=== PATIENT | female | born 1955 | race Two or more races ===

== ENCOUNTER 2019-08-30 08:10 | Day surgery (SDC) | payer MEDICAID ==
[~2019-08-30 08:10] MED LIST: Lactated Ringers 1,000 ML IV SCH; Lidocaine 1% 0 ML ONE; Lidocaine 1%/Sod Bicarbonate in NS 8.4% 1 ML Syringe IDERM PRN; Propofol 200 MG/20 ML SDV ONE; Sodium Chloride 0.9% 10 ML Syringe FLUSH PRN; fentaNYL 100 MCG/2 ML SDV ONE
[2019-08-30] MEDS: Lactated Ringers 1,000 ML IV SCH ×2 (08:42→11:00)
--- NOTE | 2019-08-30 09:22 | PCM.PREANE ---
Preanesthetic Assessment - Procedure Proposed Procedure: EGD and Colonoscopy - Anesthesia/Transfusion/Family Hx Anesthesia History: Prior Anesthesia Without Reaction Family History of Anesthesia Reaction: No - Review of Systems General: Night Sweats Pulmonary: No Symptoms, Other (SOB episode 2 months ago. Started on Furosemide daily with much improvement. ECHO also done with mild aortic and mitral valve regurgitation. EF 55-60%. Denies SOB today. ) Cardiovascular: No Symptoms, Other (Hypertension, EKG SR at 64 bpm. ) Gastrointestinal: No Symptoms Neurological: No Symptoms Other: Reports: None (Obesity with BMI 45), Diabetes (Blood Glucose 154 mg/dl) - Physical Assessment NPO Status Date: 08/29/19 NPO Status Time: 22:30 Vital Signs: Last Vital Signs Temp 36.4 C 08/30/19 08:15 Pulse 85 08/30/19 08:15 Resp 16 08/30/19 08:15 BP 186/70 H 08/30/19 09:00 Pulse Ox 95 08/30/19 08:15 Height: 1.55 m Weight: 112.037 kg ASA Class: 3 Mental Status: Alert & Oriented x3 Airway Class: Mallampati = 3 Dentition: Reports: Missing Tooth/Teeth (Decay noted at gumline, black. Denies loose teeth. Discussed bite block and possible dental injury to teeth. ), Caries Thyro-Mental Finger Breadths: 2 Mouth Opening Finger Breadths: 2 ROM/Head Extension: Full Lungs: Clear to Auscultation, Normal Respiratory Effort - Lab Values: Laboratory Last Values POC Glucose 154 mg/dL (80-115) H 08/30/19 08:42 - Allergies Allergies/Adverse Reactions: Allergies Allergy/AdvReac Type Severity Reaction Status Date / Time No Known Allergies Allergy Verified 08/30/19 09:09 - Acknowledgements Anesthesia Type Planned: MAC Pt an Appropriate Candidate for the Planned Anesthesia: Yes Alternatives and Risks of Anesthesia Discussed w Pt/Guardian: Yes Pt/Guardian Understands and Agrees with Anesthesia Plan: Yes PreAnesthesia Questionnaire HEENT History: Reports: Impaired Vision, Other (See Below) Other HEENT History: wears glasses Cardiovascular History: Reports: High Cholesterol, Hypertension Respiratory History: Reports: Asthma Genitourinary History: Reports: None 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 History: Reports: None Neurological History: Reports: None Psychiatric History: Reports: None Endocrine/Metabolic History: Reports: Diabetes, Type II Hematologic History: Reports: None Immunologic History: Reports: None Oncologic (Cancer) History: Reports: None Dermatologic History: Reports: None - Past Surgical History Head Surgeries/Procedures: Reports: None Cardiovascular Surgical History: Reports: None Respiratory Surgical History: Reports: None GI Surgical History: Reports: Colonoscopy Female Surgical History: Reports: Section Male Surgical History: Reports: None Endocrine Surgical History: Reports: None Neurological Surgical History: Reports: None Musculoskeletal Surgical History: Reports: None Oncologic Surgical History: Reports: None Dermatological Surgical History: Reports: None - SUBSTANCE USE Smoking Status *Q: Former Smoker Recreational Drug Use History: No - HOME MEDS Home Medications: Home Meds Insulin Glargine,Hum.Rec.Anlog [Lantus Solostar] 35 units SQ BID 04/14/18 [ History] Aspirin [Adult Low Dose Aspirin EC] 81 mg PO DAILY 08/29/19 [History] Furosemide [Lasix] 20 mg PO DAILY 08/29/19 [History] Losartan [Cozaar] 50 mg PO DAILY 08/29/19 [History] Simvastatin [Zocor] 40 mg PO BEDTIME 08/29/19 [History] metFORMIN HCl [Metformin HCl] 1,000 mg PO BID 08/29/19 [History] - CURRENT (IN HOUSE) MEDS Current Meds: Current Medications Lactated Ringer's (Ringers, Lactated) 1,000 mls @ 125 mls/hr IV ASDIRECTED RAUDEL Stop: 08/30/19 23:00 Last Admin: 08/30/19 08:42 Dose: 125 mls/hr Lidocaine/Sodium Bicarbonate (Buffered Lidocaine 1% In Ns 8.4%) 0.25 ml IDERM ONETIME PRN PRN Reason: Prior to IV Start Stop: 08/30/19 23:00 Last Admin: 08/30/19 08:40 Dose: 0.25 ml Sodium Chloride (Saline Flush) 10 ml FLUSH ASDIRECTED PRN PRN Reason: Keep Vein Open Stop: 08/30/19 18:00 Discontinued Medications Fentanyl (Sublimaze) Confirm Administered Dose 100 mcg .ROUTE .STK-MED ONE Stop: 04/15/18 13:41 Lactated Ringer's (Ringers, Lactated) 1,000 mls @ 125 mls/hr IV ASDIRECTED RAUDEL Stop: 04/15/18 23:00 Lidocaine HCl (Xylocaine-Mpf 1%) Confirm Administered Dose 4 mls @ as directed .ROUTE .STK-MED ONE Stop: 04/15/18 13:42 Lactated Ringer's (Ringers, Lactated) 1,000 mls @ 125 mls/hr IV ASDIRECTED RAUDEL Stop: 08/23/19 23:00 Lidocaine/Sodium Bicarbonate (Buffered Lidocaine 1% In Ns 8.4%) 0.25 ml IDERM ONETIME PRN PRN Reason: Prior to IV Start Stop: 04/15/18 18:00 Lidocaine/Sodium Bicarbonate (Buffered Lidocaine 1% In Ns 8.4%) 0.25 ml IDERM ONETIME PRN PRN Reason: Prior to IV Start Stop: 08/23/19 18:00 Propofol (Diprivan 20 Ml) Confirm Administered Dose 400 mg .ROUTE .STK-MED ONE Stop: 04/15/18 13:41 Sodium Chloride (Saline Flush) 10 ml FLUSH ASDIRECTED PRN PRN Reason: Keep Vein Open Stop: 04/15/18 18:00 Sodium Chloride (Saline Flush) 10 ml FLUSH ASDIRECTED PRN PRN Reason: Keep Vein Open Stop: 08/23/19 18:00
[2019-08-30] MEDS ORDERED: Propofol 200 MG/20 ML SDV ONE ×2 (09:24→09:25)
[2019-08-30] MEDS ORDERED: Lidocaine 1% 4 ML ONE (09:27)
[2019-08-30] MEDS ORDERED: fentaNYL 100 MCG/2 ML SDV ONE (09:28)
--- NOTE | 2019-08-30 10:24 | PCM.OPNOTE ---
- General Post-Op/Procedure Note Date of Surgery/Procedure: 08/30/19 Operative Procedure(s): EGD and colonoscopy Findings: 1. Gastritis 2. Irregular GE junction 3. Poor preparation with large particulate stool matter in the colon 4. First colon polyp 5. Rectal polyps Pre Op Diagnosis: History of colon polyps, dysphagia Post-Op Diagnosis: Same Anesthesia Technique: MAC Primary Surgeon: Kaya Alcocer Anesthesia Provider: Brian Ivey Pathology: 1. Antrum biopsy 2. GE junction biopsy 3. Transverse colon polyp 4. Rectal polyps x2 Fluid Replacement, Intraop: 1,000 Output, Urine Amount: 0 EBL in mLs: 0 Complications: None apparent Condition: Good
--- NOTE | 2019-08-30 10:32 | PCM48HPAN ---
Post Anesthesia Note - EVALUATION WITHIN 48HRS OF ANESTHETIC Vital Signs in Normal Range: Yes Patient Participated in Evaluation: Yes (still somewhat somnolent) Respiratory Function Stable: Yes Airway Patent: Yes Cardiovascular Function Stable: Yes Hydration Status Stable: Yes Pain Control Satisfactory: Yes Nausea and Vomiting Control Satisfactory: Yes Mental Status Recovered: Yes (still somewhat somnolent) Vital Signs: Last Vital Signs Temp 97.1 F 08/30/19 10:22 Pulse 78 08/30/19 10:22 Resp 16 08/30/19 10:22 BP 155/69 H 08/30/19 10:22 Pulse Ox 97 08/30/19 10:22
--- NOTE | 2019-08-30 12:06 | PCM.PRNOTE ---
- Free Text/Narrative Note: Operative Report Date of Procedure: August 30, 2019 Pre Op Diagnosis: Dysphagia and history of colon polyps Post-Op Diagnosis: Same Operative Procedures: 1. EGD with biopsy 2. Colonoscopy to the cecum Primary Surgeon: Kaya Alcocer MD Anesthesia Provider: Brian Ivey CRNA Anesthesia Technique: MAC IV Fluid Replacement, Intraop: 1000cc crystalloid Output, Urine Amount: 0cc EBL in mLs: 0cc Findings: 1. Gastritis 2. Irregular GE junction 3. Poor preparation with large particulate stool matter in the colon 4. Transverse colon polyp 5. Rectal polyps Specimens: 1. Antrum biopsy 2. GE junction biopsy 3. Transverse colon polyp 4. Rectal polyps x2 Drain/Tubes: None Indication: The patient is a 63-year-old lady who presented to the clinic with numbness of dysphasia as well as a history of colon polyps. The patient was consented for a diagnostic EGD and colonoscopy. Risks of bleeding, and perforation were discussed, and the patient agreed to the risks and wished to proceed. Description of the procedure: The patient was taken back to the endoscopy suite, and placed in the left lateral decubitus position. A bite block was placed. The patient was sedated with MAC anesthesia. The Olympus video endoscope was inserted into the oropharynx and guided under direct vision into the esophagus, stomach, and duodenum. The duodenal bulb and second portion of the duodenum were unremarkable. The scope was withdrawn to the gastric antrum which was inspected and cold biopsy forceps were used to take tissue samples for H. pylori. The scope was retroflexed. There was no increased fluid, food or secretions in the upper gastrointestinal tract. There was mild erythema throughout consistent with gastritis as well as some small petechial areas in the gastric antrum. No erosions or ulcers were noted. The scope was withdrawn to the esophagus. The Z- line some irregularity and biopsies were taken in 4 quadrants using cold biopsy forceps. No specific Barretts esophagus changes were noted. The endoscope was then withdrawn Next, anorectal examination was performed. No lesions, masses or hemorrhoids were noted externally or on palpation. The scope was placed into the rectum and advanced to cecum. Upon reaching the cecum, and the patients cecum was entered. There was minimal tortuosity of the colon. The ileocecal valve was well visualized and the appendiceal orifice identified. At this point, the scope was slowly withdrawn, paying attention to the mucosa. The patient had a poor bowel prep, large particulate stool was residual in the cecum and ascending colon preventing visualization of the mucosa. This cannot be removed with washing or suctioning. A fat, 2 to 3 mm transverse colon polyp was noted and removed using jumbo cold biopsy forceps. 2 flat polyps were noted in the rectum measuring 2 to 3 mm, these were removed using jumbo cold biopsy forceps. In the rectum, scope was retroflexed and some hemorrhoidal tissue was noted. The scope was placed back in the lumen and excess air was aspirated. The scope was removed. The patient tolerated the procedure very well. Complications: None apparent Condition: The patient was transported to PACU in stable condition. Kaya Alcocer MD General Surgery
== END 2019-08-30 11:33 | disposition home or self-care (01) ==
LOC: JD.SDS 08:10
PROVIDERS: ATTEND Surgery
DX: Z12.11 Encounter for screening for malignant neoplasm of colon (principal); K29.70 Gastritis, unspecified, without bleeding; K63.5 Polyp of colon; K62.1 Rectal polyp; K20.9 Esophagitis, unspecified; K22.8 Other specified diseases of esophagus; Q43.8 Other specified congenital malformations of intestine; K64.9 Unspecified hemorrhoids; I12.9 Hypertensive chronic kidney disease with stage 1 through stage 4 chronic kidney disease, or unspecified chronic kidney disease; E11.22 Type 2 diabetes mellitus with diabetic chronic kidney disease; N18.9 Chronic kidney disease, unspecified; E78.5 Hyperlipidemia, unspecified; Z86.010 Personal history of colon polyps; Z79.4 Long term (current) use of insulin; Z79.82 Long term (current) use of aspirin; Z87.891 Personal history of nicotine dependence; Z79.899 Other long term (current) drug therapy
CPT/HCPCS: 43239; 45380; 82962; J2001; J2704; J3010; J7120

== ENCOUNTER 2019-11-22 15:30 | Emergency (ER) | payer MEDICAID ==
--- NOTE | 2019-11-22 16:04 | EDM.PDOC ---
ED HPI GENERAL MEDICAL PROBLEM - General Chief Complaint: Back Pain or Injury Stated Complaint: BACK PAIN Time Seen by Provider: 11/22/19 15:39 Source of Information: Reports: Patient History Limitations: Reports: No Limitations - History of Present Illness INITIAL COMMENTS - FREE TEXT/NARRATIVE: Patient is a 63-year-old female who presents with complaints of a left lateral neck pain that radiates to her left shoulder and left upper back. The pain is worse with movement of the head and is tender to palpation. She is concerned because in the past she has had a pleural effusion which caused pain in her back and she wants to ensure that she does not have fluid in her lungs. She denies any shortness of breath or chest pain, however does states she gets a little winded with exertion. She did not do any heavy lifting today. She denies any chest pain, diaphoresis, or shortness of breath at rest. She has a past medical history significant for high cholesterol, hypertension, and a cardiac murmur diagnosed about 7 years ago. She cannot remember the cause of her murmur. She has no history of AR or congestive heart failure. Left Back Pain Score (Numeric/FACES): 8 - Related Data Allergies Allergy/AdvReac Type Severity Reaction Status Date / Time No Known Allergies Allergy Verified 11/22/19 15:46 Home Meds: Home Meds Insulin Glargine,Hum.Rec.Anlog [Lantus Solostar] 35 units SQ BID 04/14/18 [ History] Aspirin [Adult Low Dose Aspirin EC] 81 mg PO DAILY 08/29/19 [History] Furosemide [Lasix] 20 mg PO DAILY 08/29/19 [History] Losartan [Cozaar] 50 mg PO DAILY 08/29/19 [History] Simvastatin [Zocor] 40 mg PO BEDTIME 08/29/19 [History] metFORMIN HCl [Metformin HCl] 1,000 mg PO BID 08/29/19 [History] Past Medical History HEENT History: Reports: Impaired Vision, Other (See Below) Other HEENT History: wears glasses Cardiovascular History: Reports: Heart Murmur, High Cholesterol, Hypertension Respiratory History: Reports: Asthma Genitourinary History: Reports: None 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 History: Reports: None Neurological History: Reports: None Psychiatric History: Reports: None Endocrine/Metabolic History: Reports: Diabetes, Type II Hematologic History: Reports: None Immunologic History: Reports: None Oncologic (Cancer) History: Reports: None Dermatologic History: Reports: None - Past Surgical History Head Surgeries/Procedures: Reports: None Cardiovascular Surgical History: Reports: None Respiratory Surgical History: Reports: None GI Surgical History: Reports: Colonoscopy Female Surgical History: Reports: Section Endocrine Surgical History: Reports: None Neurological Surgical History: Reports: None Musculoskeletal Surgical History: Reports: None Oncologic Surgical History: Reports: None Dermatological Surgical History: Reports: None Social & Family History - Tobacco Use Smoking Status *Q: Never Smoker Second Hand Smoke Exposure: No - Caffeine Use Caffeine Use: Reports: None - Recreational Drug Use Recreational Drug Use: No ED ROS GENERAL - Review of Systems Review Of Systems: See Below Constitutional: Reports: No Symptoms. Denies: Fever, Chills HEENT: Reports: No Symptoms Respiratory: Reports: No Symptoms. Denies: Shortness of Breath, Cough Cardiovascular: Reports: Dyspnea on Exertion. Denies: Chest Pain, Lightheadedness, Palpitations, Syncope Endocrine: Reports: No Symptoms GI/Abdominal: Reports: No Symptoms. Denies: Abdominal Pain : Reports: No Symptoms Musculoskeletal: Reports: Neck Pain (left lateral), Shoulder Pain (left ), Back Pain (left upper ) Skin: Reports: No Symptoms Neurological: Reports: No Symptoms Psychiatric: Reports: No Symptoms Hematologic/Lymphatic: Reports: No Symptoms Immunologic: Reports: No Symptoms ED EXAM, UPPER BACK/NECK PAIN - Physical Exam Exam: See Below Exam Limited By: No Limitations General Appearance: Alert, WD/WN, No Apparent Distress Head Exam: Atraumatic, Normocephalic Neck Exam: Full Range of Motion, Normal Alignment, Normal Inspection, Tenderness (Left lateral neck) Cardiovascular/Respiratory: Regular Rate, Rhythm, Normal Peripheral Pulses, No JVD, Normal Breath Sounds, No Respiratory Distress, Murmur GI/Abdominal: Normal Bowel Sounds, Soft, Non-Tender, No Organomegaly, No Distention, No Abnormal Bruit, No Mass Back Exam: Normal Inspection, Full Range of Motion, Other (Tenderness to palpation medial to the left scapula) Extremities: Normal Inspection, Normal Range of Motion, Non-Tender, No Pedal Edema, Normal Capillary Refill Neurologic: ball holder II-XII nml As Tested, No Motor/Sensory Deficits, Alert, Normal Mood/Affect, Oriented x 3 Psychiatric: Normal Affect, Normal Mood Skin Exam: Normal Color, Warm/Dry EKG INTERPRETATION EKG Date: 11/22/19 Time: 16:10 Rhythm: NSR Rate (Beats/Min): 63 Vivian: Normal P-Wave: Present QRS: Normal ST-T: Normal QT: Normal Comparison: NA - No Prior EKG Course - Vital Signs Last Recorded V/S: Last Vital Signs Temp 97.6 F 11/22/19 18:00 Pulse 70 11/22/19 18:00 Resp 18 11/22/19 18:00 BP 187/70 H 11/22/19 18:00 Pulse Ox 95 11/22/19 18:00 - Orders/Labs/Meds Orders: Active Orders 24 hr Category Date Time Status Cardiac Monitoring [RC] . DIRECTED Care 11/22/19 16:57 Active EKG Documentation Completion [RC] STAT Care 11/22/19 16:04 Active Chest 2V [CR] Stat Exams 11/22/19 16:03 Taken Labs: Laboratory Tests 11/22/19 11/22/19 11/22/19 Range/Units 16:20 16:20 16:20 WBC 9.96 (3.98-10.04) K/mm3 RBC 4.53 (3.98-5.22) M/mm3 Hgb 12.3 (11.2-15.7) gm/dl Hct 39.2 (34.1-44.9) % MCV 86.5 (79.4-94.8) fl MCH 27.2 (25.6-32.2) pg MCHC 31.4 L (32.2-35.5) g/dl RDW Std Deviation 45.2 (36.4-46.3) fL Plt Count 192 (182-369) K/mm3 MPV 12.4 H (9.4-12.3) fl Neut % (Auto) 68.1 (34.0-71.1) % Lymph % (Auto) 22.2 (19.3-51.7) % Larimer % (Auto) 6.9 (4.7-12.5) % Eos % (Auto) 2.1 (0.7-5.8) Baso % (Auto) 0.5 (0.1-1.2) % Neut # (Auto) 6.78 H (1.56-6.13) K/mm3 Lymph # (Auto) 2.21 (1.18-3.74) K/mm3 Larimer # (Auto) 0.69 H (0.24-0.36) K/mm3 Eos # (Auto) 0.21 (0.04-0.36) K/mm3 Baso # (Auto) 0.05 (0.01-0.08) K/mm3 APTT 25 (22-31) SECONDS Sodium 138 (136-145) mEq/L Potassium 4.6 (3.5-5.1) mEq/L Chloride 103 (98-107) mEq/L Carbon Dioxide 27 (21-32) mEq/L Anion Gap 12.6 (5-15) BUN 28 H (7-18) mg/dL Creatinine 1.2 H (0.55-1.02) mg/dL Est Cr Clr Drug Dosing 39.18 mL/min Estimated GFR (MDRD) 45 (>60) mL/min BUN/Creatinine Ratio 23.3 H (14-18) Glucose 95 (80-115) mg/dL Calcium 8.8 (8.5-10.1) mg/dL Total Bilirubin 0.3 (0.2-1.0) mg/dL AST 12 L (15-37) U/L ALT 20 (14-59) U/L Alkaline Phosphatase 74 (46-116) U/L Troponin I 0.122 H* (0.00-0.056) ng/mL Total Protein 6.7 (6.4-8.2) g/dl Albumin 2.9 L (3.4-5.0) g/dl Globulin 3.8 gm/dL Albumin/Globulin Ratio 0.8 L (1-2) Meds: Medications Discontinued Medications Generic Name Dose Route Start Last Admin Trade Name Freq PRN Reason Stop Dose Admin Aspirin 324 mg 11/22/19 16:51 11/22/19 17:29 Aspirin PO 11/22/19 16:52 324 mg ONETIME ONE Administration Enoxaparin Sodium 120 mg 11/22/19 17:14 11/22/19 17:35 Lovenox SUBCUT 11/22/19 17:15 120 mg ONETIME ONE Administration Heparin Sodium (Porcine) 4,000 units 11/22/19 16:58 11/22/19 17:54 Heparin Sodium IVPUSH 11/22/19 16:59 Not Given .BOLUS ONE Heparin Sodium/Dextrose 25,000 units in 500 mls @ 20 mls/hr 11/22/19 17:00 Heparin 25,000 Units In D5w 500 Ml IV TITRATE [facility] Protocol 1,000 UNITS/HR Sodium Chloride 1,000 mls @ 125 mls/hr 11/22/19 17:15 11/22/19 17:30 Normal Saline IV 125 mls/hr ASDIRECTED RAUDEL Administration Metoprolol Tartrate 12.5 mg 11/22/19 16:55 11/22/19 17:31 Lopressor PO 11/22/19 16:56 12.5 mg ONETIME ONE Administration - Re-Assessments/Exams Free Text/Narrative Re-Assessment/Exam: 11/22/19 1651 Hematology was significant for a BUN elevated at 28, creatinine 1.2, troponin positive at 0.122. I have ordered aspirin 324 mg, metoprolol 12.5 mg p.o., NS at 125 ml/hr, and a heparin drip per non-STEMI protocol. I will call Nik to speak with cardiology. 11/22/19 1725 Called [facility] and spoke with medical malpractice paralegal on-call, Dr. Skinner. He recommended that we administer Lovenox 1 mg/kg instead of heparin drip. I have canceled the heparin drip and ordered Lovenox. He recommended patient be transferred to [place] to trend troponins and complete stress test. Spoke to the hospitalist on-call, Dr. Corrigan. He accepted the patient for a transfer with direct admission. [facility] will transport by ground ALS. Departure - Departure Time of Disposition: 17:25 Disposition: DC/Tfer to Acute Hospital 02 Condition: Good Clinical Impression: Non-STEMI (non-ST elevated myocardial infarction) - Discharge Information Referrals: Ana María Gibbs PA-C [Primary Care Provider] - Forms: ED Department Discharge Sepsis Event Note - Evaluation Sepsis Screening Result: No Definite Risk - Focused Exam Vital Signs: Vital Signs Temp Pulse Pulse Resp BP BP Pulse Ox 11/22/19 18:00 97.6 F 70 18 187/70 H 95 11/22/19 17:31 71 201/81 H 11/22/19 15:42 97.6 F 74 18 175/75 H 97 Date Exam was Performed: 11/22/19 Time Exam was Performed: 22:23 - My Orders Last 24 Hours: My Active Orders 11/22/19 16:03 Chest 2V [CR] Stat 11/22/19 16:04 EKG Documentation Completion [RC] STAT 11/22/19 16:57 Cardiac Monitoring [RC] . DIRECTED - Assessment/Plan Last 24 Hours: My Active Orders 11/22/19 16:03 Chest 2V [CR] Stat 11/22/19 16:04 EKG Documentation Completion [RC] STAT 11/22/19 16:57 Cardiac Monitoring [RC] . DIRECTED
[2019-11-22] MEDS ORDERED: Aspirin 81 MG Tab.Chew PO ONE (16:51)
[2019-11-22] MEDS ORDERED: Metoprolol Tartrate 25 MG Tab PO ONE (16:55)
[2019-11-22] MEDS ORDERED: Heparin Sodium 5,000 Units/ML Vial IVPUSH ONE (16:58)
[2019-11-22] MEDS ORDERED: Heparin Sodium/D5W 25,000 UNITS/500 ML BAG IV SCH (17:00)
[2019-11-22] MEDS ORDERED: Enoxaparin 120 MG/0.8 ML Syringe SUBCUT ONE (17:14)
[2019-11-22] MEDS ORDERED: Sodium Chloride 0.9% 1,000 ML IV SCH (17:15)
--- NOTE | 2019-11-23 07:16 | CR ---
Chest: 2 views of the chest were obtained. Comparison: No prior chest imaging is available. Heart size and mediastinum are within normal limits. Lungs are clear with no acute parenchymal change. Slight degenerative change is scattered within the spine. Impression: 1. Nothing acute is appreciated on 2 view chest x-ray. Diagnostic code #1 This report was dictated in MDT
== END 2019-11-22 18:20 ==
LOC: JD.ED 15:30
DX: I21.4 Non-ST elevation (NSTEMI) myocardial infarction (principal); E11.9 Type 2 diabetes mellitus without complications; J45.909 Unspecified asthma, uncomplicated; E78.00 Pure hypercholesterolemia, unspecified; I10 Essential (primary) hypertension; Z79.4 Long term (current) use of insulin; Z79.82 Long term (current) use of aspirin; Z79.899 Other long term (current) drug therapy
CPT/HCPCS: 36415; 71046; 80053; 84484; 85025; 85730; 93005; 96372; 99284; A9270; J1650; J7030

== ENCOUNTER 2021-05-19 09:53 | Inpatient (IN) | payer MEDICAID ==
[2021-05-19] MEDS ORDERED: Sodium Chloride 0.9% 10 ML Syringe FLUSH PRN (11:03)
--- NOTE | 2021-05-19 11:52 | EDM.PDOC ---
ED HPI GENERAL MEDICAL PROBLEM - General Chief Complaint: Respiratory Problem Stated Complaint: COUGH CONGESTION Time Seen by Provider: 05/19/21 10:33 Source of Information: Reports: Patient History Limitations: Reports: No Limitations - History of Present Illness INITIAL COMMENTS - FREE TEXT/NARRATIVE: 65-year-old female presents the emergency department with complaints of wor sening shortness of breath and congested cough. Patient states that the symptoms started approximately 3 days ago and is progressively worsening. She states she was seen at the walk-in clinic yesterday and they gave her some pills for her cough and they have not helped. She denies any recent fever, chills, headache, sore throat, nausea, vomiting or diarrhea. She denies any urinary symptoms. She states that shortness of breath worsens with any exertion. She states she is only able to walk a few steps and then she has to sit down and rest. O2 saturations during triage were in the low 80s with exertion. She denies any chest pain or pressure associated with this. Patient does have a history of diabetes and hypertension. - Related Data Allergies Allergy/AdvReac Type Severity Reaction Status Date / Time No Known Allergies Allergy Verified 05/19/21 10:36 Home Meds: Home Meds Insulin Glargine,Hum.Rec.Anlog [Lantus Solostar] 35 units SQ BID 04/14/18 [History] Aspirin [Adult Low Dose Aspirin EC] 81 mg PO DAILY 08/29/19 [History] Losartan [Cozaar] 50 mg PO DAILY 08/29/19 [History] Simvastatin [Zocor] 40 mg PO BEDTIME 08/29/19 [History] metFORMIN HCl [Metformin HCl] 1,000 mg PO BID 08/29/19 [History] Past Medical History HEENT History: Reports: Impaired Vision, Other (See Below) Other HEENT History: wears glasses Cardiovascular History: Reports: Heart Murmur, High Cholesterol, Hypertension Respiratory History: Reports: Asthma Genitourinary History: Reports: None [employer]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: Musculoskeletal History: Reports: None Neurological History: Reports: None Psychiatric History: Reports: None Endocrine/Metabolic History: Reports: Diabetes, Type II Hematologic History: Reports: None Immunologic History: Reports: None Oncologic (Cancer) History: Reports: None Dermatologic History: Reports: None - Past Surgical History Head Surgeries/Procedures: Reports: None Cardiovascular Surgical History: Reports: None Respiratory Surgical History: Reports: None GI Surgical History: Reports: Colonoscopy Female Surgical History: Reports: Section Endocrine Surgical History: Reports: None Neurological Surgical History: Reports: None Musculoskeletal Surgical History: Reports: None Oncologic Surgical History: Reports: None Dermatological Surgical History: Reports: None Social & Family History - Tobacco Use Tobacco Use Status *Q: Never Tobacco User - Caffeine Use Caffeine Use: Reports: Coffee - Recreational Drug Use Recreational Drug Use: No ED ROS GENERAL - Review of Systems Review Of Systems: Comprehensive ROS is negative, except as noted in HPI. ED EXAM, GENERAL - Physical Exam Exam: See Below Exam Limited By: No Limitations General Appearance: Alert, WD/WN, Mild Distress Ears: Normal External Exam, Hearing Grossly Normal Nose: Normal Inspection Throat/Mouth: Normal Inspection, Normal Lips, Normal Voice, No Airway Compromise Head: Atraumatic, Normocephalic Neck: Normal Inspection, Supple Respiratory/Chest: No Accessory Muscle Use, Chest Non-Tender, Respiratory Distress, Crackles, Wheezing Cardiovascular: Normal Peripheral Pulses, Regular Rate, Rhythm, No Edema, No Murmur Peripheral Pulses: 2+: Radial (L), Radial (R) GI/Abdominal: Normal Bowel Sounds, Soft, Non-Tender, No Distention (Female) Exam: Deferred Rectal (Female) Exam: Deferred Back Exam: Normal Inspection Extremities: Normal Inspection, Normal Range of Motion, Non-Tender, No Pedal Edema, Normal Capillary Refill Neurological: Alert, Oriented, Normal Cognition Psychiatric: Normal Affect, Normal Mood Skin Exam: Warm, Dry, Intact, Normal Color, No Rash Lymphatic: No Adenopathy #1 Interpretation EKG Date: 05/19/21 Time: 11:17 Rhythm: NSR Rate (Beats/Min): 89 [place]: Normal P-Wave: Present QRS: Normal ST-T: Normal QT: Normal Comparison: NA - No Prior EKG EKG Interpretation Comments: Per Dr. Santos interpretation: Sinus rhythm at 89 bpm; baseline wander in lead V1 Course - Vital Signs Text/Narrative:: As stated above, patient presents with 3-day history of worsening shortness of breath. Only able to walk a few steps and then needing to rest to catch her breath. Also complains of persistent loose cough. Upon exam, the patient has audible crackles noted. She also has expiratory wheezes noted bilaterally. Heart rate is regular and I do not appreciate a murmur. She does not have any edema to her bilateral lower extremities. Blood pressure is elevated at 190/76. O2 saturations are 85% on room air. I applied oxygen at 2 L per nasal cannula and patient's O2 saturations came up to 92%. I have ordered a Covid swab, portable chest x-ray, lab studies to include a CBC, CMP, C-reactive protein, magnesium, troponin and a proBNP. Last Recorded V/S: Last Vital Signs Temp Pulse 99 05/19/21 14:44 Resp 24 H 05/19/21 14:44 BP 137/80 05/19/21 14:44 Pulse Ox 94 L 05/19/21 14:44 - Orders/Labs/Meds Orders: Active Orders 24 hr Category Date Time Status Patient Status [ADT] Routine ADT 05/19/21 17:17 Active Antiembolic Devices [RC] PER UNIT ROUTINE Care 05/19/21 17:21 Active Blood Glucose Check, Bedside [RC] QIDACANDBED Care 05/19/21 17:19 Active Height and Weight [RC] DAILY Care 05/19/21 17:19 Active Intake and Output [RC] QSHIFT Care 05/19/21 17:19 Active Oxygen Therapy [RC] PRN Care 05/19/21 17:17 Active Pulse Oximetry [RC] CONTINUOUS Care 05/19/21 17:19 Active RT Aerosol Therapy [RC] ASDIRECTED Care 05/19/21 12:27 Active Up With Assistance [RC] ASDIRECTED Care 05/19/21 17:19 Active VTE/DVT Education [RC] PER UNIT ROUTINE Care 05/19/21 17:17 Active VTE/DVT Education [RC] PER UNIT ROUTINE Care 05/19/21 17:19 Active Vital Signs [RC] Q4H Care 05/19/21 17:17 Active Consult to Diabetic Nurse Specialist [CONS] Routine Cons 05/19/21 17:22 Active Consult to Homeland Security Program Specialist [CONS] Routine Cons 05/19/21 17:22 Active Respiratory Care Assess and Treatment [CONS] Routine Cons 05/19/21 17:22 Act glory 2 Gram Sodium Diet [DIET] Diet 05/19/21 Dinner Active Consistent Carbohydrate Diet [DIET] Diet 05/19/21 Dinner Active Chest 1V Frontal [CR] Stat Exams 05/19/21 11:03 Taken Echo 2D wo Cont [US] Stat Exams 05/20/21 08:00 Ordered BASIC METABOLIC PANEL,BMP [CHEM] DAILY Lab 05/20/21 06:00 Ordered BASIC METABOLIC PANEL,BMP [CHEM] DAILY Lab 05/21/21 06:00 Ordered BASIC METABOLIC PANEL,BMP [CHEM] DAILY Lab 05/22/21 06:00 Ordered BASIC METABOLIC PANEL,BMP [CHEM] DAILY Lab 05/23/21 06:00 Ordered CBC WITH AUTO DIFF [HEME] DAILY Lab 05/20/21 06:00 Ordered CBC WITH AUTO DIFF [HEME] DAILY Lab 05/21/21 06:00 Ordered CBC WITH AUTO DIFF [HEME] DAILY Lab 05/22/21 06:00 Ordered CBC WITH AUTO DIFF [HEME] DAILY Lab 05/23/21 06:00 Ordered MAGNESIUM [CHEM] AM Lab 05/20/21 05:11 Ordered PRO B-TYPE NATRIUR PEPT,BNPPRO [CHEM] Stat Lab 05/20/21 06:00 Ordered TROPONIN I [CHEM] AM Lab 05/20/21 05:11 Ordered Acetaminophen [TylenoL] Med 05/19/21 17:19 Active 650 mg PO Q4H PRN Docusate Sodium [Colace] Med 05/19/21 17:19 Active 100 mg PO BID PRN Furosemide [Lasix] Med 05/19/21 21:00 Active 40 mg IVPUSH BID Heparin Sodium Med 05/19/21 17:30 Active 5,000 units SUBCUT Q8H Ondansetron [Zofran ODT] Med 05/19/21 17:19 Active 4 mg PO Q4H PRN Ondansetron [Zofran] Med 05/19/21 17:19 Active 4 mg IV Q4H PRN Sodium Chloride 0.9% [Saline Flush] Med 05/19/21 11:03 Active 10 ml FLUSH ASDIRECTED PRN Saline Lock Insert [OM.PC] Stat Oth 05/19/21 11:03 Ordered Sequential Compression Device [OM.PC] Per Unit Routine Oth 05/19/21 17:20 Ordered Resuscitation Status Routine Resus Stat 05/19/21 17:17 Ordered Medication Orders Acetaminophen (Acetaminophen 325 Mg Tab) 650 mg PO Q4H PRN PRN Reason: Pain (Mild 1-3)/fever Docusate Sodium (Docusate Sodium 100 Mg Cap) 100 mg PO BID PRN PRN Reason: Constipation Furosemide (Furosemide 40 Mg/4 Ml Vial) 40 mg IVPUSH BID RAUDEL Heparin Sodium (Porcine) (Heparin Sodium 5,000 Units/Ml Vial) 5,000 units SUBCUT Q8H RAUDEL Ondansetron HCl (Ondansetron 4 Mg Tab.Dis) 4 mg PO Q4H PRN PRN Reason: nausea, able to take PO Ondansetron HCl (Ondansetron 4 Mg/2 Ml Sdv) 4 mg IV Q4H PRN PRN Reason: Nausea/Vomiting Sodium Chloride (Sodium Chloride 0.9% 10 Ml Syringe) 10 ml FLUSH ASDIRECTED PRN PRN Reason: Keep Vein Open Last Admin: 05/19/21 14:01 Dose: 10 ml Documented by: PAIGE Labs: Laboratory Tests 05/19/21 05/19/21 05/19/21 Range/Units 11:20 11:20 11:20 WBC 7.86 (3.98-10.04) K/mm3 RBC 4.52 (3.98-5.22) M/mm3 Hgb 12.3 (11.2-15.7) gm/dl Hct 39.3 (34.1-44.9) % MCV 86.9 (79.4-94.8) fl MCH 27.2 (25.6-32.2) pg MCHC 31.3 L (32.2-35.5) g/dl RDW Std Deviation 44.2 (36.4-46.3) fL Plt Count 157 L (182-369) K/mm3 MPV 11.8 (9.4-12.3) fl Neut % (Auto) 72.4 H (34.0-71.1) % Lymph % (Auto) 12.5 L (19.3-51.7) % Phillips % (Auto) 12.8 H (4.7-12.5) % Eos % (Auto) 1.7 (0.7-5.8) Baso % (Auto) 0.5 (0.1-1.2) % Neut # (Auto) 5.69 (1.56-6.13) K/mm3 Lymph # (Auto) 0.98 L (1.18-3.74) K/mm3 Phillips # (Auto) 1.01 H (0.24-0.36) K/mm3 Eos # (Auto) 0.13 (0.04-0.36) K/mm3 Baso # (Auto) 0.04 (0.01-0.08) K/mm3 Sodium 136 (136-145) mEq/L Potassium 3.8 (3.5-5.1) mEq/L Chloride 101 (98-107) mEq/L Carbon Dioxide 27 (21-32) mEq/L Anion Gap 11.8 (5-15) BUN 18 (7-18) mg/dL Creatinine 1.6 H (0.55-1.02) mg/dL Est Cr Clr Drug Dosing 28.61 mL/min Estimated GFR (MDRD) 32 (>60) mL/min BUN/Creatinine Ratio 11.3 L (14-18) Glucose 190 H (70-99) mg/dL Calcium 8.6 (8.5-10.1) mg/dL Magnesium 1.6 L (1.8-2.4) mg/dL Total Bilirubin 0.4 (0.2-1.0) mg/dL AST 10 L (15-37) U/L ALT 13 L (14-59) U/L Alkaline Phosphatase 60 (46-116) U/L Troponin I (0.00-0.056) ng/mL C-Reactive Protein 3.0 H* (<1.0) mg/dL NT-Pro-B Natriuret Pep 33717 H (0-125) pg/mL Total Protein 6.6 (6.4-8.2) g/dl Albumin 2.5 L (3.4-5.0) g/dl Globulin 4.1 gm/dL Albumin/Globulin Ratio 0.6 L (1-2) SARS-CoV-2 RNA (DIAMOND) (NEGATIVE) 05/19/21 05/19/21 Range/Units 11:41 14:20 WBC (3.98-10.04) K/mm3 RBC (3.98-5.22) M/mm3 Hgb (11.2-15.7) gm/dl Hct (34.1-44.9) % MCV (79.4-94.8) fl MCH (25.6-32.2) pg MCHC (32.2-35.5) g/dl RDW Std Deviation (36.4-46.3) fL Plt Count (182-369) K/mm3 MPV (9.4-12.3) fl Neut % (Auto) (34.0-71.1) % Lymph % (Auto) (19.3-51.7) % Phillips % (Auto) (4.7-12.5) % Eos % (Auto) (0.7-5.8) Baso % (Auto) (0.1-1.2) % Neut # (Auto) (1.56-6.13) K/mm3 Lymph # (Auto) (1.18-3.74) K/mm3 Phillips # (Auto) (0.24-0.36) K/mm3 Eos # (Auto) (0.04-0.36) K/mm3 Baso # (Auto) (0.01-0.08) K/mm3 Sodium (136-145) mEq/L Potassium (3.5-5.1) mEq/L Chloride (98-107) mEq/L Carbon Dioxide (21-32) mEq/L Anion Gap (5-15) BUN (7-18) mg/dL Creatinine (0.55-1.02) mg/dL Est Cr Clr Drug Dosing mL/min Estimated GFR (MDRD) (>60) mL/min BUN/Creatinine Ratio (14-18) Glucose (70-99) mg/dL Calcium (8.5-10.1) mg/dL Magnesium (1.8-2.4) mg/dL Total Bilirubin (0.2-1.0) mg/dL AST (15-37) U/L ALT (14-59) U/L Alkaline Phosphatase (46-116) U/L Troponin I 0.175 H* (0.00-0.056) ng/mL C-Reactive Protein (<1.0) mg/dL NT-Pro-B Natriuret Pep (0-125) pg/mL Total Protein (6.4-8.2) g/dl Albumin (3.4-5.0) g/dl Globulin gm/dL Albumin/Globulin Ratio (1-2) SARS-CoV-2 RNA (DIAMOND) Negative (NEGATIVE) Meds: Medications Generic Name Dose Route Start Last Admin Trade Name Freq PRN Reason Stop Dose Admin Acetaminophen 650 mg 05/19/21 17:19 Acetaminophen 325 Mg Tab PO Q4H PRN Pain (Mild 1-3)/fever Docusate Sodium 100 mg 05/19/21 17:19 Docusate Sodium 100 Mg Cap PO BID PRN Constipation Furosemide 40 mg 05/19/21 21:00 Furosemide 40 Mg/4 Ml Vial IVPUSH BID RAUDEL Heparin Sodium (Porcine) 5,000 units 05/19/21 17:30 Heparin Sodium 5,000 Units/Ml Vial SUBCUT Q8H RAUDEL Ondansetron HCl 4 mg 05/19/21 17:19 Ondansetron 4 Mg Tab.Dis PO Q4H PRN nausea, able to take PO Ondansetron HCl 4 mg 05/19/21 17:19 Ondansetron 4 Mg/2 Ml Sdv IV Q4H PRN Nausea/Vomiting Sodium Chloride 10 ml 05/19/21 11:03 05/19/21 14:01 Sodium Chloride 0.9% 10 Ml Syringe FLUSH 10 ml ASDIRECTED PRN Administration Keep Vein Open Discontinued Medications Generic Name Dose Route Start Last Admin Trade Name Yuriq PRN Reason Stop Dose Admin Albuterol 2.5 mg 05/19/21 12:27 05/19/21 12:52 Albuterol 0.083% 2.5 Mg/3 Ml Neb Soln NEB 05/19/21 12:28 2.5 mg ONETIME ONE Administration Furosemide 40 mg 05/19/21 12:59 05/19/21 14:01 Furosemide 40 Mg/4 Ml Vial IVPUSH 05/19/21 13:00 40 mg NOW ONE Administration Magnesium Sulfate 4 gm/ Premix 50 mls @ 12.5 mls/hr 05/19/21 13:38 05/19/21 14:42 IV 05/19/21 17:37 12.5 mls/hr ONETIME ONE Administration - Re-Assessments/Exams Free Text/Narrative Re-Assessment/Exam: 05/19/21 13:39 Hematology reveals a WBC of 7.86, hemoglobin 12.3, hematocrit 39.3, platelet count 157 Chemistry reveals a sodium of 136, potassium 3.8, anion gap 11.8, BUN 18, creatinine 1.6, glucose 190, magnesium 1.6, AST 10, ALT 13, C-reactive protein 3.0, proBNP 10,935 Troponin is pending I have ordered for the patient to receive magnesium 4 g IV 05/19/21 13:40 She also received Lasix 40 mg IV. Believe this patient likely needs to be hospitalized and diuresed. I did speak with director of nursing at [facility] in [place] and they are going to speak to their physician on-call and see if they will accept this patient in transfer. 05/19/21 13:40 Reviewed the results with the patient and she states she does believe she has a history of congestive heart failure in the past and was treated for this in [place]. She does not currently take any diuretics. 05/19/21 14:11 [facility] in [place] returned my call and they state that they were unable to take my patient in transfer at this time. 05/19/21 15:35 Troponin 0 0.175. Patient denies having any chest pain or discomfort. I do feel this patient needs to be hospitalized however there is no beds available at this facility. Once I have Covid results back I will attempt to transfer the patient for hospitalization. 05/19/21 17:01 Covid test is negative. Chest xray shows pulmonary vascular congestion; formal radiologist report is pending. I have spoken with , hospitalist and he is going to come over to evaluate the patient. Departure - Departure Time of Disposition: 17:29 Disposition: Admitted As Inpatient 65 Condition: Good Clinical Impression: Congestive heart failure Qualifiers: Heart failure type: unspecified Heart failure chronicity: acute Qualified Code(s): I50.9 - Heart failure, unspecified - Discharge Information Referrals: PCP,None [Primary Care Provider] - Forms: ED Department Discharge Sepsis Event Note (ED) - Focused Exam Vital Signs: Vital Signs Pulse Resp BP Pulse Ox Pulse Ox 05/19/21 14:44 99 24 H 137/80 94 L 05/19/21 12:52 97 05/19/21 10:27 99 20 190/76 H 92 L - My Orders Last 24 Hours: My Active Orders 05/19/21 11:03 Chest 1V Frontal [CR] Stat Sodium Chloride 0.9% [Saline Flush] 10 ml FLUSH ASDIRECTED PRN Saline Lock Insert [OM.PC] Stat 05/19/21 12:27 RT Aerosol Therapy [RC] ASDIRECTED - Assessment/Plan Last 24 Hours: My Active Orders 05/19/21 11:03 Chest 1V Frontal [CR] Stat Sodium Chloride 0.9% [Saline Flush] 10 ml FLUSH ASDIRECTED PRN Saline Lock Insert [OM.PC] Stat 05/19/21 12:27 RT Aerosol Therapy [RC] ASDIRECTED
[2021-05-19] MEDS ORDERED: Albuterol 0.083% 2.5 MG/3 ML Neb Soln NEB ONE (12:27)
[2021-05-19] MEDS ORDERED: Furosemide 40 MG/4 ML VIAL IVPUSH ONE (12:59)
[2021-05-19] MEDS ORDERED: Magnesium Sulfate/Water 4 GM in Premix Bag 1 BAG IV ONE (13:38)
[2021-05-19] MEDS ORDERED: Acetaminophen 325 MG Tab PO PRN (17:19)
[2021-05-19] MEDS ORDERED: Ondansetron 4 MG/2 ML SDV IV PRN (17:19)
[2021-05-19] MEDS ORDERED: Ondansetron 4 MG Tab.DIS PO PRN (17:19)
[2021-05-19] MEDS ORDERED: Heparin Sodium 5,000 Units/ML Vial SUBCUT SCH (17:30)
--- NOTE | 2021-05-19 17:32 | PCM.HP.2 ---
H&P History of Present Illness - General Date of Service: 05/19/21 Admit Problem/Dx: Admission Diagnosis/Problem Admission Diagnosis/Problem CHF, Congestive heart failure Source of Information: Patient, Provider History Limitations: Reports: No Limitations - History of Present Illness Initial Comments - Free Text/Narative: Patient is a 65-year-old female with a past medical history as listed below who presents to the emergency department with a chief complaint of cough and difficulties breathing. Patient states that she was in her usual state of health up until about 3 or 4 days ago when she started to experience a rather nagging cough. She has not had any sputum production. No recent sick contacts that she knows of. No constitutional symptoms including fever. Denies any chest pain, chest pressure or pleurisy. No nausea or vomiting. No lightheadedness or dizziness. She has been able to tolerate food. No dysuria. No skin changes. Patient states that over the past couple of days her breathing has become more labored and it is difficult to walk within the house even very short distances without becoming winded. She has not endorsed any specific troubles while sleeping. She does not believe that her feet are any more swollen than what they usually are. She states that she is excessively thirsty but she knows this is due to her diabetes. 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 They believe that her heart was worked up for either a mild heart attack or heart failure but they cannot disclose any further information. She does not remember what facility she was in. When asked about diuretics, she states that she used to be on them but has since discontinued them. She cannot describe her reasoning for discontinuing them. In the emergency department, she presented with hypoxia down to 86% on room air. This was remedied by a couple liters of oxygen via nasal cannula. Chest x-ray showing mild volume overload. She has a degree of cardiomegaly which is apparent. proBNP was high at 10,000. Troponins mildly elevated in the setting of hypoxia. Patient was ultimately referred to the internal medicine service for further management. Patient was also given Lasix to augment diuresis in the ER. - Related Data Allergies/Adverse Reactions: Allergies Allergy/AdvReac Type Severity Reaction Status Date / Time No Known Allergies Allergy Verified 05/19/21 10:36 Home Medications: Home Meds Insulin Glargine,Hum.Rec.Anlog [Lantus Solostar] 35 units SQ BID 04/14/18 [ History] Aspirin [Adult Low Dose Aspirin EC] 81 mg PO DAILY 08/29/19 [History] Losartan [Cozaar] 50 mg PO DAILY 08/29/19 [History] Simvastatin [Zocor] 40 mg PO BEDTIME 08/29/19 [History] metFORMIN HCl [Metformin HCl] 1,000 mg PO BID 08/29/19 [History] Past Medical History HEENT History: Reports: Impaired Vision, Other (See Below) Other HEENT History: wears glasses Cardiovascular History: Reports: Heart Murmur, High Cholesterol, Hypertension Respiratory History: Reports: Asthma Genitourinary History: Reports: None 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: Musculoskeletal History: Reports: None Neurological History: Reports: None Psychiatric History: Reports: None Endocrine/Metabolic History: Reports: Diabetes, Type II Hematologic History: Reports: None Immunologic History: Reports: None Oncologic (Cancer) History: Reports: None Dermatologic History: Reports: None - Past Surgical History Head Surgeries/Procedures: Reports: None Cardiovascular Surgical History: Reports: None Respiratory Surgical History: Reports: None GI Surgical History: Reports: Colonoscopy Female Surgical History: Reports: Section Endocrine Surgical History: Reports: None Neurological Surgical History: Reports: None Musculoskeletal Surgical History: Reports: None Oncologic Surgical History: Reports: None Dermatological Surgical History: Reports: None Social & Family History - Tobacco Use Tobacco Use Status *Q: Never Tobacco User - Caffeine Use Caffeine Use: Reports: Coffee - Recreational Drug Use Recreational Drug Use: No H&P Review of Systems - Review of Systems: Review Of Systems: Comprehensive ROS is negative, except as noted in HPI. Exam - Exam Exam: See Below - Vital Signs Vital Signs: Last Vital Signs Temp Pulse 99 05/19/21 14:44 Resp 24 H 05/19/21 14:44 BP 137/80 05/19/21 14:44 Pulse Ox 94 L 05/19/21 14:44 Weight: 238 lb 11.2 oz - Exam Physical Exam Comments:: General: Awake and alert, in no apparent distress. Nontoxic-appearing. HEENT: Normocephalic, atraumatic. Extra ocular muscles intact. Pupils equal and reactive to light. Nares are patent. Oropharynx clear without erythema or exudate. Tongue is midline. Wearing nasal cannula oxygen. Neck: Supple without lymphadenopathy. No goiter. Trachea midline. Heart: Regular rate and rhythm. S1 and S2 heard without murmur or extrasystoles. Lungs: Decreased breath sounds at bases. Was mostly clear. No wheezing, rales, rhonchi. Abdomen: Morbidly obese. Soft, nontender, nondistended. Positive bowel sounds. No CVA tenderness. No suprapubic tenderness. Extremities: Warm and perfused. Mild pitting edema in the lower extremities. Integument: No obvious rash or jaundice. No lymphadenopathy. Neurologic: Cranial nerves II through XII grossly intact. No obvious gross motor or sensory deficits. Psychiatric: Normal mood and affect. - Patient Data Lab Results Last 24 hrs: Laboratory Results - last 24 hr 05/19/21 05/19/21 05/19/21 Range/Units 11:20 11:20 11:20 WBC 7.86 (3.98-10.04) K/mm3 RBC 4.52 (3.98-5.22) M/mm3 Hgb 12.3 (11.2-15.7) gm/dl Hct 39.3 (34.1-44.9) % MCV 86.9 (79.4-94.8) fl MCH 27.2 (25.6-32.2) pg MCHC 31.3 L (32.2-35.5) g/dl RDW Std Deviation 44.2 (36.4-46.3) fL Plt Count 157 L (182-369) K/mm3 MPV 11.8 (9.4-12.3) fl Neut % (Auto) 72.4 H (34.0-71.1) % Lymph % (Auto) 12.5 L (19.3-51.7) % Lucas % (Auto) 12.8 H (4.7-12.5) % Eos % (Auto) 1.7 (0.7-5.8) Baso % (Auto) 0.5 (0.1-1.2) % Neut # (Auto) 5.69 (1.56-6.13) K/mm3 Lymph # (Auto) 0.98 L (1.18-3.74) K/mm3 Lucas # (Auto) 1.01 H (0.24-0.36) K/mm3 Eos # (Auto) 0.13 (0.04-0.36) K/mm3 Baso # (Auto) 0.04 (0.01-0.08) K/mm3 Sodium 136 (136-145) mEq/L Potassium 3.8 (3.5-5.1) mEq/L Chloride 101 (98-107) mEq/L Carbon Dioxide 27 (21-32) mEq/L Anion Gap 11.8 (5-15) BUN 18 (7-18) mg/dL Creatinine 1.6 H (0.55-1.02) mg/dL Est Cr Clr Drug Dosing 28.61 mL/min Estimated GFR (MDRD) 32 (>60) mL/min BUN/Creatinine Ratio 11.3 L (14-18) Glucose 190 H (70-99) mg/dL Calcium 8.6 (8.5-10.1) mg/dL Magnesium 1.6 L (1.8-2.4) mg/dL Total Bilirubin 0.4 (0.2-1.0) mg/dL AST 10 L (15-37) U/L ALT 13 L (14-59) U/L Alkaline Phosphatase 60 (46-116) U/L Troponin I (0.00-0.056) ng/mL C-Reactive Protein 3.0 H* (<1.0) mg/dL NT-Pro-B Natriuret Pep 44590 H (0-125) pg/mL Total Protein 6.6 (6.4-8.2) g/dl Albumin 2.5 L (3.4-5.0) g/dl Globulin 4.1 gm/dL Albumin/Globulin Ratio 0.6 L (1-2) SARS-CoV-2 RNA (DIAMOND) (NEGATIVE) 05/19/21 05/19/21 Range/Units 11:41 14:20 WBC (3.98-10.04) K/mm3 RBC (3.98-5.22) M/mm3 Hgb (11.2-15.7) gm/dl Hct (34.1-44.9) % MCV (79.4-94.8) fl MCH (25.6-32.2) pg MCHC (32.2-35.5) g/dl RDW Std Deviation (36.4-46.3) fL Plt Count (182-369) K/mm3 MPV (9.4-12.3) fl Neut % (Auto) (34.0-71.1) % Lymph % (Auto) (19.3-51.7) % Lucas % (Auto) (4.7-12.5) % Eos % (Auto) (0.7-5.8) Baso % (Auto) (0.1-1.2) % Neut # (Auto) (1.56-6.13) K/mm3 Lymph # (Auto) (1.18-3.74) K/mm3 Lucas # (Auto) (0.24-0.36) K/mm3 Eos # (Auto) (0.04-0.36) K/mm3 Baso # (Auto) (0.01-0.08) K/mm3 Sodium (136-145) mEq/L Potassium (3.5-5.1) mEq/L Chloride (98-107) mEq/L Carbon Dioxide (21-32) mEq/L Anion Gap (5-15) BUN (7-18) mg/dL Creatinine (0.55-1.02) mg/dL Est Cr Clr Drug Dosing mL/min Estimated GFR (MDRD) (>60) mL/min BUN/Creatinine Ratio (14-18) Glucose (70-99) mg/dL Calcium (8.5-10.1) mg/dL Magnesium (1.8-2.4) mg/dL Total Bilirubin (0.2-1.0) mg/dL AST (15-37) U/L ALT (14-59) U/L Alkaline Phosphatase (46-116) U/L Troponin I 0.175 H* (0.00-0.056) ng/mL C-Reactive Protein (<1.0) mg/dL NT-Pro-B Natriuret Pep (0-125) pg/mL Total Protein (6.4-8.2) g/dl Albumin (3.4-5.0) g/dl Globulin gm/dL Albumin/Globulin Ratio (1-2) SARS-CoV-2 RNA (DIAMOND) Negative (NEGATIVE) Result Diagrams: 05/19/21 11:20 05/19/21 11:20 Imaging Impressions Last 24 hrs: Chest x-ray personally reviewed. Formal reading pending. Mild CHF. Cardiomegaly. No dense infiltrates or effusions. Sepsis Event Note - Focused Exam Vital Signs: Vital Signs Pulse Resp BP Pulse Ox Pulse Ox 05/19/21 14:44 99 24 H 137/80 94 L 05/19/21 12:52 97 05/19/21 10:27 99 20 190/76 H 92 L Problem List Initiated/Reviewed/Updated: Yes Orders Last 24hrs: Active Orders 24 hr Category Date Time Status Patient Status [ADT] Routine ADT 05/19/21 17:17 Active Antiembolic Devices [RC] PER UNIT ROUTINE Care 05/19/21 17:21 Active Blood Glucose Check, Bedside [RC] QIDACANDBED Care 05/19/21 17:19 Active Height and Weight [RC] DAILY Care 05/19/21 17:19 Active Intake and Output [RC] QSHIFT Care 05/19/21 17:19 Active Oxygen Therapy [RC] PRN Care 05/19/21 17:17 Active Oxygen Therapy [RC] PRN Care 05/19/21 17:19 Active Pulse Oximetry [RC] CONTINUOUS Care 05/19/21 17:19 Active RT Aerosol Therapy [RC] ASDIRECTED Care 05/19/21 12:27 Active Up With Assistance [RC] ASDIRECTED Care 05/19/21 17:19 Active VTE/DVT Education [RC] PER UNIT ROUTINE Care 05/19/21 17:17 Active VTE/DVT Education [RC] PER UNIT ROUTINE Care 05/19/21 17:19 Active Vital Signs [RC] Q4H Care 05/19/21 17:17 Active Consult to Diabetic Nurse Specialist [CONS] Routine Cons 05/19/21 17:22 Active Consult to Oriental Rug Repairer [CONS] Routine Cons 05/19/21 17:22 Active Respiratory Care Assess and Treatment [CONS] Routine Cons 05/19/21 17:22 Active 2 Gram Sodium Diet [DIET] Diet 05/19/21 Dinner Active Consistent Carbohydrate Diet [DIET] Diet 05/19/21 Dinner Active Chest 1V Frontal [CR] Stat Exams 05/19/21 11:03 Taken Echo 2D wo Cont [US] Stat Exams 05/20/21 08:00 Ordered BASIC METABOLIC PANEL,BMP [CHEM] DAILY Lab 05/20/21 06:00 Ordered BASIC METABOLIC PANEL,BMP [CHEM] DAILY Lab 05/21/21 06:00 Ordered BASIC METABOLIC PANEL,BMP [CHEM] DAILY Lab 05/22/21 06:00 Ordered BASIC METABOLIC PANEL,BMP [CHEM] DAILY Lab 05/23/21 06:00 Ordered CBC WITH AUTO DIFF [HEME] DAILY Lab 05/20/21 06:00 Ordered CBC WITH AUTO DIFF [HEME] DAILY Lab 05/21/21 06:00 Ordered CBC WITH AUTO DIFF [HEME] DAILY Lab 05/22/21 06:00 Ordered CBC WITH AUTO DIFF [HEME] DAILY Lab 05/23/21 06:00 Ordered MAGNESIUM [CHEM] AM Lab 05/20/21 05:11 Ordered PRO B-TYPE NATRIUR PEPT,BNPPRO [CHEM] Stat Lab 05/20/21 06:00 Ordered TROPONIN I [CHEM] AM Lab 05/20/21 05:11 Ordered Acetaminophen [TylenoL] Med 05/19/21 17:19 Active 650 mg PO Q4H PRN Docusate Sodium [Colace] Med 05/19/21 17:19 Active 100 mg PO BID PRN Furosemide [Lasix] Med 05/19/21 21:00 Ordered 40 mg IVPUSH BID Heparin Sodium Med 05/19/21 17:30 Active 5,000 units SUBCUT Q8H Ondansetron [Zofran ODT] Med 05/19/21 17:19 Active 4 mg PO Q4H PRN Ondansetron [Zofran] Med 05/19/21 17:19 Active 4 mg IV Q4H PRN Sodium Chloride 0.9% [Saline Flush] Med 05/19/21 11:03 Active 10 ml FLUSH ASDIRECTED PRN Saline Lock Insert [OM.PC] Stat Oth 05/19/21 11:03 Ordered Sequential Compression Device [OM.PC] Per Unit Routine Oth 05/19/21 17:20 Ordered Resuscitation Status Routine Resus Stat 05/19/21 17:17 Ordered Medication Orders Acetaminophen (Acetaminophen 325 Mg Tab) 650 mg PO Q4H PRN PRN Reason: Pain (Mild 1-3)/fever Docusate Sodium (Docusate Sodium 100 Mg Cap) 100 mg PO BID PRN PRN Reason: Constipation Furosemide (Furosemide 40 Mg/4 Ml Vial) 40 mg IVPUSH BID RAUDEL Heparin Sodium (Porcine) (Heparin Sodium 5,000 Units/Ml Vial) 5,000 units SUBCUT Q8H RAUDEL Ondansetron HCl (Ondansetron 4 Mg Tab.Dis) 4 mg PO Q4H PRN PRN Reason: nausea, able to take PO Ondansetron HCl (Ondansetron 4 Mg/2 Ml Sdv) 4 mg IV Q4H PRN PRN Reason: Nausea/Vomiting Sodium Chloride (Sodium Chloride 0.9% 10 Ml Syringe) 10 ml FLUSH ASDIRECTED PRN PRN Reason: Keep Vein Open Last Admin: 05/19/21 14:01 Dose: 10 ml Documented by: PAIGE Assessment/Plan Comment:: 65-year-old female who presents to the emergency department with a chief complaint of cough and difficulty breathing found to be hypoxic requiring supplemental oxygen. Referred for CHF exacerbation. 1. Acute hypoxic respiratory failure. Admit to the hospitalist service for further management. Secondary to acute CHF exacerbation. Echo to establish diastolic versus systolic or perhaps both. Lasix 40 mg IV push twice daily. Fluid restriction of 2 L/day. Daily weights by standing scale only. RT consult. Bronchodilators as necessary. Wean supplemental oxygen as tolerated. Daily ambulation saturation trials. 2. Acute CHF exacerbation. Plan as above. Echocardiogram pending in the morning. 3. Type 2 diabetes mellitus. Hold metformin. Continue hospital hyperglycemia protocol. Check hemoglobin A1c. Dietitian and diabetes education. 3. Mild elevated troponin. Likely secondary to supply demand mismatch in the setting of hypoxia. Patient without chest pain. No EKG changes. Will recheck in the morning. No need for stomach anticoagulation currently. Echocardiogram pending. 4. CKD stage III nearly stage IV. Intermittent monitoring of labs. Avoid nephrotoxins. Renally dose medications if appropriate. Holding Metformin. Monitor volume status as she is requiring active diuresis. CODE STATUS: Full code. DVT prophylaxis with heparin and SCDs.
[2021-05-19] MEDS: Furosemide 40 MG/4 ML VIAL IVPUSH SCH (21:35)
[2021-05-19] MEDS: Insulin Glargine,Hum.Rec.Anlog 100 UNIT/ML 3 ML Pen SUBCUT SCH (21:36)
[2021-05-19] MEDS: Simvastatin 40 MG Tab PO SCH (21:36)
[2021-05-19] MEDS: Heparin Sodium 5,000 Units/ML Vial SUBCUT SCH (21:36)
[2021-05-19] MEDS: Insulin Lispro 100 Unit/ML 3 ML KwikPen SUBCUT SCH (21:37)
[2021-05-20] MEDS: Heparin Sodium 5,000 Units/ML Vial SUBCUT SCH ×3 (04:40→21:10)
--- NOTE | 2021-05-20 06:47 | CR ---
Chest: Frontal view of the chest was obtained. Comparison: Prior chest x-ray of 11/22/19. Heart is enlarged. Upper mediastinum is within normal limits. Pulmonary vessels are slightly increased. Lungs otherwise are clear. Bony structures appear within normal limits. Impression: 1. Cardiomegaly. 2. Pulmonary vessels are minimally increased and difficult to exclude very early CHF. Diagnostic code #3
--- NOTE | 2021-05-20 07:35 | PCM.PN ---
<Panda Elliott - Last Filed: 05/20/21 11:20> - General Info Date of Service: 05/20/21 Admission Dx/Problem (Free Text): Admission Diagnosis/Problem Admission Diagnosis/Problem CHF, Congestive heart failure Functional Status: Reports: Pain Controlled, Tolerating Diet, Ambulating, Urinating. Denies: New Symptoms - Review of Systems General: Reports: No Symptoms. Denies: Fever, Weakness, Fatigue, Malaise, Chills HEENT: Reports: No Symptoms. Denies: Headaches, Sore Throat Pulmonary: Reports: Shortness of Breath, Cough, Sputum, Wheezing. Denies: Pleu ritic Chest Pain Cardiovascular: Reports: Dyspnea on Exertion, Orthopnea, Edema. Denies: Chest Pain, Palpitations Gastrointestinal: Reports: No Symptoms. Denies: Abdominal Pain, Constipation, Diarrhea, Nausea, Vomiting Genitourinary: Reports: No Symptoms. Denies: Pain Musculoskeletal: Reports: No Symptoms Skin: Reports: No Symptoms. Denies: Cyanosis Neurological: Reports: No Symptoms. Denies: Confusion, Numbness, Pre-Existing Deficit, Seizure, Syncope, Tingling, Difficulty Walking, Weakness, Gait Disturbance Psychiatric: Reports: No Symptoms - Patient Data Vitals - Most Recent: Last Vital Signs Temp 98.2 F 05/20/21 04:27 Pulse 79 05/20/21 04:27 Resp 22 H 05/20/21 04:27 BP 127/50 L 05/20/21 04:27 Pulse Ox 91 L 05/20/21 05:51 Weight - Most Recent: 234 lb 1.6 oz I&O - Last 24 Hours: Intake & Output 05/19/21 05/20/21 05/20/21 22:59 06:59 14:59 Intake Total 0 400 Output Total 0 400 Balance 0 0 Lab Results Last 24 Hours: Laboratory Results - last 24 hr 05/19/21 05/19/21 05/19/21 Range/Units 11:20 11:20 11:20 WBC 7.86 (3.98-10.04) K/mm3 RBC 4.52 (3.98-5.22) M/mm3 Hgb 12.3 (11.2-15.7) gm/dl Hct 39.3 (34.1-44.9) % MCV 86.9 (79.4-94.8) fl MCH 27.2 (25.6-32.2) pg MCHC 31.3 L (32.2-35.5) g/dl RDW Std Deviation 44.2 (36.4-46.3) fL Plt Count 157 L (182-369) K/mm3 MPV 11.8 (9.4-12.3) fl Neut % (Auto) 72.4 H (34.0-71.1) % Lymph % (Auto) 12.5 L (19.3-51.7) % [place] % (Auto) 12.8 H (4.7-12.5) % Eos % (Auto) 1.7 (0.7-5.8) Baso % (Auto) 0.5 (0.1-1.2) % Neut # (Auto) 5.69 (1.56-6.13) K/mm3 Lymph # (Auto) 0.98 L (1.18-3.74) K/mm3 [place] # (Auto) 1.01 H (0.24-0.36) K/mm3 Eos # (Auto) 0.13 (0.04-0.36) K/mm3 Baso # (Auto) 0.04 (0.01-0.08) K/mm3 Sodium 136 (136-145) mEq/L Potassium 3.8 (3.5-5.1) mEq/L Chloride 101 (98-107) mEq/L Carbon Dioxide 27 (21-32) mEq/L Anion Gap 11.8 (5-15) BUN 18 (7-18) mg/dL Creatinine 1.6 H (0.55-1.02) mg/dL Est Cr Clr Drug Dosing 28.61 mL/min Estimated GFR (MDRD) 32 (>60) mL/min BUN/Creatinine Ratio 11.3 L (14-18) Glucose 190 H (70-99) mg/dL POC Glucose (70-99) mg/dL Calcium 8.6 (8.5-10.1) mg/dL Magnesium 1.6 L (1.8-2.4) mg/dL Total Bilirubin 0.4 (0.2-1.0) mg/dL AST 10 L (15-37) U/L ALT 13 L (14-59) U/L Alkaline Phosphatase 60 (46-116) U/L Troponin I (0.00-0.056) ng/mL C-Reactive Protein 3.0 H* (<1.0) mg/dL NT-Pro-B Natriuret Pep 79447 H (0-125) pg/mL Total Protein 6.6 (6.4-8.2) g/dl Albumin 2.5 L (3.4-5.0) g/dl Globulin 4.1 gm/dL Albumin/Globulin Ratio 0.6 L (1-2) SARS-CoV-2 RNA (DIAMOND) (NEGATIVE) 05/19/21 05/19/21 05/19/21 Range/Units 11:41 14:20 21:26 WBC (3.98-10.04) K/mm3 RBC (3.98-5.22) M/mm3 Hgb (11.2-15.7) gm/dl Hct (34.1-44.9) % MCV (79.4-94.8) fl MCH (25.6-32.2) pg MCHC (32.2-35.5) g/dl RDW Std Deviation (36.4-46.3) fL Plt Count (182-369) K/mm3 MPV (9.4-12.3) fl Neut % (Auto) (34.0-71.1) % Lymph % (Auto) (19.3-51.7) % [place] % (Auto) (4.7-12.5) % Eos % (Auto) (0.7-5.8) Baso % (Auto) (0.1-1.2) % Neut # (Auto) (1.56-6.13) K/mm3 Lymph # (Auto) (1.18-3.74) K/mm3 [place] # (Auto) (0.24-0.36) K/mm3 Eos # (Auto) (0.04-0.36) K/mm3 Baso # (Auto) (0.01-0.08) K/mm3 Sodium (136-145) mEq/L Potassium (3.5-5.1) mEq/L Chloride (98-107) mEq/L Carbon Dioxide (21-32) mEq/L Anion Gap (5-15) BUN (7-18) mg/dL Creatinine (0.55-1.02) mg/dL Est Cr Clr Drug Dosing mL/min Estimated GFR (MDRD) (>60) mL/min BUN/Creatinine Ratio (14-18) Glucose (70-99) mg/dL POC Glucose 207 H (70-99) mg/dL Calcium (8.5-10.1) mg/dL Magnesium (1.8-2.4) mg/dL Total Bilirubin (0.2-1.0) mg/dL AST (15-37) U/L ALT (14-59) U/L Alkaline Phosphatase (46-116) U/L Troponin I 0.175 H* (0.00-0.056) ng/mL C-Reactive Protein (<1.0) mg/dL NT-Pro-B Natriuret Pep (0-125) pg/mL Total Protein (6.4-8.2) g/dl Albumin (3.4-5.0) g/dl Globulin gm/dL Albumin/Globulin Ratio (1-2) SARS-CoV-2 RNA (DIAMOND) Negative (NEGATIVE) 05/20/21 05/20/21 05/20/21 Range/Units 05:56 06:27 06:27 WBC 6.26 (3.98-10.04) K/mm3 RBC 4.46 (3.98-5.22) M/mm3 Hgb 12.0 (11.2-15.7) gm/dl Hct 38.8 (34.1-44.9) % MCV 87.0 (79.4-94.8) fl MCH 26.9 (25.6-32.2) pg MCHC 30.9 L (32.2-35.5) g/dl RDW Std Deviation 44.0 (36.4-46.3) fL Plt Count 150 L (182-369) K/mm3 MPV 12.0 (9.4-12.3) fl Neut % (Auto) 54.7 (34.0-71.1) % Lymph % (Auto) 23.6 (19.3-51.7) % [place] % (Auto) 16.5 H (4.7-12.5) % Eos % (Auto) 4.5 (0.7-5.8) Baso % (Auto) 0.5 (0.1-1.2) % Neut # (Auto) 3.43 (1.56-6.13) K/mm3 Lymph # (Auto) 1.48 (1.18-3.74) K/mm3 [place] # (Auto) 1.03 H (0.24-0.36) K/mm3 Eos # (Auto) 0.28 (0.04-0.36) K/mm3 Baso # (Auto) 0.03 (0.01-0.08) K/mm3 Sodium (136-145) mEq/L Potassium (3.5-5.1) mEq/L Chloride (98-107) mEq/L Carbon Dioxide (21-32) mEq/L Anion Gap (5-15) BUN (7-18) mg/dL Creatinine (0.55-1.02) mg/dL Est Cr Clr Drug Dosing mL/min Estimated GFR (MDRD) (>60) mL/min BUN/Creatinine Ratio (14-18) Glucose (70-99) mg/dL POC Glucose 205 H (70-99) mg/dL Calcium (8.5-10.1) mg/dL Magnesium (1.8-2.4) mg/dL Total Bilirubin (0.2-1.0) mg/dL AST (15-37) U/L ALT (14-59) U/L Alkaline Phosphatase (46-116) U/L Troponin I (0.00-0.056) ng/mL C-Reactive Protein (<1.0) mg/dL NT-Pro-B Natriuret Pep 6926 H (0-125) pg/mL Total Protein (6.4-8.2) g/dl Albumin (3.4-5.0) g/dl Globulin gm/dL Albumin/Globulin Ratio (1-2) SARS-CoV-2 RNA ([facility]OND) (NEGATIVE) Med Orders - Current: Current Medications Acetaminophen (Acetaminophen 325 Mg Tab) 650 mg PO Q4H PRN PRN Reason: Pain (Mild 1-3)/fever Aspirin (Aspirin 81 Mg Tab.Ec) 81 mg PO DAILY [facility] Docusate Sodium (Docusate Sodium 100 Mg Cap) 100 mg PO BID PRN PRN Reason: Constipation Furosemide (Furosemide 40 Mg/4 Ml Vial) 40 mg IVPUSH BID RAUDEL Last Admin: 05/19/21 21:35 Dose: 40 mg Documented by: Heparin Sodium (Porcine) (Heparin Sodium 5,000 Units/Ml Vial) 5,000 units SUBCUT Q8H [facility] Last Admin: 05/20/21 04:40 Dose: 5,000 units Documented by: Insulin Glargine (Insulin Glargine,Hum.Rec.Anlog 100 Unit/Ml 3 Ml Pen) 35 unit SUBCUT BID [facility] Last Admin: 05/19/21 21:36 Dose: 35 units Documented by: Insulin Human Lispro (Insulin Lispro 100 Unit/Ml 3 Ml Kwikpen) 0 unit SUBCUT QIDACANDBED [facility]; Protocol Last Admin: 05/19/21 21:37 Dose: 4 units Documented by: Losartan Potassium (Losartan 50 Mg Tab) 50 mg PO DAILY [facility] Ondansetron HCl (Ondansetron 4 Mg Tab.Dis) 4 mg PO Q4H PRN PRN Reason: nausea, able to take PO Ondansetron HCl (Ondansetron 4 Mg/2 Ml Sdv) 4 mg IV Q4H PRN PRN Reason: Nausea/Vomiting Simvastatin (Simvastatin 40 Mg Tab) 40 mg PO BEDTIME [facility] Last Admin: 05/19/21 21:36 Dose: 40 mg Documented by: Sodium Chloride (Sodium Chloride 0.9% 10 Ml Syringe) 10 ml FLUSH ASDIRECTED PRN PRN Reason: Keep Vein Open Last Admin: 05/19/21 14:01 Dose: 10 ml Documented by: Discontinued Medications Albuterol (Albuterol 0.083% 2.5 Mg/3 Ml Neb Soln) 2.5 mg NEB ONETIME ONE Stop: 05/19/21 12:28 Last Admin: 05/19/21 12:52 Dose: 2.5 mg Documented by: Furosemide (Furosemide 40 Mg/4 Ml Vial) 40 mg IVPUSH NOW ONE Stop: 05/19/21 13:00 Last Admin: 05/19/21 14:01 Dose: 40 mg Documented by: Heparin Sodium (Porcine) (Heparin Sodium 5,000 Units/Ml Vial) 5,000 units SUBCUT Q8H [facility] Last Admin: 05/19/21 22:11 Dose: Not Given Documented by: Magnesium Sulfate 4 gm/ Premix 50 mls @ 12.5 mls/hr IV ONETIME ONE Stop: 05/19/21 17:37 Last Admin: 05/19/21 14:42 Dose: 12.5 mls/hr Documented by: - Exam Quality Assessment: Supplemental Oxygen (2L), DVT Prophylaxis. No: Urine Catheter General: Alert, Oriented, Cooperative, No Acute Distress HEENT: Pupils Equal, Pupils Reactive, Mucous Membr. Moist/[place] Neck: Supple, Trachea Midline Lungs: Normal Respiratory Effort, Decreased Breath Sounds, Wheezing. No: Crackles, Rhonchi Cardiovascular: Regular Rate, Regular Rhythm GI/Abdominal Exam: Normal Bowel Sounds, Soft, Non-Tender, No Distention (Female) Exam: Deferred Back Exam: Normal Inspection, Full Range of Motion Extremities: Normal Inspection, Normal Range of Motion, Non-Tender, Normal Capillary Refill, Pedal Edema (trace) Skin: Warm, Dry, Intact Neurological: No New Focal Deficit Psy/Mental Status: Alert, Normal Affect, Normal Mood - Patient Data Lab Results Last 24 hrs: Laboratory Results - last 24 hr 05/19/21 05/19/21 05/19/21 Range/Units 11:20 11:20 11:20 WBC 7.86 (3.98-10.04) K/mm3 RBC 4.52 (3.98-5.22) M/mm3 Hgb 12.3 (11.2-15.7) gm/dl Hct 39.3 (34.1-44.9) % MCV 86.9 (79.4-94.8) fl MCH 27.2 (25.6-32.2) pg MCHC 31.3 L (32.2-35.5) g/dl RDW Std Deviation 44.2 (36.4-46.3) fL Plt Count 157 L (182-369) K/mm3 MPV 11.8 (9.4-12.3) fl Neut % (Auto) 72.4 H (34.0-71.1) % Lymph % (Auto) 12.5 L (19.3-51.7) % [place] % (Auto) 12.8 H (4.7-12.5) % Eos % (Auto) 1.7 (0.7-5.8) Baso % (Auto) 0.5 (0.1-1.2) % Neut # (Auto) 5.69 (1.56-6.13) K/mm3 Lymph # (Auto) 0.98 L (1.18-3.74) K/mm3 [place] # (Auto) 1.01 H (0.24-0.36) K/mm3 Eos # (Auto) 0.13 (0.04-0.36) K/mm3 Baso # (Auto) 0.04 (0.01-0.08) K/mm3 Sodium 136 (136-145) mEq/L Potassium 3.8 (3.5-5.1) mEq/L Chloride 101 (98-107) mEq/L Carbon Dioxide 27 (21-32) mEq/L Anion Gap 11.8 (5-15) BUN 18 (7-18) mg/dL Creatinine 1.6 H (0.55-1.02) mg/dL Est Cr Clr Drug Dosing 28.61 mL/min Estimated GFR (MDRD) 32 (>60) mL/min BUN/Creatinine Ratio 11.3 L (14-18) Glucose 190 H (70-99) mg/dL POC Glucose (70-99) mg/dL Calcium 8.6 (8.5-10.1) mg/dL Magnesium 1.6 L (1.8-2.4) mg/dL Total Bilirubin 0.4 (0.2-1.0) mg/dL AST 10 L (15-37) U/L ALT 13 L (14-59) U/L Alkaline Phosphatase 60 (46-116) U/L Troponin I (0.00-0.056) ng/mL C-Reactive Protein 3.0 H* (<1.0) mg/dL NT-Pro-B Natriuret Pep 80223 H (0-125) pg/mL Total Protein 6.6 (6.4-8.2) g/dl Albumin 2.5 L (3.4-5.0) g/dl Globulin 4.1 gm/dL Albumin/Globulin Ratio 0.6 L (1-2) SARS-CoV-2 RNA (DIAMOND) (NEGATIVE) 05/19/21 05/19/21 05/19/21 Range/Units 11:41 14:20 21:26 WBC (3.98-10.04) K/mm3 RBC (3.98-5.22) M/mm3 Hgb (11.2-15.7) gm/dl Hct (34.1-44.9) % MCV (79.4-94.8) fl MCH (25.6-32.2) pg MCHC (32.2-35.5) g/dl RDW Std Deviation (36.4-46.3) fL Plt Count (182-369) K/mm3 MPV (9.4-12.3) fl Neut % (Auto) (34.0-71.1) % Lymph % (Auto) (19.3-51.7) % [place] % (Auto) (4.7-12.5) % Eos % (Auto) (0.7-5.8) Baso % (Auto) (0.1-1.2) % Neut # (Auto) (1.56-6.13) K/mm3 Lymph # (Auto) (1.18-3.74) K/mm3 [place] # (Auto) (0.24-0.36) K/mm3 Eos # (Auto) (0.04-0.36) K/mm3 Baso # (Auto) (0.01-0.08) K/mm3 Sodium (136-145) mEq/L Potassium (3.5-5.1) mEq/L Chloride (98-107) mEq/L Carbon Dioxide (21-32) mEq/L Anion Gap (5-15) BUN (7-18) mg/dL Creatinine (0.55-1.02) mg/dL Est Cr Clr Drug Dosing mL/min Estimated GFR (MDRD) (>60) mL/min BUN/Creatinine Ratio (14-18) Glucose (70-99) mg/dL POC Glucose 207 H (70-99) mg/dL Calcium (8.5-10.1) mg/dL Magnesium (1.8-2.4) mg/dL Total Bilirubin (0.2-1.0) mg/dL AST (15-37) U/L ALT (14-59) U/L Alkaline Phosphatase (46-116) U/L Troponin I 0.175 H* (0.00-0.056) ng/mL C-Reactive Protein (<1.0) mg/dL NT-Pro-B Natriuret Pep (0-125) pg/mL Total Protein (6.4-8.2) g/dl Albumin (3.4-5.0) g/dl Globulin gm/dL Albumin/Globulin Ratio (1-2) SARS-CoV-2 RNA (DIAMOND) Negative (NEGATIVE) 05/20/21 05/20/21 05/20/21 Range/Units 05:56 06:27 06:27 WBC 6.26 (3.98-10.04) K/mm3 RBC 4.46 (3.98-5.22) M/mm3 Hgb 12.0 (11.2-15.7) gm/dl Hct 38.8 (34.1-44.9) % MCV 87.0 (79.4-94.8) fl MCH 26.9 (25.6-32.2) pg MCHC 30.9 L (32.2-35.5) g/dl RDW Std Deviation 44.0 (36.4-46.3) fL Plt Count 150 L (182-369) K/mm3 MPV 12.0 (9.4-12.3) fl Neut % (Auto) 54.7 (34.0-71.1) % Lymph % (Auto) 23.6 (19.3-51.7) % [place] % (Auto) 16.5 H (4.7-12.5) % Eos % (Auto) 4.5 (0.7-5.8) Baso % (Auto) 0.5 (0.1-1.2) % Neut # (Auto) 3.43 (1.56-6.13) K/mm3 Lymph # (Auto) 1.48 (1.18-3.74) K/mm3 [place] # (Auto) 1.03 H (0.24-0.36) K/mm3 Eos # (Auto) 0.28 (0.04-0.36) K/mm3 Baso # (Auto) 0.03 (0.01-0.08) K/mm3 Sodium (136-145) mEq/L Potassium (3.5-5.1) mEq/L Chloride (98-107) mEq/L Carbon Dioxide (21-32) mEq/L Anion Gap (5-15) BUN (7-18) mg/dL Creatinine (0.55-1.02) mg/dL Est Cr Clr Drug Dosing mL/min Estimated GFR (MDRD) (>60) mL/min BUN/Creatinine Ratio (14-18) Glucose (70-99) mg/dL POC Glucose 205 H (70-99) mg/dL Calcium (8.5-10.1) mg/dL Magnesium (1.8-2.4) mg/dL Total Bilirubin (0.2-1.0) mg/dL AST (15-37) U/L ALT (14-59) U/L Alkaline Phosphatase (46-116) U/L Troponin I (0.00-0.056) ng/mL C-Reactive Protein (<1.0) mg/dL NT-Pro-B Natriuret Pep 6926 H (0-125) pg/mL Total Protein (6.4-8.2) g/dl Albumin (3.4-5.0) g/dl Globulin gm/dL Albumin/Globulin Ratio (1-2) SARS-CoV-2 RNA (DIAMOND) (NEGATIVE) Result Diagrams: 05/20/21 06:27 05/20/21 06:27 Sepsis Event Note - Evaluation Sepsis Screening Result: No Definite Risk - Focused Exam Vital Signs: Vital Signs Temp Pulse Resp BP Pulse Ox Pulse Ox 05/20/21 05:51 91 L 05/20/21 04:27 98.2 F 79 22 H 127/50 L 90 L 05/19/21 23:55 99.3 F 81 24 H 130/69 92 L - Problem List & Annotations (1) Acute hypoxemic respiratory failure SNOMED Code(s): 740230161 Code(s): J96.01 - ACUTE RESPIRATORY FAILURE WITH HYPOXIA Status: Acute Priority: High Current Visit: Yes (2) Suspected CHF (congestive heart failure) SNOMED Code(s): 191804593, 796552279 Code(s): R09.89 - OTH SYMPTOMS AND SIGNS INVOLVING THE CIRC AND RESP SYSTEMS Status: Acute Priority: High Current Visit: Yes (3) CKD (chronic kidney disease) stage 3, GFR 30-59 ml/min SNOMED Code(s): 243892273 Code(s): N18.30 - CHRONIC KIDNEY DISEASE, STAGE 3 UNSPECIFIED Status: C hronic Priority: High Current Visit: Yes Qualifiers: Chronic kidney disease stage 3 subtype: stage 3b (GFR 30-44) Qualified Code(s): N18.32 - Chronic kidney disease, stage 3b (4) INDIRA (acute kidney injury) SNOMED Code(s): 65957276, 83123646 Code(s): N17.9 - ACUTE KIDNEY FAILURE, UNSPECIFIED Status: Acute Priority: High Current Visit: Yes (5) Elevated troponin SNOMED Code(s): 229007805, 945304465, 513628339 Code(s): R77.8 - OTHER SPECIFIED ABNORMALITIES OF PLASMA PROTEINS Status: Acute Priority: Medium Current Visit: Yes (6) Type II diabetes mellitus SNOMED Code(s): 24110784 Code(s): E11.9 - TYPE 2 DIABETES MELLITUS WITHOUT COMPLICATIONS Status: Chronic Priority: High Current Visit: Yes Qualifiers: Diabetes mellitus exterminator helper termite insulin use: with exterminator helper termite use Diabetes mellitus complication status: with other specified complication Qualified Code(s): E11.69 - Type 2 diabetes mellitus with other specified complication; Z79.4 - group home (current) use of insulin (7) Obesity SNOMED Code(s): 936086436, 462955455 Code(s): E66.9 - OBESITY, UNSPECIFIED Status: Chronic Priority: Medium Current Visit: Yes Qualifiers: Obesity type: unspecified obesity type Obesity classification: adult class 3 (BMI >= 40) Serious obesity comorbidity presence: with serious comorbidity Body mass index: BMI 40.0-44.9 Qualified Code(s): E66.01 - Morbid (severe) obesity due to excess calories; Z68.41 - Body mass index [BMI] 40.0-44.9, adult - Problem List Review Problem List Initiated/Reviewed/Updated: Yes - Assessment Assessment:: 05/20/2021 This is a 65-year-old female who was admitted to the floor for concerns over new onset CHF. Patient is requiring 3 L of oxygen currently but states she does not feel too short of breath with this. She is currently receiving 40 mg IV push daily Lasix and has not had too much output with this. We will therefore increase her to 60 mg twice daily IV push with diuretic scheduling. Will monitor I's and O's and daily weights. She does report a history of asthma and so we will add in as needed albuterol MDI and DuoNeb's. RT is consulted and working on weaning patient. Echocardiogram was obtained today and is pending. A1c was 7.9 and we will continue to hold her Metformin and prescribe long-acting insulin per her home dosing and also sliding scale insulin as needed. Troponin has improved from admission to 0.162. This is likely secondary to demand ischemia. BUN is increased to 25 and creatinine is 1.9. GFR is 26. Glucose has been between 202 and 207. Magnesium is 2.2. proBNP on recheck was 6926. We will hold the patient's Cozaar and continue to diurese. Will address plan pending on renal stability and output. Length of stay likely 2-3 more days. - Plan Plan:: 65-year-old female who presents to the emergency department with a chief complaint of cough and difficulty breathing found to be hypoxic requiring supplemental oxygen. Referred for CHF exacerbation. 1. Acute hypoxic respiratory failure. Admit to the hospitalist service on telemetry for further management. Secondary to acute CHF exacerbation. Echo to establish diastolic versus systolic or perhaps both. Increase lasix to 60mg with BIDDiuretic dosing. Fluid restriction of 2 L/day. Daily weights by standing scale only. RT consult. Bronchodilators as necessary. Wean supplemental oxygen as tolerated. Daily ambulation saturation trials. Monitor I&O Q4Hr 2. Acute CHF exacerbation. Plan as above. Echocardiogram pending. 3. Type 2 diabetes mellitus. Hold metformin. Continue hospital hyperglycemia protocol. Check hemoglobin A1c - 7.9 Dietitian and diabetes education consultation. 3. Mild elevated troponin, improving Likely secondary to supply demand mismatch in the setting of hypoxia. Patient without chest pain. No EKG changes. No need for full strength anticoagulation currently. Echocardiogram pending. 4. CKD stage III nearly stage IV. Intermittent monitoring of labs. Avoid nephrotoxins. Renally dose medications if appropriate. Holding Metformin and Cozaar. Monitor volume status as she is requiring active diuresis. CODE STATUS: Full code. DVT prophylaxis with heparin and SCDs. PCP: Ana María Gibbs PA-C <Horace Vega Jr - Last Filed: 05/20/21 20:13> - Patient Data Vitals - Most Recent: Last Vital Signs Temp 99.0 F 05/20/21 15:25 Pulse 74 05/20/21 15:25 Resp 20 05/20/21 15:23 BP 115/70 05/20/21 15:23 Pulse Ox 93 L 05/20/21 15:25 I&O - Last 24 Hours: Intake & Output 05/20/21 05/20/21 05/20/21 06:59 14:59 22:59 Intake Total 400 240 760 Output Total 400 0 700 Balance 0 240 60 Lab Results Last 24 Hours: Laboratory Results - last 24 hr 05/19/21 05/20/21 05/20/21 Range/Units 21:26 05:56 06:27 WBC (3.98-10.04) K/mm3 RBC (3.98-5.22) M/mm3 Hgb (11.2-15.7) gm/dl Hct (34.1-44.9) % MCV (79.4-94.8) fl MCH (25.6-32.2) pg MCHC (32.2-35.5) g/dl RDW Std Deviation (36.4-46.3) fL Plt Count (182-369) K/mm3 MPV (9.4-12.3) fl Neut % (Auto) (34.0-71.1) % Lymph % (Auto) (19.3-51.7) % [place] % (Auto) (4.7-12.5) % Eos % (Auto) (0.7-5.8) Baso % (Auto) (0.1-1.2) % Neut # (Auto) (1.56-6.13) K/mm3 Lymph # (Auto) (1.18-3.74) K/mm3 [place] # (Auto) (0.24-0.36) K/mm3 Eos # (Auto) (0.04-0.36) K/mm3 Baso # (Auto) (0.01-0.08) K/mm3 Sodium (136-145) mEq/L Potassium (3.5-5.1) mEq/L Chloride (98-107) mEq/L Carbon Dioxide (21-32) mEq/L Anion Gap (5-15) BUN (7-18) mg/dL Creatinine (0.55-1.02) mg/dL Est Cr Clr Drug Dosing mL/min Estimated GFR (MDRD) (>60) mL/min BUN/Creatinine Ratio (14-18) Glucose (70-99) mg/dL POC Glucose 207 H 205 H (70-99) mg/dL Hemoglobin A1c ( - 5.6) % Calcium (8.5-10.1) mg/dL Magnesium 2.2 (1.8-2.4) mg/dL Troponin I 0.162 H* (0.00-0.056) ng/mL NT-Pro-B Natriuret Pep (0-125) pg/mL 05/20/21 05/20/21 05/20/21 Range/Units 06:27 06:27 06:27 WBC 6.26 (3.98-10.04) K/mm3 RBC 4.46 (3.98-5.22) M/mm3 Hgb 12.0 (11.2-15.7) gm/dl Hct 38.8 (34.1-44.9) % MCV 87.0 (79.4-94.8) fl MCH 26.9 (25.6-32.2) pg MCHC 30.9 L (32.2-35.5) g/dl RDW Std Deviation 44.0 (36.4-46.3) fL Plt Count 150 L (182-369) K/mm3 MPV 12.0 (9.4-12.3) fl Neut % (Auto) 54.7 (34.0-71.1) % Lymph % (Auto) 23.6 (19.3-51.7) % [place] % (Auto) 16.5 H (4.7-12.5) % Eos % (Auto) 4.5 (0.7-5.8) Baso % (Auto) 0.5 (0.1-1.2) % Neut # (Auto) 3.43 (1.56-6.13) K/mm3 Lymph # (Auto) 1.48 (1.18-3.74) K/mm3 [place] # (Auto) 1.03 H (0.24-0.36) K/mm3 Eos # (Auto) 0.28 (0.04-0.36) K/mm3 Baso # (Auto) 0.03 (0.01-0.08) K/mm3 Sodium 137 (136-145) mEq/L Potassium 4.0 (3.5-5.1) mEq/L Chloride 99 (98-107) mEq/L Carbon Dioxide 26 (21-32) mEq/L Anion Gap 16.0 H (5-15) BUN 25 H (7-18) mg/dL Creatinine 1.9 H (0.55-1.02) mg/dL Est Cr Clr Drug Dosing 24.09 mL/min Estimated GFR (MDRD) 26 (>60) mL/min BUN/Creatinine Ratio 13.2 L (14-18) Glucose 202 H (70-99) mg/dL POC Glucose (70-99) mg/dL Hemoglobin A1c ( - 5.6) % Calcium 8.1 L (8.5-10.1) mg/dL Magnesium (1.8-2.4) mg/dL Troponin I (0.00-0.056) ng/mL NT-Pro-B Natriuret Pep 6926 H (0-125) pg/mL 05/20/21 05/20/21 05/20/21 Range/Units 06:27 11:27 16:32 WBC (3.98-10.04) K/mm3 RBC (3.98-5.22) M/mm3 Hgb (11.2-15.7) gm/dl Hct (34.1-44.9) % MCV (79.4-94.8) fl MCH (25.6-32.2) pg MCHC (32.2-35.5) g/dl RDW Std Deviation (36.4-46.3) fL Plt Count (182-369) K/mm3 MPV (9.4-12.3) fl Neut % (Auto) (34.0-71.1) % Lymph % (Auto) (19.3-51.7) % [place] % (Auto) (4.7-12.5) % Eos % (Auto) (0.7-5.8) Baso % (Auto) (0.1-1.2) % Neut # (Auto) (1.56-6.13) K/mm3 Lymph # (Auto) (1.18-3.74) K/mm3 [place] # (Auto) (0.24-0.36) K/mm3 Eos # (Auto) (0.04-0.36) K/mm3 Baso # (Auto) (0.01-0.08) K/mm3 Sodium (136-145) mEq/L Potassium (3.5-5.1) mEq/L Chloride (98-107) mEq/L Carbon Dioxide (21-32) mEq/L Anion Gap (5-15) BUN (7-18) mg/dL Creatinine (0.55-1.02) mg/dL Est Cr Clr Drug Dosing mL/min Estimated GFR (MDRD) (>60) mL/min BUN/Creatinine Ratio (14-18) Glucose (70-99) mg/dL POC Glucose 192 H 152 H (70-99) mg/dL Hemoglobin A1c 7.9 H ( - 5.6) % Calcium (8.5-10.1) mg/dL Magnesium (1.8-2.4) mg/dL Troponin I (0.00-0.056) ng/mL NT-Pro-B Natriuret Pep (0-125) pg/mL Med Orders - Current: Current Medications Acetaminophen (Acetaminophen 325 Mg Tab) 650 mg PO Q4H PRN PRN Reason: Pain (Mild 1-3)/fever Albuterol (Albuterol 6.7 Gm Inhaler) 0 gm INH Q2H PRN PRN Reason: SOB/Wheezing Albuterol/Ipratropium (Albuterol/Ipratropium 3.0-0.5 Mg/3 Ml Neb Soln) 3 ml NEB QIDRT PRN PRN Reason: SOB/Wheezing Aspirin (Aspirin 81 Mg Tab.Ec) 81 mg PO DAILY [facility] Last Admin: 05/20/21 08:33 Dose: 81 mg Documented by: Docusate Sodium (Docusate Sodium 100 Mg Cap) 100 mg PO BID PRN PRN Reason: Constipation Furosemide (Furosemide 40 Mg/4 Ml Vial) 60 mg IVPUSH BIDDIURETIC [facility] Last Admin: 05/20/21 13:38 Dose: 60 mg Documented by: Heparin Sodium (Porcine) (Heparin Sodium 5,000 Units/Ml Vial) 5,000 units SUBCUT Q8H [facility] Last Admin: 05/20/21 12:07 Dose: 5,000 units Documented by: Insulin Glargine (Insulin Glargine,Hum.Rec.Anlog 100 Unit/Ml 3 Ml Pen) 10 unit SUBCUT DAILY [facility] Insulin Human Lispro (Insulin Lispro 100 Unit/Ml 3 Ml Kwikpen) 0 unit SUBCUT QIDACANDBED [facility]; Protocol Last Admin: 05/20/21 18:02 Dose: 2 units Documented by: Ondansetron HCl (Ondansetron 4 Mg Tab.Dis) 4 mg PO Q4H PRN PRN Reason: nausea, able to take PO Ondansetron HCl (Ondansetron 4 Mg/2 Ml Sdv) 4 mg IV Q4H PRN PRN Reason: Nausea/Vomiting Simvastatin (Simvastatin 40 Mg Tab) 40 mg PO BEDTIME [facility] Last Admin: 05/19/21 21:36 Dose: 40 mg Documented by: Sodium Chloride (Sodium Chloride 0.9% 10 Ml Syringe) 10 ml FLUSH ASDIRECTED PRN PRN Reason: Keep Vein Open Last Admin: 05/19/21 14:01 Dose: 10 ml Documented by: Discontinued Medications Albuterol (Albuterol 0.083% 2.5 Mg/3 Ml Neb Soln) 2.5 mg NEB ONETIME ONE Stop: 05/19/21 12:28 Last Admin: 05/19/21 12:52 Dose: 2.5 mg Documented by: Furosemide (Furosemide 40 Mg/4 Ml Vial) 40 mg IVPUSH NOW ONE Stop: 05/19/21 13:00 Last Admin: 05/19/21 14:01 Dose: 40 mg Documented by: Furosemide (Furosemide 40 Mg/4 Ml Vial) 40 mg IVPUSH BID [facility] Last Admin: 05/20/21 08:33 Dose: 40 mg Documented by: Heparin Sodium (Porcine) (Heparin Sodium 5,000 Units/Ml Vial) 5,000 units SUBCUT Q8H [facility] Last Admin: 05/19/21 22:11 Dose: Not Given Documented by: Magnesium Sulfate 4 gm/ Premix 50 mls @ 12.5 mls/hr IV ONETIME ONE Stop: 05/19/21 17:37 Last Admin: 05/19/21 14:42 Dose: 12.5 mls/hr Documented by: Insulin Glargine (Insulin Glargine,Hum.Rec.Anlog 100 Unit/Ml 3 Ml Pen) 35 unit SUBCUT BID [facility] Last Admin: 05/20/21 09:30 Dose: Not Given Documented by: Insulin Glargine (Insulin Glargine,Hum.Rec.Anlog 100 Unit/Ml 3 Ml Pen) 10 unit SUBCUT ONETIME ONE Stop: 05/20/21 13:31 Last Admin: 05/20/21 13:37 Dose: 10 units Documented by: Losartan Potassium (Losartan 50 Mg Tab) 50 mg PO DAILY [facility] Last Admin: 05/20/21 08:33 Dose: 50 mg Documented by: - Patient Data Lab Results Last 24 hrs: Laboratory Results - last 24 hr 05/19/21 05/20/21 05/20/21 Range/Units 21:26 05:56 06:27 WBC (3.98-10.04) K/mm3 RBC (3.98-5.22) M/mm3 Hgb (11.2-15.7) gm/dl Hct (34.1-44.9) % MCV (79.4-94.8) fl MCH (25.6-32.2) pg MCHC (32.2-35.5) g/dl RDW Std Deviation (36.4-46.3) fL Plt Count (182-369) K/mm3 MPV (9.4-12.3) fl Neut % (Auto) (34.0-71.1) % Lymph % (Auto) (19.3-51.7) % [place] % (Auto) (4.7-12.5) % Eos % (Auto) (0.7-5.8) Baso % (Auto) (0.1-1.2) % Neut # (Auto) (1.56-6.13) K/mm3 Lymph # (Auto) (1.18-3.74) K/mm3 [place] # (Auto) (0.24-0.36) K/mm3 Eos # (Auto) (0.04-0.36) K/mm3 Baso # (Auto) (0.01-0.08) K/mm3 Sodium (136-145) mEq/L Potassium (3.5-5.1) mEq/L Chloride (98-107) mEq/L Carbon Dioxide (21-32) mEq/L Anion Gap (5-15) BUN (7-18) mg/dL Creatinine (0.55-1.02) mg/dL Est Cr Clr Drug Dosing mL/min Estimated GFR (MDRD) (>60) mL/min BUN/Creatinine Ratio (14-18) Glucose (70-99) mg/dL POC Glucose 207 H 205 H (70-99) mg/dL Hemoglobin A1c ( - 5.6) % Calcium (8.5-10.1) mg/dL Magnesium 2.2 (1.8-2.4) mg/dL Troponin I 0.162 H* (0.00-0.056) ng/mL NT-Pro-B Natriuret Pep (0-125) pg/mL 05/20/21 05/20/21 05/20/21 Range/Units 06:27 06:27 06:27 WBC 6.26 (3.98-10.04) K/mm3 RBC 4.46 (3.98-5.22) M/mm3 Hgb 12.0 (11.2-15.7) gm/dl Hct 38.8 (34.1-44.9) % MCV 87.0 (79.4-94.8) fl MCH 26.9 (25.6-32.2) pg MCHC 30.9 L (32.2-35.5) g/dl RDW Std Deviation 44.0 (36.4-46.3) fL Plt Count 150 L (182-369) K/mm3 MPV 12.0 (9.4-12.3) fl Neut % (Auto) 54.7 (34.0-71.1) % Lymph % (Auto) 23.6 (19.3-51.7) % [place] % (Auto) 16.5 H (4.7-12.5) % Eos % (Auto) 4.5 (0.7-5.8) Baso % (Auto) 0.5 (0.1-1.2) % Neut # (Auto) 3.43 (1.56-6.13) K/mm3 Lymph # (Auto) 1.48 (1.18-3.74) K/mm3 [place] # (Auto) 1.03 H (0.24-0.36) K/mm3 Eos # (Auto) 0.28 (0.04-0.36) K/mm3 Baso # (Auto) 0.03 (0.01-0.08) K/mm3 Sodium 137 (136-145) mEq/L Potassium 4.0 (3.5-5.1) mEq/L Chloride 99 (98-107) mEq/L Carbon Dioxide 26 (21-32) mEq/L Anion Gap 16.0 H (5-15) BUN 25 H (7-18) mg/dL Creatinine 1.9 H (0.55-1.02) mg/dL Est Cr Clr Drug Dosing 24.09 mL/min Estimated GFR (MDRD) 26 (>60) mL/min BUN/Creatinine Ratio 13.2 L (14-18) Glucose 202 H (70-99) mg/dL POC Glucose (70-99) mg/dL Hemoglobin A1c ( - 5.6) % Calcium 8.1 L (8.5-10.1) mg/dL Magnesium (1.8-2.4) mg/dL Troponin I (0.00-0.056) ng/mL NT-Pro-B Natriuret Pep 6926 H (0-125) pg/mL 05/20/21 05/20/21 05/20/21 Range/Units 06:27 11:27 16:32 WBC (3.98-10.04) K/mm3 RBC (3.98-5.22) M/mm3 Hgb (11.2-15.7) gm/dl Hct (34.1-44.9) % MCV (79.4-94.8) fl MCH (25.6-32.2) pg MCHC (32.2-35.5) g/dl RDW Std Deviation (36.4-46.3) fL Plt Count (182-369) K/mm3 MPV (9.4-12.3) fl Neut % (Auto) (34.0-71.1) % Lymph % (Auto) (19.3-51.7) % [place] % (Auto) (4.7-12.5) % Eos % (Auto) (0.7-5.8) Baso % (Auto) (0.1-1.2) % Neut # (Auto) (1.56-6.13) K/mm3 Lymph # (Auto) (1.18-3.74) K/mm3 [place] # (Auto) (0.24-0.36) K/mm3 Eos # (Auto) (0.04-0.36) K/mm3 Baso # (Auto) (0.01-0.08) K/mm3 Sodium (136-145) mEq/L Potassium (3.5-5.1) mEq/L Chloride (98-107) mEq/L Carbon Dioxide (21-32) mEq/L Anion Gap (5-15) BUN (7-18) mg/dL Creatinine (0.55-1.02) mg/dL Est Cr Clr Drug Dosing mL/min Estimated GFR (MDRD) (>60) mL/min BUN/Creatinine Ratio (14-18) Glucose (70-99) mg/dL POC Glucose 192 H 152 H (70-99) mg/dL Hemoglobin A1c 7.9 H ( - 5.6) % Calcium (8.5-10.1) mg/dL Magnesium (1.8-2.4) mg/dL Troponin I (0.00-0.056) ng/mL NT-Pro-B Natriuret Pep (0-125) pg/mL Result Diagrams: 05/20/21 06:27 05/20/21 06:27 Sepsis Event Note - Focused Exam Vital Signs: Vital Signs Temp Pulse Resp BP Pulse Ox Pulse Ox 05/20/21 15:25 99.0 F 74 93 L 05/20/21 15:23 72 20 115/70 94 L 05/20/21 11:00 92 L 05/20/21 08:33 130/95 H 05/20/21 08:30 97.9 F 73 20 130/95 H 92 L - My Orders Last 24 Hours: My Active Orders 05/19/21 21:00 Heparin Sodium 5,000 units SUBCUT Q8H Simvastatin [Zocor] 40 mg PO BEDTIME 05/19/21 22:00 Insulin Lispro [HumaLOG] See Protocol SUBCUT QIDACANDBED 05/20/21 Breakfast Fluid Restriction [DIET] 05/20/21 09:00 Aspirin [Halfprin] 81 mg PO DAILY 05/21/21 06:00 BASIC METABOLIC PANEL,BMP [CHEM] DAILY CBC WITH AUTO DIFF [HEME] DAILY 05/22/21 06:00 BASIC METABOLIC PANEL,BMP [CHEM] DAILY CBC WITH AUTO DIFF [HEME] DAILY 05/23/21 06:00 BASIC METABOLIC PANEL,BMP [CHEM] DAILY CBC WITH AUTO DIFF [HEME] DAILY - Plan Plan:: Case discussed in full. Agree with evaluation, assessment and plan.
[2021-05-20] MEDS: Furosemide 40 MG/4 ML VIAL IVPUSH SCH ×2 (08:33→13:38)
[2021-05-20] MEDS: Aspirin 81 MG Tab.EC PO SCH (08:33)
[2021-05-20] MEDS: Insulin Lispro 100 Unit/ML 3 ML KwikPen SUBCUT SCH ×4 (08:34→22:06)
[2021-05-20] MEDS ORDERED: Losartan 50 MG Tab PO SCH (09:00)
[2021-05-20 09:26] LABS: HEMOGLOBIN A1C 7.9 %
[2021-05-20] MEDS: Insulin Glargine,Hum.Rec.Anlog 100 UNIT/ML 3 ML Pen SUBCUT SCH (09:30)
[2021-05-20] MEDS ORDERED: Albuterol 6.7 GM Inhaler INH PRN (10:30)
[2021-05-20] MEDS ORDERED: Insulin Glargine,Hum.Rec.Anlog 100 UNIT/ML 3 ML Pen SUBCUT ONE (13:30)
[2021-05-20] MEDS: Simvastatin 40 MG Tab PO SCH (21:10)
[2021-05-21] MEDS: Heparin Sodium 5,000 Units/ML Vial SUBCUT SCH ×3 (04:32→20:05)
[2021-05-21] MEDS: Furosemide 40 MG/4 ML VIAL IVPUSH SCH ×2 (06:47→14:54)
[2021-05-21] MEDS ORDERED: Magnesium Hydroxide 400 MG/5 ML Susp 30 ML Cup PO ONE (06:51)
--- NOTE | 2021-05-21 07:18 | PCM.PN ---
<Panda Elliott - Last Filed: 05/21/21 11:00> - General Info Date of Service: 05/21/21 Admission Dx/Problem (Free Text): Admission Diagnosis/Problem Admission Diagnosis/Problem CHF, Congestive heart failure Functional Status: Reports: Pain Controlled, Tolerating Diet, Ambulating, Urinating. Denies: New Symptoms - Review of Systems General: Reports: No Symptoms. Denies: Fever, Weakness, Fatigue, Malaise, Chills HEENT: Reports: No Symptoms. Denies: Headaches, Sore Throat Pulmonary: Reports: Shortness of Breath, Cough, Sputum, Wheezing. Denies: Pleu ritic Chest Pain, Hemoptysis Cardiovascular: Reports: Dyspnea on Exertion, Orthopnea, Edema (mild). Denies: Chest Pain, Palpitations Gastrointestinal: Reports: No Symptoms. Denies: Abdominal Pain, Constipation, Diarrhea, Nausea Genitourinary: Reports: No Symptoms. Denies: Pain Musculoskeletal: Reports: No Symptoms Skin: Reports: No Symptoms. Denies: Cyanosis Neurological: Reports: No Symptoms. Denies: Confusion, Numbness, Tingling, Difficulty Walking, Weakness, Gait Disturbance Psychiatric: Reports: No Symptoms - Patient Data Vitals - Most Recent: Last Vital Signs Temp 98.2 F 05/21/21 04:05 Pulse 80 05/21/21 04:05 Resp 20 05/21/21 04:05 BP 122/58 L 05/21/21 04:05 Pulse Ox 97 05/21/21 04:05 Weight - Most Recent: 233 lb 12.8 oz I&O - Last 24 Hours: Intake & Output 05/20/21 05/21/21 05/21/21 22:59 06:59 14:59 Intake Total 760 Output Total 1000 250 Balance -240 -250 Lab Results Last 24 Hours: Laboratory Results - last 24 hr 05/20/21 05/20/21 05/20/21 Range/Units 06:27 06:27 06:27 WBC (3.98-10.04) K/mm3 RBC (3.98-5.22) M/mm3 Hgb (11.2-15.7) gm/dl Hct (34.1-44.9) % MCV (79.4-94.8) fl MCH (25.6-32.2) pg MCHC (32.2-35.5) g/dl RDW Std Deviation (36.4-46.3) fL Plt Count (182-369) K/mm3 MPV (9.4-12.3) fl Neut % (Auto) (34.0-71.1) % Lymph % (Auto) (19.3-51.7) % Moody % (Auto) (4.7-12.5) % Eos % (Auto) (0.7-5.8) Baso % (Auto) (0.1-1.2) % Neut # (Auto) (1.56-6.13) K/mm3 Lymph # (Auto) (1.18-3.74) K/mm3 Moody # (Auto) (0.24-0.36) K/mm3 Eos # (Auto) (0.04-0.36) K/mm3 Baso # (Auto) (0.01-0.08) K/mm3 Sodium 137 (136-145) mEq/L Potassium 4.0 (3.5-5.1) mEq/L Chloride 99 (98-107) mEq/L Carbon Dioxide 26 (21-32) mEq/L Anion Gap 16.0 H (5-15) BUN 25 H (7-18) mg/dL Creatinine 1.9 H (0.55-1.02) mg/dL Est Cr Clr Drug Dosing 24.09 mL/min Estimated GFR (MDRD) 26 (>60) mL/min BUN/Creatinine Ratio 13.2 L (14-18) Glucose 202 H (70-99) mg/dL POC Glucose (70-99) mg/dL Hemoglobin A1c ( - 5.6) % Calcium 8.1 L (8.5-10.1) mg/dL Magnesium 2.2 (1.8-2.4) mg/dL Troponin I 0.162 H* (0.00-0.056) ng/mL NT-Pro-B Natriuret Pep 6926 H (0-125) pg/mL 05/20/21 05/20/21 05/20/21 Range/Units 06:27 11:27 16:32 WBC (3.98-10.04) K/mm3 RBC (3.98-5.22) M/mm3 Hgb (11.2-15.7) gm/dl Hct (34.1-44.9) % MCV (79.4-94.8) fl MCH (25.6-32.2) pg MCHC (32.2-35.5) g/dl RDW Std Deviation (36.4-46.3) fL Plt Count (182-369) K/mm3 MPV (9.4-12.3) fl Neut % (Auto) (34.0-71.1) % Lymph % (Auto) (19.3-51.7) % Moody % (Auto) (4.7-12.5) % Eos % (Auto) (0.7-5.8) Baso % (Auto) (0.1-1.2) % Neut # (Auto) (1.56-6.13) K/mm3 Lymph # (Auto) (1.18-3.74) K/mm3 Moody # (Auto) (0.24-0.36) K/mm3 Eos # (Auto) (0.04-0.36) K/mm3 Baso # (Auto) (0.01-0.08) K/mm3 Sodium (136-145) mEq/L Potassium (3.5-5.1) mEq/L Chloride (98-107) mEq/L Carbon Dioxide (21-32) mEq/L Anion Gap (5-15) BUN (7-18) mg/dL Creatinine (0.55-1.02) mg/dL Est Cr Clr Drug Dosing mL/min Estimated GFR (MDRD) (>60) mL/min BUN/Creatinine Ratio (14-18) Glucose (70-99) mg/dL POC Glucose 192 H 152 H (70-99) mg/dL Hemoglobin A1c 7.9 H ( - 5.6) % Calcium (8.5-10.1) mg/dL Magnesium (1.8-2.4) mg/dL Troponin I (0.00-0.056) ng/mL NT-Pro-B Natriuret Pep (0-125) pg/mL 05/20/21 05/21/21 05/21/21 Range/Units 21:45 06:09 06:10 WBC 9.25 (3.98-10.04) K/mm3 RBC 4.46 (3.98-5.22) M/mm3 Hgb 12.0 (11.2-15.7) gm/dl Hct 39.0 (34.1-44.9) % MCV 87.4 (79.4-94.8) fl MCH 26.9 (25.6-32.2) pg MCHC 30.8 L (32.2-35.5) g/dl RDW Std Deviation 43.8 (36.4-46.3) fL Plt Count 140 L (182-369) K/mm3 MPV 12.2 (9.4-12.3) fl Neut % (Auto) 65.3 (34.0-71.1) % Lymph % (Auto) 19.9 (19.3-51.7) % Moody % (Auto) 10.2 (4.7-12.5) % Eos % (Auto) 4.3 (0.7-5.8) Baso % (Auto) 0.2 (0.1-1.2) % Neut # (Auto) 6.04 (1.56-6.13) K/mm3 Lymph # (Auto) 1.84 (1.18-3.74) K/mm3 Moody # (Auto) 0.94 H (0.24-0.36) K/mm3 Eos # (Auto) 0.40 H (0.04-0.36) K/mm3 Baso # (Auto) 0.02 (0.01-0.08) K/mm3 Sodium (136-145) mEq/L Potassium (3.5-5.1) mEq/L Chloride (98-107) mEq/L Carbon Dioxide (21-32) mEq/L Anion Gap (5-15) BUN (7-18) mg/dL Creatinine (0.55-1.02) mg/dL Est Cr Clr Drug Dosing mL/min Estimated GFR (MDRD) (>60) mL/min BUN/Creatinine Ratio (14-18) Glucose (70-99) mg/dL POC Glucose 178 H 190 H (70-99) mg/dL Hemoglobin A1c ( - 5.6) % Calcium (8.5-10.1) mg/dL Magnesium (1.8-2.4) mg/dL Troponin I (0.00-0.056) ng/mL NT-Pro-B Natriuret Pep (0-125) pg/mL 05/21/21 Range/Units 06:10 WBC (3.98-10.04) K/mm3 RBC (3.98-5.22) M/mm3 Hgb (11.2-15.7) gm/dl Hct (34.1-44.9) % MCV (79.4-94.8) fl MCH (25.6-32.2) pg MCHC (32.2-35.5) g/dl RDW Std Deviation (36.4-46.3) fL Plt Count (182-369) K/mm3 MPV (9.4-12.3) fl Neut % (Auto) (34.0-71.1) % Lymph % (Auto) (19.3-51.7) % Moody % (Auto) (4.7-12.5) % Eos % (Auto) (0.7-5.8) Baso % (Auto) (0.1-1.2) % Neut # (Auto) (1.56-6.13) K/mm3 Lymph # (Auto) (1.18-3.74) K/mm3 Moody # (Auto) (0.24-0.36) K/mm3 Eos # (Auto) (0.04-0.36) K/mm3 Baso # (Auto) (0.01-0.08) K/mm3 Sodium 140 (136-145) mEq/L Potassium 4.3 (3.5-5.1) mEq/L Chloride 103 (98-107) mEq/L Carbon Dioxide 30 (21-32) mEq/L Anion Gap 11.3 (5-15) BUN 39 H (7-18) mg/dL Creatinine 2.2 H (0.55-1.02) mg/dL Est Cr Clr Drug Dosing 20.81 mL/min Estimated GFR (MDRD) 22 (>60) mL/min BUN/Creatinine Ratio 17.7 (14-18) Glucose 222 H (70-99) mg/dL POC Glucose (70-99) mg/dL Hemoglobin A1c ( - 5.6) % Calcium 7.9 L (8.5-10.1) mg/dL Magnesium (1.8-2.4) mg/dL Troponin I (0.00-0.056) ng/mL NT-Pro-B Natriuret Pep (0-125) pg/mL Med Orders - Current: Current Medications Acetaminophen (Acetaminophen 325 Mg Tab) 650 mg PO Q4H PRN PRN Reason: Pain (Mild 1-3)/fever Albuterol (Albuterol 6.7 Gm Inhaler) 0 gm INH Q2H PRN PRN Reason: SOB/Wheezing Albuterol/Ipratropium (Albuterol/Ipratropium 3.0-0.5 Mg/3 Ml Neb Soln) 3 ml NEB QIDRT PRN PRN Reason: SOB/Wheezing Aspirin (Aspirin 81 Mg Tab.Ec) 81 mg PO DAILY [facility] Last Admin: 05/20/21 08:33 Dose: 81 mg Documented by: Docusate Sodium (Docusate Sodium 100 Mg Cap) 100 mg PO BID PRN PRN Reason: Constipation Furosemide (Furosemide 40 Mg/4 Ml Vial) 60 mg IVPUSH BIDDIURETIC [facility] Last Admin: 05/21/21 06:47 Dose: 60 mg Documented by: Heparin Sodium (Porcine) (Heparin Sodium 5,000 Units/Ml Vial) 5,000 units SUBCUT Q8H [facility] Last Admin: 05/21/21 04:32 Dose: 5,000 units Documented by: Insulin Glargine (Insulin Glargine,Hum.Rec.Anlog 100 Unit/Ml 3 Ml Pen) 10 unit SUBCUT DAILY [facility] Insulin Human Lispro (Insulin Lispro 100 Unit/Ml 3 Ml Kwikpen) 0 unit SUBCUT QIDACANDBED [facility]; Protocol Last Admin: 05/20/21 22:06 Dose: 2 units Documented by: Ondansetron HCl (Ondansetron 4 Mg Tab.Dis) 4 mg PO Q4H PRN PRN Reason: nausea, able to take PO Ondansetron HCl (Ondansetron 4 Mg/2 Ml Sdv) 4 mg IV Q4H PRN PRN Reason: Nausea/Vomiting Simvastatin (Simvastatin 40 Mg Tab) 40 mg PO BEDTIME [facility] Last Admin: 05/20/21 21:10 Dose: 40 mg Documented by: Sodium Chloride (Sodium Chloride 0.9% 10 Ml Syringe) 10 ml FLUSH ASDIRECTED PRN PRN Reason: Keep Vein Open Last Admin: 05/19/21 14:01 Dose: 10 ml Documented by: Discontinued Medications Albuterol (Albuterol 0.083% 2.5 Mg/3 Ml Neb Soln) 2.5 mg NEB ONETIME ONE Stop: 05/19/21 12:28 Last Admin: 05/19/21 12:52 Dose: 2.5 mg Documented by: Furosemide (Furosemide 40 Mg/4 Ml Vial) 40 mg IVPUSH NOW ONE Stop: 05/19/21 13:00 Last Admin: 05/19/21 14:01 Dose: 40 mg Documented by: Furosemide (Furosemide 40 Mg/4 Ml Vial) 40 mg IVPUSH BID [facility] Last Admin: 05/20/21 08:33 Dose: 40 mg Documented by: Heparin Sodium (Porcine) (Heparin Sodium 5,000 Units/Ml Vial) 5,000 units SUBCUT Q8H [facility] Last Admin: 05/19/21 22:11 Dose: Not Given Documented by: Magnesium Sulfate 4 gm/ Premix 50 mls @ 12.5 mls/hr IV ONETIME ONE Stop: 05/19/21 17:37 Last Admin: 05/19/21 14:42 Dose: 12.5 mls/hr Documented by: Insulin Glargine (Insulin Glargine,Hum.Rec.Anlog 100 Unit/Ml 3 Ml Pen) 35 unit SUBCUT BID [facility] Last Admin: 05/20/21 09:30 Dose: Not Given Documented by: Insulin Glargine (Insulin Glargine,Hum.Rec.Anlog 100 Unit/Ml 3 Ml Pen) 10 unit SUBCUT ONETIME ONE Stop: 05/20/21 13:31 Last Admin: 05/20/21 13:37 Dose: 10 units Documented by: Losartan Potassium (Losartan 50 Mg Tab) 50 mg PO DAILY [facility] Last Admin: 05/20/21 08:33 Dose: 50 mg Documented by: Magnesium Hydroxide (Magnesium Hydroxide 400 Mg/5 Ml Susp 30 Ml Cup) 30 ml PO ONETIME ONE Stop: 05/21/21 06:52 - Exam Quality Assessment: Supplemental Oxygen (3L), DVT Prophylaxis. No: Urine Catheter General: Alert, Oriented, Cooperative, No Acute Distress HEENT: Pupils Equal, Pupils Reactive, Mucous Membr. Moist/[place] Neck: Supple, Trachea Midline Lungs: Normal Respiratory Effort, Decreased Breath Sounds, Rhonchi Cardiovascular: Regular Rate, Regular Rhythm, Murmurs (Systolic ) GI/Abdominal Exam: Normal Bowel Sounds, Soft, Non-Tender, No Distention (Female) Exam: Deferred Back Exam: Normal Inspection, Full Range of Motion Extremities: Normal Inspection, Normal Range of Motion, Non-Tender, Normal Capillary Refill, Pedal Edema (trace ) Skin: Warm, Dry, Intact Neurological: No New Focal Deficit Psy/Mental Status: Alert, Normal Affect, Normal Mood - Patient Data Lab Results Last 24 hrs: Laboratory Results - last 24 hr 05/20/21 05/20/21 05/20/21 Range/Units 06:27 06:27 06:27 WBC (3.98-10.04) K/mm3 RBC (3.98-5.22) M/mm3 Hgb (11.2-15.7) gm/dl Hct (34.1-44.9) % MCV (79.4-94.8) fl MCH (25.6-32.2) pg MCHC (32.2-35.5) g/dl RDW Std Deviation (36.4-46.3) fL Plt Count (182-369) K/mm3 MPV (9.4-12.3) fl Neut % (Auto) (34.0-71.1) % Lymph % (Auto) (19.3-51.7) % Moody % (Auto) (4.7-12.5) % Eos % (Auto) (0.7-5.8) Baso % (Auto) (0.1-1.2) % Neut # (Auto) (1.56-6.13) K/mm3 Lymph # (Auto) (1.18-3.74) K/mm3 Moody # (Auto) (0.24-0.36) K/mm3 Eos # (Auto) (0.04-0.36) K/mm3 Baso # (Auto) (0.01-0.08) K/mm3 Sodium 137 (136-145) mEq/L Potassium 4.0 (3.5-5.1) mEq/L Chloride 99 (98-107) mEq/L Carbon Dioxide 26 (21-32) mEq/L Anion Gap 16.0 H (5-15) BUN 25 H (7-18) mg/dL Creatinine 1.9 H (0.55-1.02) mg/dL Est Cr Clr Drug Dosing 24.09 mL/min Estimated GFR (MDRD) 26 (>60) mL/min BUN/Creatinine Ratio 13.2 L (14-18) Glucose 202 H (70-99) mg/dL POC Glucose (70-99) mg/dL Hemoglobin A1c ( - 5.6) % Calcium 8.1 L (8.5-10.1) mg/dL Magnesium 2.2 (1.8-2.4) mg/dL Troponin I 0.162 H* (0.00-0.056) ng/mL NT-Pro-B Natriuret Pep 6926 H (0-125) pg/mL 05/20/21 05/20/21 05/20/21 Range/Units 06:27 11:27 16:32 WBC (3.98-10.04) K/mm3 RBC (3.98-5.22) M/mm3 Hgb (11.2-15.7) gm/dl Hct (34.1-44.9) % MCV (79.4-94.8) fl MCH (25.6-32.2) pg MCHC (32.2-35.5) g/dl RDW Std Deviation (36.4-46.3) fL Plt Count (182-369) K/mm3 MPV (9.4-12.3) fl Neut % (Auto) (34.0-71.1) % Lymph % (Auto) (19.3-51.7) % Moody % (Auto) (4.7-12.5) % Eos % (Auto) (0.7-5.8) Baso % (Auto) (0.1-1.2) % Neut # (Auto) (1.56-6.13) K/mm3 Lymph # (Auto) (1.18-3.74) K/mm3 Moody # (Auto) (0.24-0.36) K/mm3 Eos # (Auto) (0.04-0.36) K/mm3 Baso # (Auto) (0.01-0.08) K/mm3 Sodium (136-145) mEq/L Potassium (3.5-5.1) mEq/L Chloride (98-107) mEq/L Carbon Dioxide (21-32) mEq/L Anion Gap (5-15) BUN (7-18) mg/dL Creatinine (0.55-1.02) mg/dL Est Cr Clr Drug Dosing mL/min Estimated GFR (MDRD) (>60) mL/min BUN/Creatinine Ratio (14-18) Glucose (70-99) mg/dL POC Glucose 192 H 152 H (70-99) mg/dL Hemoglobin A1c 7.9 H ( - 5.6) % Calcium (8.5-10.1) mg/dL Magnesium (1.8-2.4) mg/dL Troponin I (0.00-0.056) ng/mL NT-Pro-B Natriuret Pep (0-125) pg/mL 05/20/21 05/21/21 05/21/21 Range/Units 21:45 06:09 06:10 WBC 9.25 (3.98-10.04) K/mm3 RBC 4.46 (3.98-5.22) M/mm3 Hgb 12.0 (11.2-15.7) gm/dl Hct 39.0 (34.1-44.9) % MCV 87.4 (79.4-94.8) fl MCH 26.9 (25.6-32.2) pg MCHC 30.8 L (32.2-35.5) g/dl RDW Std Deviation 43.8 (36.4-46.3) fL Plt Count 140 L (182-369) K/mm3 MPV 12.2 (9.4-12.3) fl Neut % (Auto) 65.3 (34.0-71.1) % Lymph % (Auto) 19.9 (19.3-51.7) % Moody % (Auto) 10.2 (4.7-12.5) % Eos % (Auto) 4.3 (0.7-5.8) Baso % (Auto) 0.2 (0.1-1.2) % Neut # (Auto) 6.04 (1.56-6.13) K/mm3 Lymph # (Auto) 1.84 (1.18-3.74) K/mm3 Moody # (Auto) 0.94 H (0.24-0.36) K/mm3 Eos # (Auto) 0.40 H (0.04-0.36) K/mm3 Baso # (Auto) 0.02 (0.01-0.08) K/mm3 Sodium (136-145) mEq/L Potassium (3.5-5.1) mEq/L Chloride (98-107) mEq/L Carbon Dioxide (21-32) mEq/L Anion Gap (5-15) BUN (7-18) mg/dL Creatinine (0.55-1.02) mg/dL Est Cr Clr Drug Dosing mL/min Estimated GFR (MDRD) (>60) mL/min BUN/Creatinine Ratio (14-18) Glucose (70-99) mg/dL POC Glucose 178 H 190 H (70-99) mg/dL Hemoglobin A1c ( - 5.6) % Calcium (8.5-10.1) mg/dL Magnesium (1.8-2.4) mg/dL Troponin I (0.00-0.056) ng/mL NT-Pro-B Natriuret Pep (0-125) pg/mL 05/21/21 Range/Units 06:10 WBC (3.98-10.04) K/mm3 RBC (3.98-5.22) M/mm3 Hgb (11.2-15.7) gm/dl Hct (34.1-44.9) % MCV (79.4-94.8) fl MCH (25.6-32.2) pg MCHC (32.2-35.5) g/dl RDW Std Deviation (36.4-46.3) fL Plt Count (182-369) K/mm3 MPV (9.4-12.3) fl Neut % (Auto) (34.0-71.1) % Lymph % (Auto) (19.3-51.7) % Moody % (Auto) (4.7-12.5) % Eos % (Auto) (0.7-5.8) Baso % (Auto) (0.1-1.2) % Neut # (Auto) (1.56-6.13) K/mm3 Lymph # (Auto) (1.18-3.74) K/mm3 Moody # (Auto) (0.24-0.36) K/mm3 Eos # (Auto) (0.04-0.36) K/mm3 Baso # (Auto) (0.01-0.08) K/mm3 Sodium 140 (136-145) mEq/L Potassium 4.3 (3.5-5.1) mEq/L Chloride 103 (98-107) mEq/L Carbon Dioxide 30 (21-32) mEq/L Anion Gap 11.3 (5-15) BUN 39 H (7-18) mg/dL Creatinine 2.2 H (0.55-1.02) mg/dL Est Cr Clr Drug Dosing 20.81 mL/min Estimated GFR (MDRD) 22 (>60) mL/min BUN/Creatinine Ratio 17.7 (14-18) Glucose 222 H (70-99) mg/dL POC Glucose (70-99) mg/dL Hemoglobin A1c ( - 5.6) % Calcium 7.9 L (8.5-10.1) mg/dL Magnesium (1.8-2.4) mg/dL Troponin I (0.00-0.056) ng/mL NT-Pro-B Natriuret Pep (0-125) pg/mL Result Diagrams: 05/21/21 06:10 05/21/21 06:10 Sepsis Event Note - Evaluation Sepsis Screening Result: No Definite Risk - Focused Exam Vital Signs: Vital Signs Temp Pulse Resp BP Pulse Ox Pulse Ox 05/21/21 04:05 98.2 F 80 20 122/58 L 97 05/21/21 01:00 88 L 88 L 05/21/21 00:00 87 L 87 L 05/20/21 21:47 90 L 05/20/21 19:28 98.8 F 71 18 115/99 H 92 L - Problem List & Annotations (1) Acute hypoxemic respiratory failure SNOMED Code(s): 699929176 Code(s): J96.01 - ACUTE RESPIRATORY FAILURE WITH HYPOXIA Status: Acute Priority: High Current Visit: Yes (2) Suspected CHF (congestive heart failure) SNOMED Code(s): 745501646, 003269743 Code(s): R09.89 - OTH SYMPTOMS AND SIGNS INVOLVING THE CIRC AND RESP SYSTEMS Status: Acute Priority: High Current Visit: Yes (3) CKD (chronic kidney disease) stage 3, GFR 30-59 ml/min SNOMED Code(s): 273816091 Code(s): N18.30 - CHRONIC KIDNEY DISEASE, STAGE 3 UNSPECIFIED Status: Chronic Priority: High Current Visit: Yes Qualifiers: Chronic kidney disease stage 3 subtype: stage 3b (GFR 30-44) Qualified Cod e(s): N18.32 - Chronic kidney disease, stage 3b (4) INDIRA (acute kidney injury) SNOMED Code(s): 84440466, 56005379 Code(s): N17.9 - ACUTE KIDNEY FAILURE, UNSPECIFIED Status: Acute Priority: High Current Visit: Yes (5) Elevated troponin SNOMED Code(s): 660510670, 004679387, 528604866 Code(s): R77.8 - OTHER SPECIFIED ABNORMALITIES OF PLASMA PROTEINS Status: Acute Priority: Medium Current Visit: Yes (6) Type II diabetes mellitus SNOMED Code(s): 14503901 Code(s): E11.9 - TYPE 2 DIABETES MELLITUS WITHOUT COMPLICATIONS Status: Chronic Priority: High Current Visit: Yes Qualifiers: Diabetes mellitus retirement insulin use: with termination clerk use Diabetes mellitus complication status: with other specified complication Qualified Code(s): E11.69 - Type 2 diabetes mellitus with other specified complication; Z79.4 - buttermaker (current) use of insulin (7) Obesity SNOMED Code(s): 694197661, 282851474 Code(s): E66.9 - OBESITY, UNSPECIFIED Status: Chronic Priority: Medium Current Visit: Yes Qualifiers: Obesity type: unspecified obesity type Obesity classification: adult class 3 (BMI >= 40) Serious obesity comorbidity presence: with serious comorbidity Body mass index: BMI 40.0-44.9 Qualified Code(s): E66.01 - Morbid (severe) obesity due to excess calories; Z68.41 - Body mass index [BMI] 40.0-44.9, adult - Problem List Review Problem List Initiated/Reviewed/Updated: Yes - My Orders Last 24 Hours: My Active Orders 05/20/21 10:30 Albuterol [Proventil HFA] See Dose Instructions INH Q2H PRN 05/20/21 10:31 RT Post Treatment Assessment [RC] Click to Edit RT Pre-Treatment Assessment [RC] Click to Edit Albuterol/Ipratropium [DuoNeb 3.0-0.5 MG/3 ML] 3 ml NEB QIDRT PRN 05/20/21 14:00 Furosemide [Lasix] 60 mg IVPUSH BIDDIURETIC 05/21/21 09:00 Insulin Glargine,Hum.Rec.Anlog [Semglee Pen] 10 unit SUBCUT DAILY - Assessment Assessment:: 05/20/2021 This is a 65-year-old female who was admitted to the floor for concerns over new onset CHF. Patient is requiring 3 L of oxygen currently but states she does not feel too short of breath with this. She is currently receiving 40 mg IV push daily Lasix and has not had too much output with this. We will therefore increase her to 60 mg twice daily IV push with diuretic scheduling. Will monitor I's and O's and daily weights. She does report a history of asthma and so we will add in as needed albuterol MDI and DuoNeb's. RT is consulted and working on weaning patient. Echocardiogram was obtained today and is pending. A1c was 7.9 and we will continue to hold her Metformin and prescribe long-acting insulin per her home dosing and also sliding scale insulin as needed. Troponin has improved from admission to 0.162. This is likely secondary to demand ischemia. BUN is increased to 25 and creatinine is 1.9. GFR is 26. Glucose has been between 202 and 207. Magnesium is 2.2. proBNP on recheck was 6926. We will hold the patient's Cozaar and continue to diurese. Will address plan pending on renal stability and output. Length of stay likely 2-3 more days. 05/21/2021 65-year-old female admitted to the floor for possible CHF exacerbation. No known history of CHF but it is now confirmed by echocardiogram with a EF of 45% and global mildly decreased left ventricular systolic function. There is also concentric left ventricular hypertrophy and a severe aortic stenosis noted. Patient will need to follow-up with cardiology regarding her aortic stenosis after discharge. She continues to have rather unimpressive urine output. She is down 5 pounds from admission. There is no leukocytosis and her hemoglobin is 12.0 with a hematocrit of 39.0. Platelets are 140. Sodium has increased to 140. Potassium 4.3. Chloride 103. Carbon dioxide 30. Anion gap is 11.3. BUN is 39. Creatinine 2.2. GFR is 22. Glucose has been between 152 and 222. Calcium is 7.9. Troponin has improved to 0.146. Suspect this is demand ischemia. She will be placed on BiPAP nocturnally and as needed with naps. Otherwise she reports she feels better today. No acute concerns. Plan will be to continue diuresis and wean with oxygen as patient tolerates. She is currently on 3 L. Likely discharge in 2 to 3 days pending improvement. - Plan Plan:: 65-year-old female who presents to the emergency department with a chief complaint of cough and difficulty breathing found to be hypoxic requiring supplemental oxygen. Referred for CHF exacerbation. 1. Acute hypoxic respiratory failure. Admit to the hospitalist service on telemetry for further management. Secondary to acute CHF exacerbation. Echo to establish diastolic versus systolic or perhaps both. Continue lasix 60mg with BIDDiuretic dosing. Fluid restriction of 2 L/day. Daily weights by standing scale only. RT consult. Bronchodilators as necessary. Wean supplemental oxygen as tolerated. Daily ambulation saturation trials. Monitor I&O Q4Hr PRN BiPAP nocturnal and when napping 2. Acute CHF exacerbation. Plan as above. Echocardiogram obtained: 05/20/2021: * 1. LVEF, by visual estimation, is 45%. * 2. Global mildly decreased left ventricular systolic function. * 3. Elevated mean left arterial pressure. * 4. Moderate concentric left ventricular hypertrophy. * 5. Normal right ventricular systolic function. * 6. Probable bicuspid aortic valve. Severe aortic stenosis with PV 4.34 m/s, MG 42 mmHg, ASHVIN 0.98 cm2, DI 0.26. Moderate AI. * 7. Trace mitral valve regurgitation. * 8. The right ventricular systolic pressure is unable to be determined. 3. Type 2 diabetes mellitus. Hold metformin. Continue hospital hyperglycemia protocol. Check hemoglobin A1c - 7.9 Dietitian and diabetes education consultation. 3. Mild elevated troponin, improving Likely secondary to supply demand mismatch in the setting of hypoxia. Patient without chest pain. No EKG changes. No need for full strength anticoagulation currently. Echocardiogram pending. 4. CKD stage III nearly stage IV. Intermittent monitoring of labs. Avoid nephrotoxins. Renally dose medications if appropriate. Holding Metformin and Cozaar. Monitor volume status as she is requiring active diuresis. 5. Severe aortic stenosis Will need cardiology follow-up after discharge CODE STATUS: Full code. DVT prophylaxis with heparin and SCDs. PCP: Ana María Gibbs PA-C <Horace Vega Jr - Last Filed: 05/21/21 18:51> - Patient Data Vitals - Most Recent: Last Vital Signs Temp 96.6 F L 05/21/21 16:46 Pulse 71 05/21/21 16:46 Resp 20 05/21/21 16:46 BP 124/53 L 05/21/21 16:46 Pulse Ox 95 05/21/21 12:11 I&O - Last 24 Hours: Intake & Output 05/21/21 05/21/21 05/21/21 06:59 14:59 22:59 Intake Total 720 120 Output Total 250 500 400 Balance -250 220 -280 Lab Results Last 24 Hours: Laboratory Results - last 24 hr 05/20/21 05/21/21 05/21/21 Range/Units 21:45 06:09 06:10 WBC 9.25 (3.98-10.04) K/mm3 RBC 4.46 (3.98-5.22) M/mm3 Hgb 12.0 (11.2-15.7) gm/dl Hct 39.0 (34.1-44.9) % MCV 87.4 (79.4-94.8) fl MCH 26.9 (25.6-32.2) pg MCHC 30.8 L (32.2-35.5) g/dl RDW Std Deviation 43.8 (36.4-46.3) fL Plt Count 140 L (182-369) K/mm3 MPV 12.2 (9.4-12.3) fl Neut % (Auto) 65.3 (34.0-71.1) % Lymph % (Auto) 19.9 (19.3-51.7) % Moody % (Auto) 10.2 (4.7-12.5) % Eos % (Auto) 4.3 (0.7-5.8) Baso % (Auto) 0.2 (0.1-1.2) % Neut # (Auto) 6.04 (1.56-6.13) K/mm3 Lymph # (Auto) 1.84 (1.18-3.74) K/mm3 Moody # (Auto) 0.94 H (0.24-0.36) K/mm3 Eos # (Auto) 0.40 H (0.04-0.36) K/mm3 Baso # (Auto) 0.02 (0.01-0.08) K/mm3 Sodium (136-145) mEq/L Potassium (3.5-5.1) mEq/L Chloride (98-107) mEq/L Carbon Dioxide (21-32) mEq/L Anion Gap (5-15) BUN (7-18) mg/dL Creatinine (0.55-1.02) mg/dL Est Cr Clr Drug Dosing mL/min Estimated GFR (MDRD) (>60) mL/min BUN/Creatinine Ratio (14-18) Glucose (70-99) mg/dL POC Glucose 178 H 190 H (70-99) mg/dL Calcium (8.5-10.1) mg/dL Troponin I (0.00-0.056) ng/mL 05/21/21 05/21/21 05/21/21 Range/Units 06:10 06:10 11:10 WBC (3.98-10.04) K/mm3 RBC (3.98-5.22) M/mm3 Hgb (11.2-15.7) gm/dl Hct (34.1-44.9) % MCV (79.4-94.8) fl MCH (25.6-32.2) pg MCHC (32.2-35.5) g/dl RDW Std Deviation (36.4-46.3) fL Plt Count (182-369) K/mm3 MPV (9.4-12.3) fl Neut % (Auto) (34.0-71.1) % Lymph % (Auto) (19.3-51.7) % Moody % (Auto) (4.7-12.5) % Eos % (Auto) (0.7-5.8) Baso % (Auto) (0.1-1.2) % Neut # (Auto) (1.56-6.13) K/mm3 Lymph # (Auto) (1.18-3.74) K/mm3 Moody # (Auto) (0.24-0.36) K/mm3 Eos # (Auto) (0.04-0.36) K/mm3 Baso # (Auto) (0.01-0.08) K/mm3 Sodium 140 (136-145) mEq/L Potassium 4.3 (3.5-5.1) mEq/L Chloride 103 (98-107) mEq/L Carbon Dioxide 30 (21-32) mEq/L Anion Gap 11.3 (5-15) BUN 39 H (7-18) mg/dL Creatinine 2.2 H (0.55-1.02) mg/dL Est Cr Clr Drug Dosing 20.81 mL/min Estimated GFR (MDRD) 22 (>60) mL/min BUN/Creatinine Ratio 17.7 (14-18) Glucose 222 H (70-99) mg/dL POC Glucose 262 H (70-99) mg/dL Calcium 7.9 L (8.5-10.1) mg/dL Troponin I 0.146 H* (0.00-0.056) ng/mL 05/21/21 Range/Units 16:30 WBC (3.98-10.04) K/mm3 RBC (3.98-5.22) M/mm3 Hgb (11.2-15.7) gm/dl Hct (34.1-44.9) % MCV (79.4-94.8) fl MCH (25.6-32.2) pg MCHC (32.2-35.5) g/dl RDW Std Deviation (36.4-46.3) fL Plt Count (182-369) K/mm3 MPV (9.4-12.3) fl Neut % (Auto) (34.0-71.1) % Lymph % (Auto) (19.3-51.7) % Moody % (Auto) (4.7-12.5) % Eos % (Auto) (0.7-5.8) Baso % (Auto) (0.1-1.2) % Neut # (Auto) (1.56-6.13) K/mm3 Lymph # (Auto) (1.18-3.74) K/mm3 Moody # (Auto) (0.24-0.36) K/mm3 Eos # (Auto) (0.04-0.36) K/mm3 Baso # (Auto) (0.01-0.08) K/mm3 Sodium (136-145) mEq/L Potassium (3.5-5.1) mEq/L Chloride (98-107) mEq/L Carbon Dioxide (21-32) mEq/L Anion Gap (5-15) BUN (7-18) mg/dL Creatinine (0.55-1.02) mg/dL Est Cr Clr Drug Dosing mL/min Estimated GFR (MDRD) (>60) mL/min BUN/Creatinine Ratio (14-18) Glucose (70-99) mg/dL POC Glucose 122 H (70-99) mg/dL Calcium (8.5-10.1) mg/dL Troponin I (0.00-0.056) ng/mL Med Orders - Current: Current Medications Acetaminophen (Acetaminophen 325 Mg Tab) 650 mg PO Q4H PRN PRN Reason: Pain (Mild 1-3)/fever Albuterol (Albuterol 6.7 Gm Inhaler) 0 gm INH Q2H PRN PRN Reason: SOB/Wheezing Albuterol/Ipratropium (Albuterol/Ipratropium 3.0-0.5 Mg/3 Ml Neb Soln) 3 ml NEB QIDRT PRN PRN Reason: SOB/Wheezing Last Admin: 05/21/21 08:31 Dose: 3 ml Documented by: Aspirin (Aspirin 81 Mg Tab.Ec) 81 mg PO DAILY [facility] Last Admin: 05/21/21 08:00 Dose: 81 mg Documented by: Docusate Sodium (Docusate Sodium 100 Mg Cap) 100 mg PO BID PRN PRN Reason: Constipation Furosemide (Furosemide 40 Mg/4 Ml Vial) 60 mg IVPUSH BIDDIURETIC [facility] Last Admin: 05/21/21 14:54 Dose: 60 mg Documented by: Heparin Sodium (Porcine) (Heparin Sodium 5,000 Units/Ml Vial) 5,000 units SUBCUT Q8H [facility] Last Admin: 05/21/21 14:55 Dose: 5,000 units Documented by: Insulin Glargine (Insulin Glargine,Hum.Rec.Anlog 100 Unit/Ml 3 Ml Pen) 10 unit SUBCUT DAILY [facility] Last Admin: 05/21/21 09:39 Dose: 10 unit Documented by: Insulin Human Lispro (Insulin Lispro 100 Unit/Ml 3 Ml Kwikpen) 0 unit SUBCUT QIDACANDBED [facility]; Protocol Last Admin: 05/21/21 16:48 Dose: Not Given Documented by: Ondansetron HCl (Ondansetron 4 Mg Tab.Dis) 4 mg PO Q4H PRN PRN Reason: nausea, able to take PO Ondansetron HCl (Ondansetron 4 Mg/2 Ml Sdv) 4 mg IV Q4H PRN PRN Reason: Nausea/Vomiting Simvastatin (Simvastatin 40 Mg Tab) 40 mg PO BEDTIME [facility] Last Admin: 05/20/21 21:10 Dose: 40 mg Documented by: Sodium Chloride (Sodium Chloride 0.9% 10 Ml Syringe) 10 ml FLUSH ASDIRECTED PRN PRN Reason: Keep Vein Open Last Admin: 05/19/21 14:01 Dose: 10 ml Documented by: Discontinued Medications Albuterol (Albuterol 0.083% 2.5 Mg/3 Ml Neb Soln) 2.5 mg NEB ONETIME ONE Stop: 05/19/21 12:28 Last Admin: 05/19/21 12:52 Dose: 2.5 mg Documented by: Furosemide (Furosemide 40 Mg/4 Ml Vial) 40 mg IVPUSH NOW ONE Stop: 05/19/21 13:00 Last Admin: 05/19/21 14:01 Dose: 40 mg Documented by: Furosemide (Furosemide 40 Mg/4 Ml Vial) 40 mg IVPUSH BID [facility] Last Admin: 05/20/21 08:33 Dose: 40 mg Documented by: Heparin Sodium (Porcine) (Heparin Sodium 5,000 Units/Ml Vial) 5,000 units SUBCUT Q8H [facility] Last Admin: 05/19/21 22:11 Dose: Not Given Documented by: Magnesium Sulfate 4 gm/ Premix 50 mls @ 12.5 mls/hr IV ONETIME ONE Stop: 05/19/21 17:37 Last Admin: 05/19/21 14:42 Dose: 12.5 mls/hr Documented by: Insulin Glargine (Insulin Glargine,Hum.Rec.Anlog 100 Unit/Ml 3 Ml Pen) 35 unit SUBCUT BID [facility] Last Admin: 05/20/21 09:30 Dose: Not Given Documented by: Insulin Glargine (Insulin Glargine,Hum.Rec.Anlog 100 Unit/Ml 3 Ml Pen) 10 unit SUBCUT ONETIME ONE Stop: 05/20/21 13:31 Last Admin: 05/20/21 13:37 Dose: 10 units Documented by: Losartan Potassium (Losartan 50 Mg Tab) 50 mg PO DAILY [facility] Last Admin: 05/20/21 08:33 Dose: 50 mg Documented by: Magnesium Hydroxide (Magnesium Hydroxide 400 Mg/5 Ml Susp 30 Ml Cup) 30 ml PO ONETIME ONE Stop: 05/21/21 06:52 Last Admin: 05/21/21 07:26 Dose: 30 ml Documented by: - Patient Data Lab Results Last 24 hrs: Laboratory Results - last 24 hr 05/20/21 05/21/21 05/21/21 Range/Units 21:45 06:09 06:10 WBC 9.25 (3.98-10.04) K/mm3 RBC 4.46 (3.98-5.22) M/mm3 Hgb 12.0 (11.2-15.7) gm/dl Hct 39.0 (34.1-44.9) % MCV 87.4 (79.4-94.8) fl MCH 26.9 (25.6-32.2) pg MCHC 30.8 L (32.2-35.5) g/dl RDW Std Deviation 43.8 (36.4-46.3) fL Plt Count 140 L (182-369) K/mm3 MPV 12.2 (9.4-12.3) fl Neut % (Auto) 65.3 (34.0-71.1) % Lymph % (Auto) 19.9 (19.3-51.7) % Moody % (Auto) 10.2 (4.7-12.5) % Eos % (Auto) 4.3 (0.7-5.8) Baso % (Auto) 0.2 (0.1-1.2) % Neut # (Auto) 6.04 (1.56-6.13) K/mm3 Lymph # (Auto) 1.84 (1.18-3.74) K/mm3 Moody # (Auto) 0.94 H (0.24-0.36) K/mm3 Eos # (Auto) 0.40 H (0.04-0.36) K/mm3 Baso # (Auto) 0.02 (0.01-0.08) K/mm3 Sodium (136-145) mEq/L Potassium (3.5-5.1) mEq/L Chloride (98-107) mEq/L Carbon Dioxide (21-32) mEq/L Anion Gap (5-15) BUN (7-18) mg/dL Creatinine (0.55-1.02) mg/dL Est Cr Clr Drug Dosing mL/min Estimated GFR (MDRD) (>60) mL/min BUN/Creatinine Ratio (14-18) Glucose (70-99) mg/dL POC Glucose 178 H 190 H (70-99) mg/dL Calcium (8.5-10.1) mg/dL Troponin I (0.00-0.056) ng/mL 05/21/21 05/21/21 05/21/21 Range/Units 06:10 06:10 11:10 WBC (3.98-10.04) K/mm3 RBC (3.98-5.22) M/mm3 Hgb (11.2-15.7) gm/dl Hct (34.1-44.9) % MCV (79.4-94.8) fl MCH (25.6-32.2) pg MCHC (32.2-35.5) g/dl RDW Std Deviation (36.4-46.3) fL Plt Count (182-369) K/mm3 MPV (9.4-12.3) fl Neut % (Auto) (34.0-71.1) % Lymph % (Auto) (19.3-51.7) % Moody % (Auto) (4.7-12.5) % Eos % (Auto) (0.7-5.8) Baso % (Auto) (0.1-1.2) % Neut # (Auto) (1.56-6.13) K/mm3 Lymph # (Auto) (1.18-3.74) K/mm3 Moody # (Auto) (0.24-0.36) K/mm3 Eos # (Auto) (0.04-0.36) K/mm3 Baso # (Auto) (0.01-0.08) K/mm3 Sodium 140 (136-145) mEq/L Potassium 4.3 (3.5-5.1) mEq/L Chloride 103 (98-107) mEq/L Carbon Dioxide 30 (21-32) mEq/L Anion Gap 11.3 (5-15) BUN 39 H (7-18) mg/dL Creatinine 2.2 H (0.55-1.02) mg/dL Est Cr Clr Drug Dosing 20.81 mL/min Estimated GFR (MDRD) 22 (>60) mL/min BUN/Creatinine Ratio 17.7 (14-18) Glucose 222 H (70-99) mg/dL POC Glucose 262 H (70-99) mg/dL Calcium 7.9 L (8.5-10.1) mg/dL Troponin I 0.146 H* (0.00-0.056) ng/mL 05/21/21 Range/Units 16:30 WBC (3.98-10.04) K/mm3 RBC (3.98-5.22) M/mm3 Hgb (11.2-15.7) gm/dl Hct (34.1-44.9) % MCV (79.4-94.8) fl MCH (25.6-32.2) pg MCHC (32.2-35.5) g/dl RDW Std Deviation (36.4-46.3) fL Plt Count (182-369) K/mm3 MPV (9.4-12.3) fl Neut % (Auto) (34.0-71.1) % Lymph % (Auto) (19.3-51.7) % Moody % (Auto) (4.7-12.5) % Eos % (Auto) (0.7-5.8) Baso % (Auto) (0.1-1.2) % Neut # (Auto) (1.56-6.13) K/mm3 Lymph # (Auto) (1.18-3.74) K/mm3 Moody # (Auto) (0.24-0.36) K/mm3 Eos # (Auto) (0.04-0.36) K/mm3 Baso # (Auto) (0.01-0.08) K/mm3 Sodium (136-145) mEq/L Potassium (3.5-5.1) mEq/L Chloride (98-107) mEq/L Carbon Dioxide (21-32) mEq/L Anion Gap (5-15) BUN (7-18) mg/dL Creatinine (0.55-1.02) mg/dL Est Cr Clr Drug Dosing mL/min Estimated GFR (MDRD) (>60) mL/min BUN/Creatinine Ratio (14-18) Glucose (70-99) mg/dL POC Glucose 122 H (70-99) mg/dL Calcium (8.5-10.1) mg/dL Troponin I (0.00-0.056) ng/mL Result Diagrams: 05/21/21 06:10 05/21/21 06:10 Sepsis Event Note - Focused Exam Vital Signs: Vital Signs Temp Pulse Resp BP Pulse Ox Pulse Ox 05/21/21 16:46 96.6 F L 71 20 124/53 L 05/21/21 12:13 98.2 F 05/21/21 12:11 77 16 96/74 95 05/21/21 08:40 92 L 05/21/21 08:15 94 L 05/21/21 08:01 98.4 F 77 24 H 126/57 L 93 L - My Orders Last 24 Hours: My Active Orders 05/22/21 06:00 BASIC METABOLIC PANEL,BMP [CHEM] DAILY CBC WITH AUTO DIFF [HEME] DAILY 05/23/21 06:00 BASIC METABOLIC PANEL,BMP [CHEM] DAILY CBC WITH AUTO DIFF [HEME] DAILY - Plan Plan:: Case discussed in full. Agree with evaluation, assessment and plan. -Ismael Smith Jr., DO
[2021-05-21] MEDS: Insulin Lispro 100 Unit/ML 3 ML KwikPen SUBCUT SCH ×4 (07:59→21:01)
[2021-05-21] MEDS: Aspirin 81 MG Tab.EC PO SCH (08:00)
[2021-05-21] MEDS: Albuterol/Ipratropium 3.0-0.5 MG/3 ML Neb Soln NEB PRN (08:31)
[2021-05-21] MEDS: Insulin Glargine,Hum.Rec.Anlog 100 UNIT/ML 3 ML Pen SUBCUT SCH (09:39)
[2021-05-21] MEDS: Simvastatin 40 MG Tab PO SCH (20:05)
[2021-05-22] MEDS: Heparin Sodium 5,000 Units/ML Vial SUBCUT SCH ×3 (05:38→20:48)
[2021-05-22] MEDS: Furosemide 40 MG/4 ML VIAL IVPUSH SCH ×2 (05:41→13:45)
[2021-05-22] MEDS: Insulin Lispro 100 Unit/ML 3 ML KwikPen SUBCUT SCH ×5 (06:02→21:40)
[2021-05-22] MEDS: Aspirin 81 MG Tab.EC PO SCH (08:28)
[2021-05-22] MEDS: Insulin Glargine,Hum.Rec.Anlog 100 UNIT/ML 3 ML Pen SUBCUT SCH (08:28)
--- NOTE | 2021-05-22 08:28 | PCM.PN ---
- General Info Date of Service: 05/22/21 Admission Dx/Problem (Free Text): Admission Diagnosis/Problem Admission Diagnosis/Problem CHF, Congestive heart failure Subjective Update: No acute events overnight. No new nursing concerns. Mild oxygen requirement. Not wearing positive pressure support at night. Weight has remained status quo. Patient states that she is at 60% of her normal self. Echo has noted severe aortic stenosis. - Patient Data Vitals - Most Recent: Last Vital Signs Temp 98.4 F 05/22/21 04:00 Pulse 74 05/22/21 04:00 Resp 20 05/22/21 04:00 BP 112/72 05/22/21 04:00 Pulse Ox 90 L 05/22/21 04:00 Weight - Most Recent: 235 lb 1.6 oz I&O - Last 24 Hours: Intake & Output 05/21/21 05/22/21 05/22/21 22:59 06:59 14:59 Intake Total 140 50 Output Total 400 405 Balance -260 -355 Lab Results Last 24 Hours: Laboratory Results - last 24 hr 05/21/21 05/21/21 05/21/21 Range/Units 06:10 11:10 16:30 WBC (3.98-10.04) K/mm3 RBC (3.98-5.22) M/mm3 Hgb (11.2-15.7) gm/dl Hct (34.1-44.9) % MCV (79.4-94.8) fl MCH (25.6-32.2) pg MCHC (32.2-35.5) g/dl RDW Std Deviation (36.4-46.3) fL Plt Count (182-369) K/mm3 MPV (9.4-12.3) fl Neut % (Auto) (34.0-71.1) % Lymph % (Auto) (19.3-51.7) % Haywood % (Auto) (4.7-12.5) % Eos % (Auto) (0.7-5.8) Baso % (Auto) (0.1-1.2) % Neut # (Auto) (1.56-6.13) K/mm3 Lymph # (Auto) (1.18-3.74) K/mm3 [place]wood # (Auto) (0.24-0.36) K/mm3 Eos # (Auto) (0.04-0.36) K/mm3 Baso # (Auto) (0.01-0.08) K/mm3 Sodium (136-145) mEq/L Potassium (3.5-5.1) mEq/L Chloride (98-107) mEq/L Carbon Dioxide (21-32) mEq/L Anion Gap (5-15) BUN (7-18) mg/dL Creatinine (0.55-1.02) mg/dL Est Cr Clr Drug Dosing mL/min Estimated GFR (MDRD) (>60) mL/min BUN/Creatinine Ratio (14-18) Glucose (70-99) mg/dL POC Glucose 262 H 122 H (70-99) mg/dL Calcium (8.5-10.1) mg/dL Troponin I 0.146 H* (0.00-0.056) ng/mL 05/21/21 05/22/21 05/22/21 Range/Units 20:19 04:44 04:44 WBC 8.63 (3.98-10.04) K/mm3 RBC 4.10 (3.98-5.22) M/mm3 Hgb 10.9 L (11.2-15.7) gm/dl Hct 36.3 (34.1-44.9) % MCV 88.5 (79.4-94.8) fl MCH 26.6 (25.6-32.2) pg MCHC 30.0 L (32.2-35.5) g/dl RDW Std Deviation 43.9 (36.4-46.3) fL Plt Count 145 L (182-369) K/mm3 MPV 12.5 H (9.4-12.3) fl Neut % (Auto) 60.7 (34.0-71.1) % Lymph % (Auto) 24.6 (19.3-51.7) % [place]wood % (Auto) 9.3 (4.7-12.5) % Eos % (Auto) 4.9 (0.7-5.8) Baso % (Auto) 0.3 (0.1-1.2) % Neut # (Auto) 5.24 (1.56-6.13) K/mm3 Lymph # (Auto) 2.12 (1.18-3.74) K/mm3 [place]wood # (Auto) 0.80 H (0.24-0.36) K/mm3 Eos # (Auto) 0.42 H (0.04-0.36) K/mm3 Baso # (Auto) 0.03 (0.01-0.08) K/mm3 Sodium 141 (136-145) mEq/L Potassium 4.1 (3.5-5.1) mEq/L Chloride 103 (98-107) mEq/L Carbon Dioxide 30 (21-32) mEq/L Anion Gap 12.1 (5-15) BUN 42 H (7-18) mg/dL Creatinine 2.0 H (0.55-1.02) mg/dL Est Cr Clr Drug Dosing 22.89 mL/min Estimated GFR (MDRD) 25 (>60) mL/min BUN/Creatinine Ratio 21.0 H (14-18) Glucose 130 H (70-99) mg/dL POC Glucose 234 H (70-99) mg/dL Calcium 8.1 L (8.5-10.1) mg/dL Troponin I (0.00-0.056) ng/mL 05/22/21 Range/Units 05:34 WBC (3.98-10.04) K/mm3 RBC (3.98-5.22) M/mm3 Hgb (11.2-15.7) gm/dl Hct (34.1-44.9) % MCV (79.4-94.8) fl MCH (25.6-32.2) pg MCHC (32.2-35.5) g/dl RDW Std Deviation (36.4-46.3) fL Plt Count (182-369) K/mm3 MPV (9.4-12.3) fl Neut % (Auto) (34.0-71.1) % Lymph % (Auto) (19.3-51.7) % [place]wood % (Auto) (4.7-12.5) % Eos % (Auto) (0.7-5.8) Baso % (Auto) (0.1-1.2) % Neut # (Auto) (1.56-6.13) K/mm3 Lymph # (Auto) (1.18-3.74) K/mm3 [place]wood # (Auto) (0.24-0.36) K/mm3 Eos # (Auto) (0.04-0.36) K/mm3 Baso # (Auto) (0.01-0.08) K/mm3 Sodium (136-145) mEq/L Potassium (3.5-5.1) mEq/L Chloride (98-107) mEq/L Carbon Dioxide (21-32) mEq/L Anion Gap (5-15) BUN (7-18) mg/dL Creatinine (0.55-1.02) mg/dL Est Cr Clr Drug Dosing mL/min Estimated GFR (MDRD) (>60) mL/min BUN/Creatinine Ratio (14-18) Glucose (70-99) mg/dL POC Glucose 123 H (70-99) mg/dL Calcium (8.5-10.1) mg/dL Troponin I (0.00-0.056) ng/mL Med Orders - Current: Current Medications Acetaminophen (Acetaminophen 325 Mg Tab) 650 mg PO Q4H PRN PRN Reason: Pain (Mild 1-3)/fever Albuterol (Albuterol 6.7 Gm Inhaler) 0 gm INH Q2H PRN PRN Reason: SOB/Wheezing Albuterol/Ipratropium (Albuterol/Ipratropium 3.0-0.5 Mg/3 Ml Neb Soln) 3 ml NEB QIDRT PRN PRN Reason: SOB/Wheezing Last Admin: 05/21/21 08:31 Dose: 3 ml Documented by: Aspirin (Aspirin 81 Mg Tab.Ec) 81 mg PO DAILY [facility] Last Admin: 05/21/21 08:00 Dose: 81 mg Documented by: Docusate Sodium (Docusate Sodium 100 Mg Cap) 100 mg PO BID PRN PRN Reason: Constipation Furosemide (Furosemide 40 Mg/4 Ml Vial) 60 mg IVPUSH BIDDIURETIC [facility] Last Admin: 05/22/21 05:41 Dose: 60 mg Documented by: Heparin Sodium (Porcine) (Heparin Sodium 5,000 Units/Ml Vial) 5,000 units SUBCUT Q8H [facility] Last Admin: 05/22/21 05:38 Dose: 5,000 units Documented by: Insulin Glargine (Insulin Glargine,Hum.Rec.Anlog 100 Unit/Ml 3 Ml Pen) 10 unit SUBCUT DAILY [facility] Last Admin: 05/21/21 09:39 Dose: 10 unit Documented by: Insulin Human Lispro (Insulin Lispro 100 Unit/Ml 3 Ml Kwikpen) 0 unit SUBCUT QIDACANDBED [facility]; Protocol Last Admin: 05/22/21 06:02 Dose: Not Given Documented by: Ondansetron HCl (Ondansetron 4 Mg Tab.Dis) 4 mg PO Q4H PRN PRN Reason: nausea, able to take PO Ondansetron HCl (Ondansetron 4 Mg/2 Ml Sdv) 4 mg IV Q4H PRN PRN Reason: Nausea/Vomiting Simvastatin (Simvastatin 40 Mg Tab) 40 mg PO BEDTIME [facility] Last Admin: 05/21/21 20:05 Dose: 40 mg Documented by: Sodium Chloride (Sodium Chloride 0.9% 10 Ml Syringe) 10 ml FLUSH ASDIRECTED PRN PRN Reason: Keep Vein Open Last Admin: 05/19/21 14:01 Dose: 10 ml Documented by: Discontinued Medications Albuterol (Albuterol 0.083% 2.5 Mg/3 Ml Neb Soln) 2.5 mg NEB ONETIME ONE Stop: 05/19/21 12:28 Last Admin: 05/19/21 12:52 Dose: 2.5 mg Documented by: Furosemide (Furosemide 40 Mg/4 Ml Vial) 40 mg IVPUSH NOW ONE Stop: 05/19/21 13:00 Last Admin: 05/19/21 14:01 Dose: 40 mg Documented by: Furosemide (Furosemide 40 Mg/4 Ml Vial) 40 mg IVPUSH BID [facility] Last Admin: 05/20/21 08:33 Dose: 40 mg Documented by: Heparin Sodium (Porcine) (Heparin Sodium 5,000 Units/Ml Vial) 5,000 units SUBCUT Q8H [facility] Last Admin: 05/19/21 22:11 Dose: Not Given Documented by: Magnesium Sulfate 4 gm/ Premix 50 mls @ 12.5 mls/hr IV ONETIME ONE Stop: 05/19/21 17:37 Last Admin: 05/19/21 14:42 Dose: 12.5 mls/hr Documented by: Insulin Glargine (Insulin Glargine,Hum.Rec.Anlog 100 Unit/Ml 3 Ml Pen) 35 unit SUBCUT BID [facility] Last Admin: 05/20/21 09:30 Dose: Not Given Documented by: Insulin Glargine (Insulin Glargine,Hum.Rec.Anlog 100 Unit/Ml 3 Ml Pen) 10 unit SUBCUT ONETIME ONE Stop: 05/20/21 13:31 Last Admin: 05/20/21 13:37 Dose: 10 units Documented by: Losartan Potassium (Losartan 50 Mg Tab) 50 mg PO DAILY [facility] Last Admin: 05/20/21 08:33 Dose: 50 mg Documented by: Magnesium Hydroxide (Magnesium Hydroxide 400 Mg/5 Ml Susp 30 Ml Cup) 30 ml PO ONETIME ONE Stop: 05/21/21 06:52 Last Admin: 05/21/21 07:26 Dose: 30 ml Documented by: - Exam Quality Assessment: Supplemental Oxygen General: Alert Lungs: Decreased Breath Sounds Cardiovascular: Regular Rate, Murmurs (Aortic stenosis murmur) GI/Abdominal Exam: Normal Bowel Sounds, Soft, Non-Tender, Other (Morbidly obese) Extremities: Normal Inspection, Pedal Edema Skin: Warm, Dry - Patient Data Lab Results Last 24 hrs: Laboratory Results - last 24 hr 05/21/21 05/21/21 05/21/21 Range/Units 06:10 11:10 16:30 WBC (3.98-10.04) K/mm3 RBC (3.98-5.22) M/mm3 Hgb (11.2-15.7) gm/dl Hct (34.1-44.9) % MCV (79.4-94.8) fl MCH (25.6-32.2) pg MCHC (32.2-35.5) g/dl RDW Std Deviation (36.4-46.3) fL Plt Count (182-369) K/mm3 MPV (9.4-12.3) fl Neut % (Auto) (34.0-71.1) % Lymph % (Auto) (19.3-51.7) % [place] % (Auto) (4.7-12.5) % Eos % (Auto) (0.7-5.8) Baso % (Auto) (0.1-1.2) % Neut # (Auto) (1.56-6.13) K/mm3 Lymph # (Auto) (1.18-3.74) K/mm3 [place] # (Auto) (0.24-0.36) K/mm3 Eos # (Auto) (0.04-0.36) K/mm3 Baso # (Auto) (0.01-0.08) K/mm3 Sodium (136-145) mEq/L Potassium (3.5-5.1) mEq/L Chloride (98-107) mEq/L Carbon Dioxide (21-32) mEq/L Anion Gap (5-15) BUN (7-18) mg/dL Creatinine (0.55-1.02) mg/dL Est Cr Clr Drug Dosing mL/min Estimated GFR (MDRD) (>60) mL/min BUN/Creatinine Ratio (14-18) Glucose (70-99) mg/dL POC Glucose 262 H 122 H (70-99) mg/dL Calcium (8.5-10.1) mg/dL Troponin I 0.146 H* (0.00-0.056) ng/mL 05/21/21 05/22/21 05/22/21 Range/Units 20:19 04:44 04:44 WBC 8.63 (3.98-10.04) K/mm3 RBC 4.10 (3.98-5.22) M/mm3 Hgb 10.9 L (11.2-15.7) gm/dl Hct 36.3 (34.1-44.9) % MCV 88.5 (79.4-94.8) fl MCH 26.6 (25.6-32.2) pg MCHC 30.0 L (32.2-35.5) g/dl RDW Std Deviation 43.9 (36.4-46.3) fL Plt Count 145 L (182-369) K/mm3 MPV 12.5 H (9.4-12.3) fl Neut % (Auto) 60.7 (34.0-71.1) % Lymph % (Auto) 24.6 (19.3-51.7) % [place] % (Auto) 9.3 (4.7-12.5) % Eos % (Auto) 4.9 (0.7-5.8) Baso % (Auto) 0.3 (0.1-1.2) % Neut # (Auto) 5.24 (1.56-6.13) K/mm3 Lymph # (Auto) 2.12 (1.18-3.74) K/mm3 [place] # (Auto) 0.80 H (0.24-0.36) K/mm3 Eos # (Auto) 0.42 H (0.04-0.36) K/mm3 Baso # (Auto) 0.03 (0.01-0.08) K/mm3 Sodium 141 (136-145) mEq/L Potassium 4.1 (3.5-5.1) mEq/L Chloride 103 (98-107) mEq/L Carbon Dioxide 30 (21-32) mEq/L Anion Gap 12.1 (5-15) BUN 42 H (7-18) mg/dL Creatinine 2.0 H (0.55-1.02) mg/dL Est Cr Clr Drug Dosing 22.89 mL/min Estimated GFR (MDRD) 25 (>60) mL/min BUN/Creatinine Ratio 21.0 H (14-18) Glucose 130 H (70-99) mg/dL POC Glucose 234 H (70-99) mg/dL Calcium 8.1 L (8.5-10.1) mg/dL Troponin I (0.00-0.056) ng/mL 05/22/21 Range/Units 05:34 WBC (3.98-10.04) K/mm3 RBC (3.98-5.22) M/mm3 Hgb (11.2-15.7) gm/dl Hct (34.1-44.9) % MCV (79.4-94.8) fl MCH (25.6-32.2) pg MCHC (32.2-35.5) g/dl RDW Std Deviation (36.4-46.3) fL Plt Count (182-369) K/mm3 MPV (9.4-12.3) fl Neut % (Auto) (34.0-71.1) % Lymph % (Auto) (19.3-51.7) % [place] % (Auto) (4.7-12.5) % Eos % (Auto) (0.7-5.8) Baso % (Auto) (0.1-1.2) % Neut # (Auto) (1.56-6.13) K/mm3 Lymph # (Auto) (1.18-3.74) K/mm3 [place] # (Auto) (0.24-0.36) K/mm3 Eos # (Auto) (0.04-0.36) K/mm3 Baso # (Auto) (0.01-0.08) K/mm3 Sodium (136-145) mEq/L Potassium (3.5-5.1) mEq/L Chloride (98-107) mEq/L Carbon Dioxide (21-32) mEq/L Anion Gap (5-15) BUN (7-18) mg/dL Creatinine (0.55-1.02) mg/dL Est Cr Clr Drug Dosing mL/min Estimated GFR (MDRD) (>60) mL/min BUN/Creatinine Ratio (14-18) Glucose (70-99) mg/dL POC Glucose 123 H (70-99) mg/dL Calcium (8.5-10.1) mg/dL Troponin I (0.00-0.056) ng/mL Result Diagrams: 05/22/21 04:44 05/22/21 04:44 Sepsis Event Note - Evaluation Sepsis Screening Result: No Definite Risk - Focused Exam Vital Signs: Vital Signs Temp Pulse Resp BP Pulse Ox 05/22/21 04:00 98.4 F 74 4 L 112/72 90 L 05/22/21 01:11 99.0 F 75 18 131/44 L 05/22/21 01:10 93 L 05/21/21 22:31 97.2 F 73 16 107/66 91 L 05/21/21 22:28 97.2 F - Problem List Review Problem List Initiated/Reviewed/Updated: Yes - My Orders Last 24 Hours: My Active Orders 05/23/21 06:00 BASIC METABOLIC PANEL,BMP [CHEM] DAILY CBC WITH AUTO DIFF [HEME] DAILY - Assessment Assessment:: 05/20/2021 This is a 65-year-old female who was admitted to the floor for concerns over new onset CHF. Patient is requiring 3 L of oxygen currently but states she does not feel too short of breath with this. She is currently receiving 40 mg IV push daily Lasix and has not had too much output with this. We will therefore increase her to 60 mg twice daily IV push with diuretic scheduling. Will monitor I's and O's and daily weights. She does report a history of asthma and so we will add in as needed albuterol MDI and DuoNeb's. RT is consulted and working on weaning patient. Echocardiogram was obtained today and is pending. A1c was 7.9 and we will continue to hold her Metformin and prescribe long-acting insulin per her home dosing and also sliding scale insulin as needed. Troponin has improved from admission to 0.162. This is likely secondary to demand ischemia. BUN is increased to 25 and creatinine is 1.9. GFR is 26. Glucose has been between 202 and 207. Magnesium is 2.2. proBNP on recheck was 6926. We will hold the patient's Cozaar and continue to diurese. Will address plan pending on renal stability and output. Length of stay likely 2-3 more days. 05/21/2021 65-year-old female admitted to the floor for possible CHF exacerbation. No known history of CHF but it is now confirmed by echocardiogram with a EF of 45% and global mildly decreased left ventricular systolic function. There is also concentric left ventricular hypertrophy and a severe aortic stenosis noted. Patient will need to follow-up with cardiology regarding her aortic stenosis after discharge. She continues to have rather unimpressive urine output. She is down 5 pounds from admission. There is no leukocytosis and her hemoglobin is 12.0 with a hematocrit of 39.0. Platelets are 140. Sodium has increased to 140. Potassium 4.3. Chloride 103. Carbon dioxide 30. Anion gap is 11.3. BUN is 39. Creatinine 2.2. GFR is 22. Glucose has been between 152 and 222. Calcium is 7.9. Troponin has improved to 0.146. Suspect this is demand is chemia. She will be placed on BiPAP nocturnally and as needed with naps. Otherwise she reports she feels better today. No acute concerns. Plan will be to continue diuresis and wean with oxygen as patient tolerates. She is currently on 3 L. Likely discharge in 2 to 3 days pending improvement. - Plan Plan:: 65-year-old female who presents to the emergency department with a chief complaint of cough and difficulty breathing found to be hypoxic requiring supplemental oxygen. Referred for CHF exacerbation. 1. Acute hypoxic respiratory failure. Secondary to acute CHF exacerbation. In the setting of severe aortic stenosis. Increase Lasix to 80 mg IV push twice daily. Fluid restriction of 2 L/day. Daily weights by standing scale only. RT consult. Bronchodilators as necessary. Wean supplemental oxygen as tolerated. Daily ambulation saturation trials. Nocturnal BiPAP. 2. Acute CHF exacerbation. Plan as above. Echocardiogram pending in the morning. 3. Type 2 diabetes mellitus. Hold metformin. Continue hospital hyperglycemia protocol. Check hemoglobin A1c. Dietitian and diabetes education. 3. Mild elevated troponin. Likely secondary to supply demand mismatch in the setting of hypoxia. Patient without chest pain. No EKG changes. Will recheck in the morning. No need for stomach anticoagulation currently. Echocardiogram pending. 4. CKD stage III nearly stage IV. Intermittent monitoring of labs. Avoid nephrotoxins. Renally dose medications if appropriate. Holding Metformin. Monitor volume status as she is requiring active diuresis. CODE STATUS: Full code. DVT prophylaxis with heparin and SCDs.
[2021-05-22] MEDS: Albuterol/Ipratropium 3.0-0.5 MG/3 ML Neb Soln NEB PRN (20:22)
[2021-05-22] MEDS: Simvastatin 40 MG Tab PO SCH (20:48)
[2021-05-23] MEDS: Insulin Lispro 100 Unit/ML 3 ML KwikPen SUBCUT SCH ×4 (06:27→21:34)
[2021-05-23] MEDS: Furosemide 40 MG/4 ML VIAL IVPUSH SCH ×2 (06:28→14:14)
[2021-05-23] MEDS: Heparin Sodium 5,000 Units/ML Vial SUBCUT SCH ×3 (06:28→21:23)
[2021-05-23] MEDS: Insulin Glargine,Hum.Rec.Anlog 100 UNIT/ML 3 ML Pen SUBCUT SCH (08:37)
[2021-05-23] MEDS: Aspirin 81 MG Tab.EC PO SCH (08:37)
[2021-05-23] MEDS: Albuterol/Ipratropium 3.0-0.5 MG/3 ML Neb Soln NEB PRN ×2 (09:27→21:01)
--- NOTE | 2021-05-23 13:13 | PCM.PN ---
<Mandi Pena M - Last Filed: 05/23/21 13:13> - General Info Date of Service: 05/23/21 Admission Dx/Problem (Free Text): Admission Diagnosis/Problem Admission Diagnosis/Problem CHF, Congestive heart failure Functional Status: Reports: Pain Controlled, Ambulating, Urinating. Denies: Tolerating Diet (Decreased appetitedietitian is consulting) - Review of Systems General: Denies: Appetite (Decreased) HEENT: Reports: No Symptoms Pulmonary: Reports: Shortness of Breath, Cough (Occasional nonproductive) Cardiovascular: Reports: Dyspnea on Exertion, Orthopnea. Denies: Chest Pain, Palpitations Gastrointestinal: Reports: No Symptoms Genitourinary: Reports: No Symptoms Musculoskeletal: Reports: No Symptoms Skin: Reports: No Symptoms Neurological: Reports: No Symptoms Psychiatric: Reports: No Symptoms - Patient Data Vitals - Most Recent: Last Vital Signs Temp 98.2 F 05/23/21 08:27 Pulse 75 05/23/21 08:27 Resp 23 H 05/23/21 08:27 BP 139/89 05/23/21 08:27 Pulse Ox 96 05/23/21 09:27 Weight - Most Recent: 232 lb 1.6 oz I&O - Last 24 Hours: Intake & Output 05/22/21 05/23/21 05/23/21 22:59 06:59 14:59 Intake Total 600 400 Output Total 800 1150 Balance -200 -750 Lab Results Last 24 Hours: Laboratory Results - last 24 hr 05/22/21 05/22/21 05/23/21 Range/Units 17:07 20:40 04:50 WBC 9.43 (3.98-10.04) K/mm3 RBC 4.03 (3.98-5.22) M/mm3 Hgb 10.9 L (11.2-15.7) gm/dl Hct 35.7 (34.1-44.9) % MCV 88.6 (79.4-94.8) fl MCH 27.0 (25.6-32.2) pg MCHC 30.5 L (32.2-35.5) g/dl RDW Std Deviation 43.3 (36.4-46.3) fL Plt Count 160 L (182-369) K/mm3 MPV 13.1 H (9.4-12.3) fl Neut % (Auto) 64.5 (34.0-71.1) % Lymph % (Auto) 24.0 (19.3-51.7) % Harney % (Auto) 8.2 (4.7-12.5) % Eos % (Auto) 2.9 (0.7-5.8) Baso % (Auto) 0.2 (0.1-1.2) % Neut # (Auto) 6.09 (1.56-6.13) K/mm3 Lymph # (Auto) 2.26 (1.18-3.74) K/mm3 Harney # (Auto) 0.77 H (0.24-0.36) K/mm3 Eos # (Auto) 0.27 (0.04-0.36) K/mm3 Baso # (Auto) 0.02 (0.01-0.08) K/mm3 Sodium (136-145) mEq/L Potassium (3.5-5.1) mEq/L Chloride (98-107) mEq/L Carbon Dioxide (21-32) mEq/L Anion Gap (5-15) BUN (7-18) mg/dL Creatinine (0.55-1.02) mg/dL Est Cr Clr Drug Dosing mL/min Estimated GFR (MDRD) (>60) mL/min BUN/Creatinine Ratio (14-18) Glucose (70-99) mg/dL POC Glucose 142 H 261 H (70-99) mg/dL Calcium (8.5-10.1) mg/dL 05/23/21 05/23/21 05/23/21 Range/Units 04:53 06:24 11:39 WBC (3.98-10.04) K/mm3 RBC (3.98-5.22) M/mm3 Hgb (11.2-15.7) gm/dl Hct (34.1-44.9) % MCV (79.4-94.8) fl MCH (25.6-32.2) pg MCHC (32.2-35.5) g/dl RDW Std Deviation (36.4-46.3) fL Plt Count (182-369) K/mm3 MPV (9.4-12.3) fl Neut % (Auto) (34.0-71.1) % Lymph % (Auto) (19.3-51.7) % Harney % (Auto) (4.7-12.5) % Eos % (Auto) (0.7-5.8) Baso % (Auto) (0.1-1.2) % Neut # (Auto) (1.56-6.13) K/mm3 Lymph # (Auto) (1.18-3.74) K/mm3 Harney # (Auto) (0.24-0.36) K/mm3 Eos # (Auto) (0.04-0.36) K/mm3 Baso # (Auto) (0.01-0.08) K/mm3 Sodium 142 (136-145) mEq/L Potassium 4.4 (3.5-5.1) mEq/L Chloride 103 (98-107) mEq/L Carbon Dioxide 33 H (21-32) mEq/L Anion Gap 10.4 (5-15) BUN 43 H (7-18) mg/dL Creatinine 1.9 H (0.55-1.02) mg/dL Est Cr Clr Drug Dosing 24.09 mL/min Estimated GFR (MDRD) 26 (>60) mL/min BUN/Creatinine Ratio 22.6 H (14-18) Glucose 121 H (70-99) mg/dL POC Glucose 116 H 180 H (70-99) mg/dL Calcium 8.2 L (8.5-10.1) mg/dL Med Orders - Current: Current Medications Acetaminophen (Acetaminophen 325 Mg Tab) 650 mg PO Q4H PRN PRN Reason: Pain (Mild 1-3)/fever Albuterol (Albuterol 6.7 Gm Inhaler) 0 gm INH Q2H PRN PRN Reason: SOB/Wheezing Albuterol/Ipratropium (Albuterol/Ipratropium 3.0-0.5 Mg/3 Ml Neb Soln) 3 ml NEB QIDRT PRN PRN Reason: SOB/Wheezing Last Admin: 05/23/21 09:27 Dose: 3 ml Documented by: Aspirin (Aspirin 81 Mg Tab.Ec) 81 mg PO DAILY RAUDEL Last Admin: 05/23/21 08:37 Dose: 81 mg Documented by: Docusate Sodium (Docusate Sodium 100 Mg Cap) 100 mg PO BID PRN PRN Reason: Constipation Furosemide (Furosemide 40 Mg/4 Ml Vial) 80 mg IVPUSH BIDDIURETIC [facility] Last Admin: 05/23/21 06:28 Dose: 80 mg Documented by: Heparin Sodium (Porcine) (Heparin Sodium 5,000 Units/Ml Vial) 5,000 units SUBCUT Q8H [facility] Last Admin: 05/23/21 12:00 Dose: 5,000 units Documented by: Insulin Glargine (Insulin Glargine,Hum.Rec.Anlog 100 Unit/Ml 3 Ml Pen) 10 unit SUBCUT DAILY [facility] Last Admin: 05/23/21 08:37 Dose: 10 unit Documented by: Insulin Human Lispro (Insulin Lispro 100 Unit/Ml 3 Ml Kwikpen) 0 unit SUBCUT QIDACANDBED [facility]; Protocol Last Admin: 05/23/21 11:59 Dose: 2 units Documented by: Ondansetron HCl (Ondansetron 4 Mg Tab.Dis) 4 mg PO Q4H PRN PRN Reason: nausea, able to take PO Ondansetron HCl (Ondansetron 4 Mg/2 Ml Sdv) 4 mg IV Q4H PRN PRN Reason: Nausea/Vomiting Simvastatin (Simvastatin 40 Mg Tab) 40 mg PO BEDTIME [facility] Last Admin: 05/22/21 20:48 Dose: 40 mg Documented by: Sodium Chloride (Sodium Chloride 0.9% 10 Ml Syringe) 10 ml FLUSH ASDIRECTED PRN PRN Reason: Keep Vein Open Last Admin: 05/19/21 14:01 Dose: 10 ml Documented by: Discontinued Medications Albuterol (Albuterol 0.083% 2.5 Mg/3 Ml Neb Soln) 2.5 mg NEB ONETIME ONE Stop: 05/19/21 12:28 Last Admin: 05/19/21 12:52 Dose: 2.5 mg Documented by: Furosemide (Furosemide 40 Mg/4 Ml Vial) 40 mg IVPUSH NOW ONE Stop: 05/19/21 13:00 Last Admin: 05/19/21 14:01 Dose: 40 mg Documented by: Furosemide (Furosemide 40 Mg/4 Ml Vial) 40 mg IVPUSH BID [facility] Last Admin: 05/20/21 08:33 Dose: 40 mg Documented by: Furosemide (Furosemide 40 Mg/4 Ml Vial) 60 mg IVPUSH BIDDIURETIC [facility] Last Admin: 05/22/21 05:41 Dose: 60 mg Documented by: Heparin Sodium (Porcine) (Heparin Sodium 5,000 Units/Ml Vial) 5,000 units SUBCUT Q8H [facility] Last Admin: 05/19/21 22:11 Dose: Not Given Documented by: Magnesium Sulfate 4 gm/ Premix 50 mls @ 12.5 mls/hr IV ONETIME ONE Stop: 05/19/21 17:37 Last Admin: 05/19/21 14:42 Dose: 12.5 mls/hr Documented by: Insulin Glargine (Insulin Glargine,Hum.Rec.Anlog 100 Unit/Ml 3 Ml Pen) 35 unit SUBCUT BID [facility] Last Admin: 05/20/21 09:30 Dose: Not Given Documented by: Insulin Glargine (Insulin Glargine,Hum.Rec.Anlog 100 Unit/Ml 3 Ml Pen) 10 unit SUBCUT ONETIME ONE Stop: 05/20/21 13:31 Last Admin: 05/20/21 13:37 Dose: 10 units Documented by: Losartan Potassium (Losartan 50 Mg Tab) 50 mg PO DAILY [facility] Last Admin: 05/20/21 08:33 Dose: 50 mg Documented by: Magnesium Hydroxide (Magnesium Hydroxide 400 Mg/5 Ml Susp 30 Ml Cup) 30 ml PO ONETIME ONE Stop: 05/21/21 06:52 Last Admin: 05/21/21 07:26 Dose: 30 ml Documented by: - Exam Quality Assessment: Supplemental Oxygen (2 L per nasal cannula), DVT Prophylaxis (Heparin) General: Alert, Oriented, Cooperative, No Acute Distress HEENT: Pupils Equal, Mucous Membr. Moist/[place] Neck: Supple, Trachea Midline Lungs: Normal Respiratory Effort, Crackles (Bilaterally), Wheezing (Inspiratory and expiratory) Cardiovascular: Regular Rate, Regular Rhythm, Murmurs (Grade 3 systolic murmur) GI/Abdominal Exam: Normal Bowel Sounds, Soft, Non-Tender, No Distention (Female) Exam: Deferred Back Exam: Normal Inspection Extremities: Normal Inspection, Normal Range of Motion, Non-Tender, Pedal Edema Peripheral Pulses: 2+: Radial (L), Radial (R) Skin: Warm, Dry, Intact Neurological: No New Focal Deficit Psy/Mental Status: Alert, Normal Affect, Normal Mood - Patient Data Lab Results Last 24 hrs: Laboratory Results - last 24 hr 05/22/21 05/22/21 05/23/21 Range/Units 17:07 20:40 04:50 WBC 9.43 (3.98-10.04) K/mm3 RBC 4.03 (3.98-5.22) M/mm3 Hgb 10.9 L (11.2-15.7) gm/dl Hct 35.7 (34.1-44.9) % MCV 88.6 (79.4-94.8) fl MCH 27.0 (25.6-32.2) pg MCHC 30.5 L (32.2-35.5) g/dl RDW Std Deviation 43.3 (36.4-46.3) fL Plt Count 160 L (182-369) K/mm3 MPV 13.1 H (9.4-12.3) fl Neut % (Auto) 64.5 (34.0-71.1) % Lymph % (Auto) 24.0 (19.3-51.7) % Harney % (Auto) 8.2 (4.7-12.5) % Eos % (Auto) 2.9 (0.7-5.8) Baso % (Auto) 0.2 (0.1-1.2) % Neut # (Auto) 6.09 (1.56-6.13) K/mm3 Lymph # (Auto) 2.26 (1.18-3.74) K/mm3 Harney # (Auto) 0.77 H (0.24-0.36) K/mm3 Eos # (Auto) 0.27 (0.04-0.36) K/mm3 Baso # (Auto) 0.02 (0.01-0.08) K/mm3 Sodium (136-145) mEq/L Potassium (3.5-5.1) mEq/L Chloride (98-107) mEq/L Carbon Dioxide (21-32) mEq/L Anion Gap (5-15) BUN (7-18) mg/dL Creatinine (0.55-1.02) mg/dL Est Cr Clr Drug Dosing mL/min Estimated GFR (MDRD) (>60) mL/min BUN/Creatinine Ratio (14-18) Glucose (70-99) mg/dL POC Glucose 142 H 261 H (70-99) mg/dL Calcium (8.5-10.1) mg/dL 05/23/21 05/23/21 05/23/21 Range/Units 04:53 06:24 11:39 WBC (3.98-10.04) K/mm3 RBC (3.98-5.22) M/mm3 Hgb (11.2-15.7) gm/dl Hct (34.1-44.9) % MCV (79.4-94.8) fl MCH (25.6-32.2) pg MCHC (32.2-35.5) g/dl RDW Std Deviation (36.4-46.3) fL Plt Count (182-369) K/mm3 MPV (9.4-12.3) fl Neut % (Auto) (34.0-71.1) % Lymph % (Auto) (19.3-51.7) % Harney % (Auto) (4.7-12.5) % Eos % (Auto) (0.7-5.8) Baso % (Auto) (0.1-1.2) % Neut # (Auto) (1.56-6.13) K/mm3 Lymph # (Auto) (1.18-3.74) K/mm3 Harney # (Auto) (0.24-0.36) K/mm3 Eos # (Auto) (0.04-0.36) K/mm3 Baso # (Auto) (0.01-0.08) K/mm3 Sodium 142 (136-145) mEq/L Potassium 4.4 (3.5-5.1) mEq/L Chloride 103 (98-107) mEq/L Carbon Dioxide 33 H (21-32) mEq/L Anion Gap 10.4 (5-15) BUN 43 H (7-18) mg/dL Creatinine 1.9 H (0.55-1.02) mg/dL Est Cr Clr Drug Dosing 24.09 mL/min Estimated GFR (MDRD) 26 (>60) mL/min BUN/Creatinine Ratio 22.6 H (14-18) Glucose 121 H (70-99) mg/dL POC Glucose 116 H 180 H (70-99) mg/dL Calcium 8.2 L (8.5-10.1) mg/dL Result Diagrams: 05/23/21 04:50 05/23/21 04:53 Sepsis Event Note - Evaluation Sepsis Screening Result: No Definite Risk - Focused Exam Vital Signs: Vital Signs Temp Pulse Resp BP Pulse Ox Pulse Ox 05/23/21 09:27 96 05/23/21 08:27 98.2 F 75 23 H 139/89 89 L 05/23/21 06:27 130/73 05/23/21 04:11 98.1 F 73 20 100/58 L 94 L - Problem List & Annotations (1) INDIRA (acute kidney injury) SNOMED Code(s): 40452973, 11900975 Code(s): N17.9 - ACUTE KIDNEY FAILURE, UNSPECIFIED Status: Acute Priority: High Current Visit: Yes (2) Acute hypoxemic respiratory failure SNOMED Code(s): 236452850 Code(s): J96.01 - ACUTE RESPIRATORY FAILURE WITH HYPOXIA Status: Acute Priority: High Current Visit: Yes (3) Elevated troponin SNOMED Code(s): 862528020, 421095942, 783194397 Code(s): R77.8 - OTHER SPECIFIED ABNORMALITIES OF PLASMA PROTEINS Status: Acute Priority: Medium Current Visit: Yes (4) Suspected CHF (congestive heart failure) SNOMED Code(s): 707607580, 015079352 Code(s): R09.89 - OT SYMPTOMS AND SIGNS INVOLVING THE CIRC AND RESP SYSTEMS Status: Acute Priority: High Current Visit: Yes (5) CKD (chronic kidney disease) stage 3, GFR 30-59 ml/min SNOMED Code(s): 667024039 Code(s): N18.30 - CHRONIC KIDNEY DISEASE, STAGE 3 UNSPECIFIED Status: Chronic Priority: High Current Visit: Yes Qualifiers: Chronic kidney disease stage 3 subtype: stage 3b (GFR 30-44) Qualified C ode(s): N18.32 - Chronic kidney disease, stage 3b (6) Obesity SNOMED Code(s): 612037067, 205997173 Code(s): E66.9 - OBESITY, UNSPECIFIED Status: Chronic Priority: Medium Current Visit: Yes Qualifiers: Obesity type: unspecified obesity type Obesity classification: adult class 3 (BMI >= 40) Serious obesity comorbidity presence: with serious comorbidity Body mass index: BMI 40.0-44.9 Qualified Code(s): E66.01 - Morbid (severe) obesity due to excess calories; Z68.41 - Body mass index [BMI] 40.0-44.9, adult (7) Type II diabetes mellitus SNOMED Code(s): 47666578 Code(s): E11.9 - TYPE 2 DIABETES MELLITUS WITHOUT COMPLICATIONS Status: Chronic Priority: High Current Visit: Yes Qualifiers: Diabetes mellitus longterm insulin use: with terminal computer operator use Diabetes mellitus complication status: with other specified complication Qualified Code(s): E11.69 - Type 2 diabetes mellitus with other specified complication; Z79.4 - termite treater helper (current) use of insulin - Problem List Review Problem List Initiated/Reviewed/Updated: Yes - My Orders Last 24 Hours: My Active Orders 05/24/21 05:11 CBC WITH AUTO DIFF [HEME] DAILY COMPREHENSIVE METABOLIC PN,CMP [CHEM] DAILY MAGNESIUM [CHEM] DAILY 05/25/21 05:11 CBC WITH AUTO DIFF [HEME] DAILY COMPREHENSIVE METABOLIC PN,CMP [CHEM] DAILY MAGNESIUM [CHEM] DAILY 05/26/21 05:11 CBC WITH AUTO DIFF [HEME] DAILY COMPREHENSIVE METABOLIC PN,CMP [CHEM] DAILY MAGNESIUM [CHEM] DAILY 05/27/21 05:11 CBC WITH AUTO DIFF [HEME] DAILY COMPREHENSIVE METABOLIC PN,CMP [CHEM] DAILY MAGNESIUM [CHEM] DAILY - Assessment Assessment:: 05/20/2021 This is a 65-year-old female who was admitted to the floor for concerns over new onset CHF. Patient is requiring 3 L of oxygen currently but states she does not feel too short of breath with this. She is currently receiving 40 mg IV push daily Lasix and has not had too much output with this. We will therefore increase her to 60 mg twice daily IV push with diuretic scheduling. Will monitor I's and O's and daily weights. She does report a history of asthma and so we will add in as needed albuterol MDI and DuoNeb's. RT is consulted and working on weaning patient. Echocardiogram was obtained today and is pending. A1c was 7.9 and we will continue to hold her Metformin and prescribe long-acting insulin per her home dosing and also sliding scale insulin as needed. Troponin has improved from admission to 0.162. This is likely secondary to demand isc hemia. BUN is increased to 25 and creatinine is 1.9. GFR is 26. Glucose has been between 202 and 207. Magnesium is 2.2. proBNP on recheck was 6926. We will hold the patient's Cozaar and continue to diurese. Will address plan pending on renal stability and output. Length of stay likely 2-3 more days. 05/21/2021 65-year-old female admitted to the floor for possible CHF exacerbation. No known history of CHF but it is now confirmed by echocardiogram with a EF of 45% and global mildly decreased left ventricular systolic function. There is also concentric left ventricular hypertrophy and a severe aortic stenosis noted. Patient will need to follow-up with cardiology regarding her aortic stenosis after discharge. She continues to have rather unimpressive urine output. She is down 5 pounds from admission. There is no leukocytosis and her hemoglobin is 12.0 with a hematocrit of 39.0. Platelets are 140. Sodium has increased to 140. Potassium 4.3. Chloride 103. Carbon dioxide 30. Anion gap is 11.3. BUN is 39. Creatinine 2.2. GFR is 22. Glucose has been between 152 and 222. Calcium is 7.9. Troponin has improved to 0.146. Suspect this is demand ischemia. She will be placed on BiPAP nocturnally and as needed with naps. Otherwise she reports she feels better today. No acute concerns. Plan will be to continue diuresis and wean with oxygen as patient tolerates. She is currently on 3 L. Likely discharge in 2 to 3 days pending improvement. 05/23/2021 65-year-old female who admitted to the medical floor for concerns of possible congestive heart failure. No history of congestive heart failure however echo showed an EF of 45% and decreased left ventricular systolic function with severe aortic stenosis. Again, patient will be recommended to follow-up with order detailer regarding aortic stenosis once discharged from the hospital. Lasix was increased to 80 mg twice daily yesterday. Patient is down 3 pounds in the past 24 hours and -1605 mL per charted intake and output. She is refusing her BiPAP. She continues on oxygen at 2 L per nasal cannula. Continues to have crackles noted in her lungs as well as inspiratory and expiratory wheezing. Denies any complaints. Labs are essentially unchanged other than creatinine down slightly. We will continue to diurese the patient and wean the oxygen. Patient will likely be here through the weekend. - Plan Plan:: 65-year-old female who presents to the emergency department with a chief complaint of cough and difficulty breathing found to be hypoxic requiring supplemental oxygen. Referred for CHF exacerbation. 1. Acute hypoxic respiratory failure. Secondary to acute CHF exacerbation. In the setting of severe aortic stenosis. Continue Lasix 80 mg IV push twice daily. Fluid restriction of 2 L/day. Daily weights by standing scale only. RT consult. Bronchodilators as necessary. Wean supplemental oxygen as tolerated. Daily ambulation saturation trials. Nocturnal BiPAP. 2. Acute CHF exacerbation. Plan as above. Echo completed. Follow-up with cardiology regarding aortic stenosis once she is discharged from the hospital 3. Type 2 diabetes mellitus. Hold metformin. Continue hospital hyperglycemia protocol. Check hemoglobin A1c. Dietitian and diabetes education. 3. Mild elevated troponin. Likely secondary to supply demand mismatch in the setting of hypoxia. Patient without chest pain. No EKG changes. No need for stomach anticoagulation currently. 4. CKD stage III nearly stage IV. Intermittent monitoring of labs. Avoid nephrotoxins. Renally dose medications if appropriate. Holding Metformin. Monitor volume status as she is requiring active diuresis. CODE STATUS: Full code. DVT prophylaxis with heparin and SCDs. <Horace Vega Jr - Last Filed: 05/23/21 19:35> - Patient Data Vitals - Most Recent: Last Vital Signs Temp 97.5 F 05/23/21 16:26 Pulse 70 05/23/21 16:26 Resp 18 05/23/21 16:26 BP 107/71 05/23/21 16:26 Pulse Ox 93 L 05/23/21 17:00 I&O - Last 24 Hours: Intake & Output 05/23/21 05/23/21 05/23/21 06:59 14:59 22:59 Intake Total 400 600 Output Total 1150 2200 Balance -750 -1600 Lab Results Last 24 Hours: Laboratory Results - last 24 hr 05/22/21 05/23/21 05/23/21 Range/Units 20:40 04:50 04:53 WBC 9.43 (3.98-10.04) K/mm3 RBC 4.03 (3.98-5.22) M/mm3 Hgb 10.9 L (11.2-15.7) gm/dl Hct 35.7 (34.1-44.9) % MCV 88.6 (79.4-94.8) fl MCH 27.0 (25.6-32.2) pg MCHC 30.5 L (32.2-35.5) g/dl RDW Std Deviation 43.3 (36.4-46.3) fL Plt Count 160 L (182-369) K/mm3 MPV 13.1 H (9.4-12.3) fl Neut % (Auto) 64.5 (34.0-71.1) % Lymph % (Auto) 24.0 (19.3-51.7) % Harney % (Auto) 8.2 (4.7-12.5) % Eos % (Auto) 2.9 (0.7-5.8) Baso % (Auto) 0.2 (0.1-1.2) % Neut # (Auto) 6.09 (1.56-6.13) K/mm3 Lymph # (Auto) 2.26 (1.18-3.74) K/mm3 Harney # (Auto) 0.77 H (0.24-0.36) K/mm3 Eos # (Auto) 0.27 (0.04-0.36) K/mm3 Baso # (Auto) 0.02 (0.01-0.08) K/mm3 Sodium 142 (136-145) mEq/L Potassium 4.4 (3.5-5.1) mEq/L Chloride 103 (98-107) mEq/L Carbon Dioxide 33 H (21-32) mEq/L Anion Gap 10.4 (5-15) BUN 43 H (7-18) mg/dL Creatinine 1.9 H (0.55-1.02) mg/dL Est Cr Clr Drug Dosing 24.09 mL/min Estimated GFR (MDRD) 26 (>60) mL/min BUN/Creatinine Ratio 22.6 H (14-18) Glucose 121 H (70-99) mg/dL POC Glucose 261 H (70-99) mg/dL Calcium 8.2 L (8.5-10.1) mg/dL 05/23/21 05/23/21 05/23/21 Range/Units 06:24 11:39 16:27 WBC (3.98-10.04) K/mm3 RBC (3.98-5.22) M/mm3 Hgb (11.2-15.7) gm/dl Hct (34.1-44.9) % MCV (79.4-94.8) fl MCH (25.6-32.2) pg MCHC (32.2-35.5) g/dl RDW Std Deviation (36.4-46.3) fL Plt Count (182-369) K/mm3 MPV (9.4-12.3) fl Neut % (Auto) (34.0-71.1) % Lymph % (Auto) (19.3-51.7) % Harney % (Auto) (4.7-12.5) % Eos % (Auto) (0.7-5.8) Baso % (Auto) (0.1-1.2) % Neut # (Auto) (1.56-6.13) K/mm3 Lymph # (Auto) (1.18-3.74) K/mm3 Harney # (Auto) (0.24-0.36) K/mm3 Eos # (Auto) (0.04-0.36) K/mm3 Baso # (Auto) (0.01-0.08) K/mm3 Sodium (136-145) mEq/L Potassium (3.5-5.1) mEq/L Chloride (98-107) mEq/L Carbon Dioxide (21-32) mEq/L Anion Gap (5-15) BUN (7-18) mg/dL Creatinine (0.55-1.02) mg/dL Est Cr Clr Drug Dosing mL/min Estimated GFR (MDRD) (>60) mL/min BUN/Creatinine Ratio (14-18) Glucose (70-99) mg/dL POC Glucose 116 H 180 H 149 H (70-99) mg/dL Calcium (8.5-10.1) mg/dL Med Orders - Current: Current Medications Acetaminophen (Acetaminophen 325 Mg Tab) 650 mg PO Q4H PRN PRN Reason: Pain (Mild 1-3)/fever Albuterol (Albuterol 6.7 Gm Inhaler) 0 gm INH Q2H PRN PRN Reason: SOB/Wheezing Albuterol/Ipratropium (Albuterol/Ipratropium 3.0-0.5 Mg/3 Ml Neb Soln) 3 ml NEB QIDRT PRN PRN Reason: SOB/Wheezing Last Admin: 05/23/21 09:27 Dose: 3 ml Documented by: Aspirin (Aspirin 81 Mg Tab.Ec) 81 mg PO DAILY RAUDEL Last Admin: 05/23/21 08:37 Dose: 81 mg Documented by: Docusate Sodium (Docusate Sodium 100 Mg Cap) 100 mg PO BID PRN PRN Reason: Constipation Last Admin: 05/23/21 16:53 Dose: 100 mg Documented by: Furosemide (Furosemide 40 Mg/4 Ml Vial) 80 mg IVPUSH BIDDIURETIC [facility] Last Admin: 05/23/21 14:14 Dose: 80 mg Documented by: Heparin Sodium (Porcine) (Heparin Sodium 5,000 Units/Ml Vial) 5,000 units SUBCUT Q8H [facility] Last Admin: 05/23/21 12:00 Dose: 5,000 units Documented by: Insulin Glargine (Insulin Glargine,Hum.Rec.Anlog 100 Unit/Ml 3 Ml Pen) 10 unit SUBCUT DAILY [facility] Last Admin: 05/23/21 08:37 Dose: 10 unit Documented by: Insulin Human Lispro (Insulin Lispro 100 Unit/Ml 3 Ml Kwikpen) 0 unit SUBCUT QIDACANDBED [facility]; Protocol Last Admin: 05/23/21 17:04 Dose: Not Given Documented by: Ondansetron HCl (Ondansetron 4 Mg Tab.Dis) 4 mg PO Q4H PRN PRN Reason: nausea, able to take PO Ondansetron HCl (Ondansetron 4 Mg/2 Ml Sdv) 4 mg IV Q4H PRN PRN Reason: Nausea/Vomiting Simvastatin (Simvastatin 40 Mg Tab) 40 mg PO BEDTIME [facility] Last Admin: 05/22/21 20:48 Dose: 40 mg Documented by: Sodium Chloride (Sodium Chloride 0.9% 10 Ml Syringe) 10 ml FLUSH ASDIRECTED PRN PRN Reason: Keep Vein Open Last Admin: 05/19/21 14:01 Dose: 10 ml Documented by: Discontinued Medications Albuterol (Albuterol 0.083% 2.5 Mg/3 Ml Neb Soln) 2.5 mg NEB ONETIME ONE Stop: 05/19/21 12:28 Last Admin: 05/19/21 12:52 Dose: 2.5 mg Documented by: Furosemide (Furosemide 40 Mg/4 Ml Vial) 40 mg IVPUSH NOW ONE Stop: 05/19/21 13:00 Last Admin: 05/19/21 14:01 Dose: 40 mg Documented by: Furosemide (Furosemide 40 Mg/4 Ml Vial) 40 mg IVPUSH BID [facility] Last Admin: 05/20/21 08:33 Dose: 40 mg Documented by: Furosemide (Furosemide 40 Mg/4 Ml Vial) 60 mg IVPUSH BIDDIURETIC [facility] Last Admin: 05/22/21 05:41 Dose: 60 mg Documented by: Heparin Sodium (Porcine) (Heparin Sodium 5,000 Units/Ml Vial) 5,000 units SUBCUT Q8H [facility] Last Admin: 05/19/21 22:11 Dose: Not Given Documented by: Magnesium Sulfate 4 gm/ Premix 50 mls @ 12.5 mls/hr IV ONETIME ONE Stop: 05/19/21 17:37 Last Admin: 05/19/21 14:42 Dose: 12.5 mls/hr Documented by: Insulin Glargine (Insulin Glargine,Hum.Rec.Anlog 100 Unit/Ml 3 Ml Pen) 35 unit SUBCUT BID [facility] Last Admin: 05/20/21 09:30 Dose: Not Given Documented by: Insulin Glargine (Insulin Glargine,Hum.Rec.Anlog 100 Unit/Ml 3 Ml Pen) 10 unit SUBCUT ONETIME ONE Stop: 05/20/21 13:31 Last Admin: 05/20/21 13:37 Dose: 10 units Documented by: Losartan Potassium (Losartan 50 Mg Tab) 50 mg PO DAILY [facility] Last Admin: 05/20/21 08:33 Dose: 50 mg Documented by: Magnesium Hydroxide (Magnesium Hydroxide 400 Mg/5 Ml Susp 30 Ml Cup) 30 ml PO ONETIME ONE Stop: 05/21/21 06:52 Last Admin: 05/21/21 07:26 Dose: 30 ml Documented by: - Patient Data Lab Results Last 24 hrs: Laboratory Results - last 24 hr 05/22/21 05/23/21 05/23/21 Range/Units 20:40 04:50 04:53 WBC 9.43 (3.98-10.04) K/mm3 RBC 4.03 (3.98-5.22) M/mm3 Hgb 10.9 L (11.2-15.7) gm/dl Hct 35.7 (34.1-44.9) % MCV 88.6 (79.4-94.8) fl MCH 27.0 (25.6-32.2) pg MCHC 30.5 L (32.2-35.5) g/dl RDW Std Deviation 43.3 (36.4-46.3) fL Plt Count 160 L (182-369) K/mm3 MPV 13.1 H (9.4-12.3) fl Neut % (Auto) 64.5 (34.0-71.1) % Lymph % (Auto) 24.0 (19.3-51.7) % [place] % (Auto) 8.2 (4.7-12.5) % Eos % (Auto) 2.9 (0.7-5.8) Baso % (Auto) 0.2 (0.1-1.2) % Neut # (Auto) 6.09 (1.56-6.13) K/mm3 Lymph # (Auto) 2.26 (1.18-3.74) K/mm3 [place] # (Auto) 0.77 H (0.24-0.36) K/mm3 Eos # (Auto) 0.27 (0.04-0.36) K/mm3 Baso # (Auto) 0.02 (0.01-0.08) K/mm3 Sodium 142 (136-145) mEq/L Potassium 4.4 (3.5-5.1) mEq/L Chloride 103 (98-107) mEq/L Carbon Dioxide 33 H (21-32) mEq/L Anion Gap 10.4 (5-15) BUN 43 H (7-18) mg/dL Creatinine 1.9 H (0.55-1.02) mg/dL Est Cr Clr Drug Dosing 24.09 mL/min Estimated GFR (MDRD) 26 (>60) mL/min BUN/Creatinine Ratio 22.6 H (14-18) Glucose 121 H (70-99) mg/dL POC Glucose 261 H (70-99) mg/dL Calcium 8.2 L (8.5-10.1) mg/dL 05/23/21 05/23/21 05/23/21 Range/Units 06:24 11:39 16:27 WBC (3.98-10.04) K/mm3 RBC (3.98-5.22) M/mm3 Hgb (11.2-15.7) gm/dl Hct (34.1-44.9) % MCV (79.4-94.8) fl MCH (25.6-32.2) pg MCHC (32.2-35.5) g/dl RDW Std Deviation (36.4-46.3) fL Plt Count (182-369) K/mm3 MPV (9.4-12.3) fl Neut % (Auto) (34.0-71.1) % Lymph % (Auto) (19.3-51.7) % [place] % (Auto) (4.7-12.5) % Eos % (Auto) (0.7-5.8) Baso % (Auto) (0.1-1.2) % Neut # (Auto) (1.56-6.13) K/mm3 Lymph # (Auto) (1.18-3.74) K/mm3 [place] # (Auto) (0.24-0.36) K/mm3 Eos # (Auto) (0.04-0.36) K/mm3 Baso # (Auto) (0.01-0.08) K/mm3 Sodium (136-145) mEq/L Potassium (3.5-5.1) mEq/L Chloride (98-107) mEq/L Carbon Dioxide (21-32) mEq/L Anion Gap (5-15) BUN (7-18) mg/dL Creatinine (0.55-1.02) mg/dL Est Cr Clr Drug Dosing mL/min Estimated GFR (MDRD) (>60) mL/min BUN/Creatinine Ratio (14-18) Glucose (70-99) mg/dL POC Glucose 116 H 180 H 149 H (70-99) mg/dL Calcium (8.5-10.1) mg/dL Result Diagrams: 05/23/21 04:50 05/23/21 04:53 Sepsis Event Note - Focused Exam Vital Signs: Vital Signs Temp Pulse Resp BP Pulse Ox Pulse Ox 05/23/21 17:00 93 L 05/23/21 16:26 97.5 F 70 18 107/71 93 L 05/23/21 11:42 97.7 F 76 24 H 122/63 92 L 05/23/21 09:27 96 05/23/21 08:27 98.2 F 75 23 H 139/89 89 L - My Orders Last 24 Hours: My Active Orders 05/23/21 Dinner Consistent Carbohydrate Diet [DIET] - Plan Plan:: Case discussed in full. Agree with evaluation, assessment and plan.
[2021-05-23] MEDS: Docusate Sodium 100 MG Cap PO PRN (16:53)
[2021-05-23] MEDS: Simvastatin 40 MG Tab PO SCH (21:24)
[2021-05-24] MEDS: Heparin Sodium 5,000 Units/ML Vial SUBCUT SCH ×3 (05:15→22:18)
[2021-05-24] MEDS: Furosemide 40 MG/4 ML VIAL IVPUSH SCH ×2 (06:15→14:11)
[2021-05-24] MEDS: Insulin Lispro 100 Unit/ML 3 ML KwikPen SUBCUT SCH ×4 (06:50→22:22)
[2021-05-24] MEDS: Docusate Sodium 100 MG Cap PO PRN (09:28)
[2021-05-24] MEDS: Aspirin 81 MG Tab.EC PO SCH (09:28)
[2021-05-24] MEDS: Insulin Glargine,Hum.Rec.Anlog 100 UNIT/ML 3 ML Pen SUBCUT SCH (09:29)
[2021-05-24] MEDS ORDERED: Promethazine 12.5 MG in Sodium Chloride 0.9% 50 ML IV PRN (09:34)
[2021-05-24] MEDS: guaiFENesin 100 MG/5 ML Soln 10 ML UD Cup PO SCH ×2 (09:51→17:39)
[2021-05-24] MEDS: Azithromycin 250 MG Tab PO SCH (09:51)
--- NOTE | 2021-05-24 17:12 | PCM.PN ---
- General Info Date of Service: 05/24/21 Admission Dx/Problem (Free Text): Admission Diagnosis/Problem Admission Diagnosis/Problem CHF, Congestive heart failure Subjective Update: Patient complains of cough with yellowish sputum. She otherwise denies fever, chills, nausea, vomiting, or diarrhea. She is on 3 L She is not on home oxygen Creatinine 1.9. Creatinine 1.2 on November 22, 2019. - Review of Systems Systems Review Comment:: Positive for shortness of breath and cough with yellowish sputum. All other systems were reviewed and negative. - Patient Data Vitals - Most Recent: Last Vital Signs Temp 36.6 C 05/24/21 03:15 Pulse 77 05/24/21 03:15 Resp 20 05/24/21 03:15 BP 153/67 H 05/24/21 03:15 Pulse Ox 91 L 05/24/21 12:30 Weight - Most Recent: 103.827 kg I&O - Last 24 Hours: Intake & Output 05/24/21 05/24/21 05/24/21 06:59 14:59 22:59 Intake Total 50 Output Total 0 625 Balance 50 -625 Lab Results Last 24 Hours: Laboratory Results - last 24 hr 05/23/21 05/24/21 05/24/21 Range/Units 21:33 05:23 05:33 WBC 9.26 (3.98-10.04) K/mm3 RBC 4.31 (3.98-5.22) M/mm3 Hgb 11.7 (11.2-15.7) gm/dl Hct 37.9 (34.1-44.9) % MCV 87.9 (79.4-94.8) fl MCH 27.1 (25.6-32.2) pg MCHC 30.9 L (32.2-35.5) g/dl RDW Std Deviation 42.9 (36.4-46.3) fL Plt Count 180 L (182-369) K/mm3 MPV 12.7 H (9.4-12.3) fl Neut % (Auto) 63.2 (34.0-71.1) % Lymph % (Auto) 24.1 (19.3-51.7) % [place] % (Auto) 8.4 (4.7-12.5) % Eos % (Auto) 3.7 (0.7-5.8) Baso % (Auto) 0.4 (0.1-1.2) % Neut # (Auto) 5.85 (1.56-6.13) K/mm3 Lymph # (Auto) 2.23 (1.18-3.74) K/mm3 [place] # (Auto) 0.78 H (0.24-0.36) K/mm3 Eos # (Auto) 0.34 (0.04-0.36) K/mm3 Baso # (Auto) 0.04 (0.01-0.08) K/mm3 Sodium 140 (136-145) mEq/L Potassium 4.1 (3.5-5.1) mEq/L Chloride 100 (98-107) mEq/L Carbon Dioxide 33 H (21-32) mEq/L Anion Gap 11.1 (5-15) BUN 43 H (7-18) mg/dL Creatinine 1.9 H (0.55-1.02) mg/dL Est Cr Clr Drug Dosing 24.09 mL/min Estimated GFR (MDRD) 26 (>60) mL/min BUN/Creatinine Ratio 22.6 H (14-18) Glucose 144 H (70-99) mg/dL POC Glucose 283 H (70-99) mg/dL Calcium 8.3 L (8.5-10.1) mg/dL Magnesium 2.6 H (1.8-2.4) mg/dL Total Bilirubin 0.4 (0.2-1.0) mg/dL AST 12 L (15-37) U/L ALT 12 L (14-59) U/L Alkaline Phosphatase 58 (46-116) U/L Total Protein 6.0 L (6.4-8.2) g/dl Albumin 2.4 L (3.4-5.0) g/dl Globulin 3.6 gm/dL Albumin/Globulin Ratio 0.7 L (1-2) 05/24/21 05/24/21 05/24/21 Range/Units 06:08 11:34 16:28 WBC (3.98-10.04) K/mm3 RBC (3.98-5.22) M/mm3 Hgb (11.2-15.7) gm/dl Hct (34.1-44.9) % MCV (79.4-94.8) fl MCH (25.6-32.2) pg MCHC (32.2-35.5) g/dl RDW Std Deviation (36.4-46.3) fL Plt Count (182-369) K/mm3 MPV (9.4-12.3) fl Neut % (Auto) (34.0-71.1) % Lymph % (Auto) (19.3-51.7) % [place] % (Auto) (4.7-12.5) % Eos % (Auto) (0.7-5.8) Baso % (Auto) (0.1-1.2) % Neut # (Auto) (1.56-6.13) K/mm3 Lymph # (Auto) (1.18-3.74) K/mm3 [place] # (Auto) (0.24-0.36) K/mm3 Eos # (Auto) (0.04-0.36) K/mm3 Baso # (Auto) (0.01-0.08) K/mm3 Sodium (136-145) mEq/L Potassium (3.5-5.1) mEq/L Chloride (98-107) mEq/L Carbon Dioxide (21-32) mEq/L Anion Gap (5-15) BUN (7-18) mg/dL Creatinine (0.55-1.02) mg/dL Est Cr Clr Drug Dosing mL/min Estimated GFR (MDRD) (>60) mL/min BUN/Creatinine Ratio (14-18) Glucose (70-99) mg/dL POC Glucose 126 H 274 H 160 H (70-99) mg/dL Calcium (8.5-10.1) mg/dL Magnesium (1.8-2.4) mg/dL Total Bilirubin (0.2-1.0) mg/dL AST (15-37) U/L ALT (14-59) U/L Alkaline Phosphatase (46-116) U/L Total Protein (6.4-8.2) g/dl Albumin (3.4-5.0) g/dl Globulin gm/dL Albumin/Globulin Ratio (1-2) Med Orders - Current: Current Medications Acetaminophen (Acetaminophen 325 Mg Tab) 650 mg PO Q4H PRN PRN Reason: Pain (Mild 1-3)/fever Albuterol (Albuterol 6.7 Gm Inhaler) 0 gm INH Q2H PRN PRN Reason: SOB/Wheezing Albuterol/Ipratropium (Albuterol/Ipratropium 3.0-0.5 Mg/3 Ml Neb Soln) 3 ml NEB QIDRT PRN PRN Reason: SOB/Wheezing Last Admin: 05/23/21 21:01 Dose: 3 ml Documented by: Aspirin (Aspirin 81 Mg Tab.Ec) 81 mg PO DAILY [facility] Last Admin: 05/24/21 09:28 Dose: 81 mg Documented by: Azithromycin (Azithromycin 250 Mg Tab) 500 mg PO DAILY [facility] Stop: 05/29/21 09:46 Last Admin: 05/24/21 09:51 Dose: 500 mg Documented by: Docusate Sodium (Docusate Sodium 100 Mg Cap) 100 mg PO BID PRN PRN Reason: Constipation Last Admin: 05/24/21 09:28 Dose: 100 mg Documented by: Furosemide (Furosemide 40 Mg/4 Ml Vial) 80 mg IVPUSH BIDDIURETIC [facility] Last Admin: 05/24/21 14:11 Dose: 80 mg Documented by: Guaifenesin (Guaifenesin 100 Mg/5 Ml Soln 10 Ml Ud Cup) 200 mg PO Q8H [facility] Last Admin: 05/24/21 09:51 Dose: 200 mg Documented by: Heparin Sodium (Porcine) (Heparin Sodium 5,000 Units/Ml Vial) 5,000 units SUBCUT Q8H [facility] Last Admin: 05/24/21 14:12 Dose: 5,000 units Documented by: Promethazine HCl 12.5 mg/ (Sodium Chloride) 50.5 mls @ 100 mls/hr IV Q6H PRN PRN Reason: Nausea/Vomiting Insulin Glargine (Insulin Glargine,Hum.Rec.Anlog 100 Unit/Ml 3 Ml Pen) 10 unit SUBCUT DAILY [facility] Last Admin: 05/24/21 09:29 Dose: 10 unit Documented by: Insulin Human Lispro (Insulin Lispro 100 Unit/Ml 3 Ml Kwikpen) 0 unit SUBCUT QIDACANDBED [facility]; Protocol Last Admin: 05/24/21 12:13 Dose: 6 units Documented by: Simvastatin (Simvastatin 40 Mg Tab) 40 mg PO BEDTIME [facility] Last Admin: 05/23/21 21:24 Dose: 40 mg Documented by: Sodium Chloride (Sodium Chloride 0.9% 10 Ml Syringe) 10 ml FLUSH ASDIRECTED PRN PRN Reason: Keep Vein Open Last Admin: 05/19/21 14:01 Dose: 10 ml Documented by: Discontinued Medications Albuterol (Albuterol 0.083% 2.5 Mg/3 Ml Neb Soln) 2.5 mg NEB ONETIME ONE Stop: 05/19/21 12:28 Last Admin: 05/19/21 12:52 Dose: 2.5 mg Documented by: Furosemide (Furosemide 40 Mg/4 Ml Vial) 40 mg IVPUSH NOW ONE Stop: 05/19/21 13:00 Last Admin: 05/19/21 14:01 Dose: 40 mg Documented by: Furosemide (Furosemide 40 Mg/4 Ml Vial) 40 mg IVPUSH BID [facility] Last Admin: 05/20/21 08:33 Dose: 40 mg Documented by: Furosemide (Furosemide 40 Mg/4 Ml Vial) 60 mg IVPUSH BIDDIURETIC [facility] Last Admin: 05/22/21 05:41 Dose: 60 mg Documented by: Heparin Sodium (Porcine) (Heparin Sodium 5,000 Units/Ml Vial) 5,000 units SUBCUT Q8H [facility] Last Admin: 05/19/21 22:11 Dose: Not Given Documented by: Magnesium Sulfate 4 gm/ Premix 50 mls @ 12.5 mls/hr IV ONETIME ONE Stop: 05/19/21 17:37 Last Admin: 05/19/21 14:42 Dose: 12.5 mls/hr Documented by: Insulin Glargine (Insulin Glargine,Hum.Rec.Anlog 100 Unit/Ml 3 Ml Pen) 35 unit SUBCUT BID [facility] Last Admin: 05/20/21 09:30 Dose: Not Given Documented by: Insulin Glargine (Insulin Glargine,Hum.Rec.Anlog 100 Unit/Ml 3 Ml Pen) 10 unit SUBCUT ONETIME ONE Stop: 05/20/21 13:31 Last Admin: 05/20/21 13:37 Dose: 10 units Documented by: Losartan Potassium (Losartan 50 Mg Tab) 50 mg PO DAILY [facility] Last Admin: 05/20/21 08:33 Dose: 50 mg Documented by: Magnesium Hydroxide (Magnesium Hydroxide 400 Mg/5 Ml Susp 30 Ml Cup) 30 ml PO ONETIME ONE Stop: 05/21/21 06:52 Last Admin: 05/21/21 07:26 Dose: 30 ml Documented by: Ondansetron HCl (Ondansetron 4 Mg Tab.Dis) 4 mg PO Q4H PRN PRN Reason: nausea, able to take PO Ondansetron HCl (Ondansetron 4 Mg/2 Ml Sdv) 4 mg IV Q4H PRN PRN Reason: Nausea/Vomiting - Exam General: Alert, Oriented, Cooperative HEENT: Pupils Equal, Pupils Reactive, EOMI Neck: Supple, Trachea Midline, No JVD, No Thyromegaly Lungs: Normal Respiratory Effort, Decreased Breath Sounds, Rales Cardiovascular: Regular Rate, Regular Rhythm GI/Abdominal Exam: Normal Bowel Sounds, Soft, Non-Tender, No Organomegaly Extremities: Normal Inspection, Normal Range of Motion, Non-Tender Skin: Warm, Dry, Intact Neurological: No New Focal Deficit, Normal Speech, Normal Tone, Strength Equal Bilateral, Reflexes Equal Bilateral, Sensation Intact Psy/Mental Status: Alert, Normal Affect, Normal Mood - Patient Data Lab Results Last 24 hrs: Laboratory Results - last 24 hr 05/23/21 05/24/21 05/24/21 Range/Units 21:33 05:23 05:33 WBC 9.26 (3.98-10.04) K/mm3 RBC 4.31 (3.98-5.22) M/mm3 Hgb 11.7 (11.2-15.7) gm/dl Hct 37.9 (34.1-44.9) % MCV 87.9 (79.4-94.8) fl MCH 27.1 (25.6-32.2) pg MCHC 30.9 L (32.2-35.5) g/dl RDW Std Deviation 42.9 (36.4-46.3) fL Plt Count 180 L (182-369) K/mm3 MPV 12.7 H (9.4-12.3) fl Neut % (Auto) 63.2 (34.0-71.1) % Lymph % (Auto) 24.1 (19.3-51.7) % [place] % (Auto) 8.4 (4.7-12.5) % Eos % (Auto) 3.7 (0.7-5.8) Baso % (Auto) 0.4 (0.1-1.2) % Neut # (Auto) 5.85 (1.56-6.13) K/mm3 Lymph # (Auto) 2.23 (1.18-3.74) K/mm3 [place] # (Auto) 0.78 H (0.24-0.36) K/mm3 Eos # (Auto) 0.34 (0.04-0.36) K/mm3 Baso # (Auto) 0.04 (0.01-0.08) K/mm3 Sodium 140 (136-145) mEq/L Potassium 4.1 (3.5-5.1) mEq/L Chloride 100 (98-107) mEq/L Carbon Dioxide 33 H (21-32) mEq/L Anion Gap 11.1 (5-15) BUN 43 H (7-18) mg/dL Creatinine 1.9 H (0.55-1.02) mg/dL Est Cr Clr Drug Dosing 24.09 mL/min Estimated GFR (MDRD) 26 (>60) mL/min BUN/Creatinine Ratio 22.6 H (14-18) Glucose 144 H (70-99) mg/dL POC Glucose 283 H (70-99) mg/dL Calcium 8.3 L (8.5-10.1) mg/dL Magnesium 2.6 H (1.8-2.4) mg/dL Total Bilirubin 0.4 (0.2-1.0) mg/dL AST 12 L (15-37) U/L ALT 12 L (14-59) U/L Alkaline Phosphatase 58 (46-116) U/L Total Protein 6.0 L (6.4-8.2) g/dl Albumin 2.4 L (3.4-5.0) g/dl Globulin 3.6 gm/dL Albumin/Globulin Ratio 0.7 L (1-2) 05/24/21 05/24/21 05/24/21 Range/Units 06:08 11:34 16:28 WBC (3.98-10.04) K/mm3 RBC (3.98-5.22) M/mm3 Hgb (11.2-15.7) gm/dl Hct (34.1-44.9) % MCV (79.4-94.8) fl MCH (25.6-32.2) pg MCHC (32.2-35.5) g/dl RDW Std Deviation (36.4-46.3) fL Plt Count (182-369) K/mm3 MPV (9.4-12.3) fl Neut % (Auto) (34.0-71.1) % Lymph % (Auto) (19.3-51.7) % [place] % (Auto) (4.7-12.5) % Eos % (Auto) (0.7-5.8) Baso % (Auto) (0.1-1.2) % Neut # (Auto) (1.56-6.13) K/mm3 Lymph # (Auto) (1.18-3.74) K/mm3 [place] # (Auto) (0.24-0.36) K/mm3 Eos # (Auto) (0.04-0.36) K/mm3 Baso # (Auto) (0.01-0.08) K/mm3 Sodium (136-145) mEq/L Potassium (3.5-5.1) mEq/L Chloride (98-107) mEq/L Carbon Dioxide (21-32) mEq/L Anion Gap (5-15) BUN (7-18) mg/dL Creatinine (0.55-1.02) mg/dL Est Cr Clr Drug Dosing mL/min Estimated GFR (MDRD) (>60) mL/min BUN/Creatinine Ratio (14-18) Glucose (70-99) mg/dL POC Glucose 126 H 274 H 160 H (70-99) mg/dL Calcium (8.5-10.1) mg/dL Magnesium (1.8-2.4) mg/dL Total Bilirubin (0.2-1.0) mg/dL AST (15-37) U/L ALT (14-59) U/L Alkaline Phosphatase (46-116) U/L Total Protein (6.4-8.2) g/dl Albumin (3.4-5.0) g/dl Globulin gm/dL Albumin/Globulin Ratio (1-2) Result Diagrams: 05/24/21 05:33 05/24/21 05:23 Sepsis Event Note - Evaluation Sepsis Screening Result: No Definite Risk - Focused Exam Vital Signs: Vital Signs Pulse Ox 05/24/21 12:30 91 L - Problem List Review Problem List Initiated/Reviewed/Updated: Yes - My Orders Last 24 Hours: My Active Orders 05/24/21 09:34 Promethazine [Phenergan] 12.5 mg Sodium Chloride 0.9% [Normal Saline] 50 ml IV Q6H 05/24/21 09:45 Azithromycin [Zithromax] 500 mg PO DAILY 05/24/21 10:00 guaiFENesin [Robitussin] 200 mg PO Q8H 05/24/21 11:04 Chest 1V Frontal [CR] Routine - Assessment Assessment:: 05/20/2021 This is a 65-year-old female who was admitted to the floor for concerns over new onset CHF. Patient is requiring 3 L of oxygen currently but states she does not feel too short of breath with this. She is currently receiving 40 mg IV push daily Lasix and has not had too much output with this. We will therefore increase her to 60 mg twice daily IV push with diuretic scheduling. Will monitor I's and O's and daily weights. She does report a history of asthma and so we will add in as needed albuterol MDI and DuoNeb's. RT is consulted and working on weaning patient. Echocardiogram was obtained today and is pending. A1c was 7.9 and we will continue to hold her Metformin and prescribe long-acting insulin per her home dosing and also sliding scale insulin as needed. Troponin has improved from admission to 0.162. This is likely secondary to demand ischemia. BUN is increased to 25 and creatinine is 1.9. GFR is 26. Glucose has been between 202 and 207. Magnesium is 2.2. proBNP on recheck was 6926. We will hold the patient's Cozaar and continue to diurese. Will address plan pending on renal stability and output. Length of stay likely 2-3 more days. 05/21/2021 65-year-old female admitted to the floor for possible CHF exacerbation. No known history of CHF but it is now confirmed by echocardiogram with a EF of 45% and global mildly decreased left ventricular systolic function. There is also concentric left ventricular hypertrophy and a severe aortic stenosis noted. Patient will need to follow-up with cardiology regarding her aortic stenosis after discharge. She continues to have rather unimpressive urine output. She is down 5 pounds from admission. There is no leukocytosis and her hemoglobin is 12.0 with a hematocrit of 39.0. Platelets are 140. Sodium has increased to 140. Potassium 4.3. Chloride 103. Carbon dioxide 30. Anion gap is 11.3. BUN is 39. Creatinine 2.2. GFR is 22. Glucose has been between 152 and 222. Calcium is 7.9. Troponin has improved to 0.146. Suspect this is demand ischemia. She will be placed on BiPAP nocturnally and as needed with naps. Otherwise she reports she feels better today. No acute concerns. Plan will be to continue diuresis and wean with oxygen as patient tolerates. She is currently on 3 L. Likely discharge in 2 to 3 days pending improvement. 05/23/2021 65-year-old female who admitted to the medical floor for concerns of possible congestive heart failure. No history of congestive heart failure however echo showed an EF of 45% and decreased left ventricular systolic function with severe aortic stenosis. Again, patient will be recommended to follow-up with network architect manager regarding aortic stenosis once discharged from the hospital. Lasix was increased to 80 mg twice daily yesterday. Patient is down 3 pounds in the past 24 hours and -1605 mL per charted intake and output. She is refusing her BiPAP. She continues on oxygen at 2 L per nasal cannula. Continues to have crackles noted in her lungs as well as inspiratory and expiratory wheezing. Den ies any complaints. Labs are essentially unchanged other than creatinine down slightly. We will continue to diurese the patient and wean the oxygen. Patient will likely be here through the weekend. - Plan Plan:: 65-year-old female who presents to the emergency department with a chief complaint of cough and difficulty breathing found to be hypoxic requiring supplemental oxygen. Referred for CHF exacerbation. 1. Acute hypoxic respiratory failure. Secondary to acute CHF exacerbation. In the setting of severe aortic stenosis. Continue Lasix 80 mg IV push twice daily. Fluid restriction of 2 L/day. Daily weights by standing scale only. RT consult. Bronchodilators as necessary. Wean supplemental oxygen as tolerated. Daily ambulation saturation trials. Nocturnal BiPAP. 2. Acute CHF exacerbation. Plan as above. Echo -EF of 45 %; global and mildly decreased left ventricle regular systolic function; probable bicuspid aortic valve, severe aortic stenosis with PV 4.34m/s, MG 42mmhg, ASHVIN 0.98cm2, DI 0.26. Moderate AI. Follow-up with cardiology regarding aortic stenosis once she is discharged from the hospital She is on lasix 3. Type 2 diabetes mellitus. Hold metformin. Continue hospital hyperglycemia protocol. hemoglobin A1c 7.9 Dietitian and diabetes education. 3. Mild elevated troponin. Likely secondary to supply demand mismatch in the setting of hypoxia and CKD. Patient without chest pain. No EKG changes. No need for stomach anticoagulation currently. 4. INDIRA on CKD stage III nearly stage IV. Creatinine 1.9. Creatinine 1.2 on November 22, 2019. Avoid nephrotoxins. Renally dose medications if appropriate. Holding Metformin. Monitor volume status as she is requiring active diuresis. Repeat renal function in morning 5. Bronchitis? Patient complains of cough with yellowish sputum Chest x-ray Azithromycin 500 mg for 3 - 5 days CODE STATUS: Full code. DVT prophylaxis with heparin and SCDs.
[2021-05-24] MEDS: Simvastatin 40 MG Tab PO SCH (22:18)
[2021-05-25] MEDS: guaiFENesin 100 MG/5 ML Soln 10 ML UD Cup PO SCH ×4 (02:32→21:07)
[2021-05-25] MEDS: Furosemide 40 MG/4 ML VIAL IVPUSH SCH ×2 (06:36→14:21)
[2021-05-25] MEDS: Heparin Sodium 5,000 Units/ML Vial SUBCUT SCH ×3 (06:37→20:44)
[2021-05-25] MEDS: Aspirin 81 MG Tab.EC PO SCH (08:32)
[2021-05-25] MEDS: Insulin Glargine,Hum.Rec.Anlog 100 UNIT/ML 3 ML Pen SUBCUT SCH (08:33)
[2021-05-25] MEDS: Azithromycin 250 MG Tab PO SCH (08:33)
[2021-05-25] MEDS: Insulin Lispro 100 Unit/ML 3 ML KwikPen SUBCUT SCH ×5 (08:34→21:07)
[2021-05-25] MEDS ORDERED: Magnesium Hydroxide 400 MG/5 ML Susp 30 ML Cup PO ONE (09:44)
--- NOTE | 2021-05-25 13:26 | PCM.PN ---
- General Info Date of Service: 05/25/21 Admission Dx/Problem (Free Text): Admission Diagnosis/Problem Admission Diagnosis/Problem CHF, Congestive heart failure Subjective Update: Patient still complains of cough with yellowish sputum. She otherwise denies fever, chills, nausea, vomiting, or diarrhea. She is on 3 L She is not on home oxygen Creatinine 2.1. Creatinine 1.2 on November 22, 2019. I will decrease lasix to 40mg twice daily from 80 mg bid - Review of Systems Systems Review Comment:: Positive for shortness of breath and cough with yellowish sputum. All other systems were reviewed and negative. - Patient Data Vitals - Most Recent: Last Vital Signs Temp 36.8 C 05/25/21 02:34 Pulse 68 05/25/21 02:34 Resp 14 05/25/21 02:34 BP 132/81 05/25/21 02:34 Pulse Ox 97 05/25/21 02:34 Weight - Most Recent: 103.374 kg I&O - Last 24 Hours: Intake & Output 05/24/21 05/25/21 05/25/21 22:59 06:59 14:59 Intake Total 635 400 Output Total 800 650 Balance -165 -250 Lab Results Last 24 Hours: Laboratory Results - last 24 hr 05/24/21 05/24/21 05/25/21 Range/Units 16:28 22:21 06:15 WBC 9.83 (3.98-10.04) K/mm3 RBC 4.19 (3.98-5.22) M/mm3 Hgb 11.2 (11.2-15.7) gm/dl Hct 37.0 (34.1-44.9) % MCV 88.3 (79.4-94.8) fl MCH 26.7 (25.6-32.2) pg MCHC 30.3 L (32.2-35.5) g/dl RDW Std Deviation 42.9 (36.4-46.3) fL Plt Count 181 L (182-369) K/mm3 MPV 12.8 H (9.4-12.3) fl Neut % (Auto) 65.8 (34.0-71.1) % Lymph % (Auto) 20.2 (19.3-51.7) % [place] % (Auto) 9.0 (4.7-12.5) % Eos % (Auto) 4.2 (0.7-5.8) Baso % (Auto) 0.3 (0.1-1.2) % Neut # (Auto) 6.47 H (1.56-6.13) K/mm3 Lymph # (Auto) 1.99 (1.18-3.74) K/mm3 [place] # (Auto) 0.88 H (0.24-0.36) K/mm3 Eos # (Auto) 0.41 H (0.04-0.36) K/mm3 Baso # (Auto) 0.03 (0.01-0.08) K/mm3 Sodium (136-145) mEq/L Potassium (3.5-5.1) mEq/L Chloride (98-107) mEq/L Carbon Dioxide (21-32) mEq/L Anion Gap (5-15) BUN (7-18) mg/dL Creatinine (0.55-1.02) mg/dL Est Cr Clr Drug Dosing mL/min Estimated GFR (MDRD) (>60) mL/min BUN/Creatinine Ratio (14-18) Glucose (70-99) mg/dL POC Glucose 160 H 147 H (70-99) mg/dL Calcium (8.5-10.1) mg/dL Magnesium (1.8-2.4) mg/dL Total Bilirubin (0.2-1.0) mg/dL AST (15-37) U/L ALT (14-59) U/L Alkaline Phosphatase (46-116) U/L Total Protein (6.4-8.2) g/dl Albumin (3.4-5.0) g/dl Globulin gm/dL Albumin/Globulin Ratio (1-2) 05/25/21 05/25/21 05/25/21 Range/Units 06:15 06:38 11:50 WBC (3.98-10.04) K/mm3 RBC (3.98-5.22) M/mm3 Hgb (11.2-15.7) gm/dl Hct (34.1-44.9) % MCV (79.4-94.8) fl MCH (25.6-32.2) pg MCHC (32.2-35.5) g/dl RDW Std Deviation (36.4-46.3) fL Plt Count (182-369) K/mm3 MPV (9.4-12.3) fl Neut % (Auto) (34.0-71.1) % Lymph % (Auto) (19.3-51.7) % [place] % (Auto) (4.7-12.5) % Eos % (Auto) (0.7-5.8) Baso % (Auto) (0.1-1.2) % Neut # (Auto) (1.56-6.13) K/mm3 Lymph # (Auto) (1.18-3.74) K/mm3 [place] # (Auto) (0.24-0.36) K/mm3 Eos # (Auto) (0.04-0.36) K/mm3 Baso # (Auto) (0.01-0.08) K/mm3 Sodium 139 (136-145) mEq/L Potassium 4.4 (3.5-5.1) mEq/L Chloride 99 (98-107) mEq/L Carbon Dioxide 35 H (21-32) mEq/L Anion Gap 9.4 (5-15) BUN 51 H (7-18) mg/dL Creatinine 2.1 H (0.55-1.02) mg/dL Est Cr Clr Drug Dosing 21.80 mL/min Estimated GFR (MDRD) 24 (>60) mL/min BUN/Creatinine Ratio 24.3 H (14-18) Glucose 193 H (70-99) mg/dL POC Glucose 175 H 222 H (70-99) mg/dL Calcium 8.4 L (8.5-10.1) mg/dL Magnesium 2.0 (1.8-2.4) mg/dL Total Bilirubin 0.3 (0.2-1.0) mg/dL AST 13 L (15-37) U/L ALT 15 (14-59) U/L Alkaline Phosphatase 58 (46-116) U/L Total Protein 5.9 L (6.4-8.2) g/dl Albumin 2.3 L (3.4-5.0) g/dl Globulin 3.6 gm/dL Albumin/Globulin Ratio 0.6 L (1-2) Med Orders - Current: Current Medications Acetaminophen (Acetaminophen 325 Mg Tab) 650 mg PO Q4H PRN PRN Reason: Pain (Mild 1-3)/fever Albuterol (Albuterol 6.7 Gm Inhaler) 0 gm INH Q2H PRN PRN Reason: SOB/Wheezing Albuterol/Ipratropium (Albuterol/Ipratropium 3.0-0.5 Mg/3 Ml Neb Soln) 3 ml NEB QIDRT PRN PRN Reason: SOB/Wheezing Last Admin: 05/23/21 21:01 Dose: 3 ml Documented by: Aspirin (Aspirin 81 Mg Tab.Ec) 81 mg PO DAILY [facility] Last Admin: 05/25/21 08:32 Dose: 81 mg Documented by: Azithromycin (Azithromycin 250 Mg Tab) 500 mg PO DAILY [facility] Stop: 05/29/21 09:46 Last Admin: 05/25/21 08:33 Dose: 500 mg Documented by: Docusate Sodium (Docusate Sodium 100 Mg Cap) 100 mg PO BID PRN PRN Reason: Constipation Last Admin: 05/24/21 09:28 Dose: 100 mg Documented by: Furosemide (Furosemide 40 Mg/4 Ml Vial) 80 mg IVPUSH BIDDIURETIC [facility] Last Admin: 05/25/21 06:36 Dose: 80 mg Documented by: Guaifenesin (Guaifenesin 100 Mg/5 Ml Soln 10 Ml Ud Cup) 200 mg PO Q8H [facility] Last Admin: 05/25/21 10:44 Dose: 200 mg Documented by: Heparin Sodium (Porcine) (Heparin Sodium 5,000 Units/Ml Vial) 5,000 units SUBCUT Q8H [facility] Last Admin: 05/25/21 12:08 Dose: 5,000 units Documented by: Promethazine HCl 12.5 mg/ (Sodium Chloride) 50.5 mls @ 100 mls/hr IV Q6H PRN PRN Reason: Nausea/Vomiting Insulin Glargine (Insulin Glargine,Hum.Rec.Anlog 100 Unit/Ml 3 Ml Pen) 10 unit SUBCUT DAILY [facility] Last Admin: 05/25/21 08:33 Dose: 10 unit Documented by: Insulin Human Lispro (Insulin Lispro 100 Unit/Ml 3 Ml Kwikpen) 0 unit SUBCUT QIDACANDBED [facility]; Protocol Last Admin: 05/25/21 12:09 Dose: 4 units Documented by: Simvastatin (Simvastatin 40 Mg Tab) 40 mg PO BEDTIME [facility] Last Admin: 05/24/21 22:18 Dose: 40 mg Documented by: Sodium Chloride (Sodium Chloride 0.9% 10 Ml Syringe) 10 ml FLUSH ASDIRECTED PRN PRN Reason: Keep Vein Open Last Admin: 05/19/21 14:01 Dose: 10 ml Documented by: Discontinued Medications Albuterol (Albuterol 0.083% 2.5 Mg/3 Ml Neb Soln) 2.5 mg NEB ONETIME ONE Stop: 05/19/21 12:28 Last Admin: 05/19/21 12:52 Dose: 2.5 mg Documented by: Furosemide (Furosemide 40 Mg/4 Ml Vial) 40 mg IVPUSH NOW ONE Stop: 05/19/21 13:00 Last Admin: 05/19/21 14:01 Dose: 40 mg Documented by: Furosemide (Furosemide 40 Mg/4 Ml Vial) 40 mg IVPUSH BID [facility] Last Admin: 05/20/21 08:33 Dose: 40 mg Documented by: Furosemide (Furosemide 40 Mg/4 Ml Vial) 60 mg IVPUSH BIDDIURETIC [facility] Last Admin: 05/22/21 05:41 Dose: 60 mg Documented by: Heparin Sodium (Porcine) (Heparin Sodium 5,000 Units/Ml Vial) 5,000 units SUBCUT Q8H [facility] Last Admin: 05/19/21 22:11 Dose: Not Given Documented by: Magnesium Sulfate 4 gm/ Premix 50 mls @ 12.5 mls/hr IV ONETIME ONE Stop: 05/19/21 17:37 Last Admin: 05/19/21 14:42 Dose: 12.5 mls/hr Documented by: Insulin Glargine (Insulin Glargine,Hum.Rec.Anlog 100 Unit/Ml 3 Ml Pen) 35 unit SUBCUT BID [facility] Last Admin: 05/20/21 09:30 Dose: Not Given Documented by: Insulin Glargine (Insulin Glargine,Hum.Rec.Anlog 100 Unit/Ml 3 Ml Pen) 10 unit SUBCUT ONETIME ONE Stop: 05/20/21 13:31 Last Admin: 05/20/21 13:37 Dose: 10 units Documented by: Losartan Potassium (Losartan 50 Mg Tab) 50 mg PO DAILY [facility] Last Admin: 05/20/21 08:33 Dose: 50 mg Documented by: Magnesium Hydroxide (Magnesium Hydroxide 400 Mg/5 Ml Susp 30 Ml Cup) 30 ml PO ONETIME ONE Stop: 05/21/21 06:52 Last Admin: 05/21/21 07:26 Dose: 30 ml Documented by: Magnesium Hydroxide (Magnesium Hydroxide 400 Mg/5 Ml Susp 30 Ml Cup) 30 ml PO ONETIME ONE Stop: 05/25/21 09:45 Last Admin: 05/25/21 10:43 Dose: 30 ml Documented by: Ondansetron HCl (Ondansetron 4 Mg Tab.Dis) 4 mg PO Q4H PRN PRN Reason: nausea, able to take PO Ondansetron HCl (Ondansetron 4 Mg/2 Ml Sdv) 4 mg IV Q4H PRN PRN Reason: Nausea/Vomiting - Exam Physical Findings Comments:: General: Alert, Oriented, Cooperative HEENT: Pupils Equal, Pupils Reactive, EOMI Neck: Supple, Trachea Midline, No JVD, No Thyromegaly Lungs: Normal Respiratory Effort, Decreased Breath Sounds, Rales Cardiovascular: Regular Rate, Regular Rhythm GI/Abdominal Exam: Normal Bowel Sounds, Soft, Non-Tender, No Organomegaly Extremities: Normal Inspection, Normal Range of Motion, Non-Tender Skin: Warm, Dry, Intact Neurological: No New Focal Deficit, Normal Speech, Normal Tone, Strength Equal Bilateral, Reflexes Equal Bilateral, Sensation Intact Psy/Mental Status: Alert, Normal Affect, Normal Mood - Patient Data Lab Results Last 24 hrs: Laboratory Results - last 24 hr 05/24/21 05/24/21 05/25/21 Range/Units 16:28 22:21 06:15 WBC 9.83 (3.98-10.04) K/mm3 RBC 4.19 (3.98-5.22) M/mm3 Hgb 11.2 (11.2-15.7) gm/dl Hct 37.0 (34.1-44.9) % MCV 88.3 (79.4-94.8) fl MCH 26.7 (25.6-32.2) pg MCHC 30.3 L (32.2-35.5) g/dl RDW Std Deviation 42.9 (36.4-46.3) fL Plt Count 181 L (182-369) K/mm3 MPV 12.8 H (9.4-12.3) fl Neut % (Auto) 65.8 (34.0-71.1) % Lymph % (Auto) 20.2 (19.3-51.7) % [place] % (Auto) 9.0 (4.7-12.5) % Eos % (Auto) 4.2 (0.7-5.8) Baso % (Auto) 0.3 (0.1-1.2) % Neut # (Auto) 6.47 H (1.56-6.13) K/mm3 Lymph # (Auto) 1.99 (1.18-3.74) K/mm3 [place] # (Auto) 0.88 H (0.24-0.36) K/mm3 Eos # (Auto) 0.41 H (0.04-0.36) K/mm3 Baso # (Auto) 0.03 (0.01-0.08) K/mm3 Sodium (136-145) mEq/L Potassium (3.5-5.1) mEq/L Chloride (98-107) mEq/L Carbon Dioxide (21-32) mEq/L Anion Gap (5-15) BUN (7-18) mg/dL Creatinine (0.55-1.02) mg/dL Est Cr Clr Drug Dosing mL/min Estimated GFR (MDRD) (>60) mL/min BUN/Creatinine Ratio (14-18) Glucose (70-99) mg/dL POC Glucose 160 H 147 H (70-99) mg/dL Calcium (8.5-10.1) mg/dL Magnesium (1.8-2.4) mg/dL Total Bilirubin (0.2-1.0) mg/dL AST (15-37) U/L ALT (14-59) U/L Alkaline Phosphatase (46-116) U/L Total Protein (6.4-8.2) g/dl Albumin (3.4-5.0) g/dl Globulin gm/dL Albumin/Globulin Ratio (1-2) 05/25/21 05/25/21 05/25/21 Range/Units 06:15 06:38 11:50 WBC (3.98-10.04) K/mm3 RBC (3.98-5.22) M/mm3 Hgb (11.2-15.7) gm/dl Hct (34.1-44.9) % MCV (79.4-94.8) fl MCH (25.6-32.2) pg MCHC (32.2-35.5) g/dl RDW Std Deviation (36.4-46.3) fL Plt Count (182-369) K/mm3 MPV (9.4-12.3) fl Neut % (Auto) (34.0-71.1) % Lymph % (Auto) (19.3-51.7) % [place] % (Auto) (4.7-12.5) % Eos % (Auto) (0.7-5.8) Baso % (Auto) (0.1-1.2) % Neut # (Auto) (1.56-6.13) K/mm3 Lymph # (Auto) (1.18-3.74) K/mm3 [place] # (Auto) (0.24-0.36) K/mm3 Eos # (Auto) (0.04-0.36) K/mm3 Baso # (Auto) (0.01-0.08) K/mm3 Sodium 139 (136-145) mEq/L Potassium 4.4 (3.5-5.1) mEq/L Chloride 99 (98-107) mEq/L Carbon Dioxide 35 H (21-32) mEq/L Anion Gap 9.4 (5-15) BUN 51 H (7-18) mg/dL Creatinine 2.1 H (0.55-1.02) mg/dL Est Cr Clr Drug Dosing 21.80 mL/min Estimated GFR (MDRD) 24 (>60) mL/min BUN/Creatinine Ratio 24.3 H (14-18) Glucose 193 H (70-99) mg/dL POC Glucose 175 H 222 H (70-99) mg/dL Calcium 8.4 L (8.5-10.1) mg/dL Magnesium 2.0 (1.8-2.4) mg/dL Total Bilirubin 0.3 (0.2-1.0) mg/dL AST 13 L (15-37) U/L ALT 15 (14-59) U/L Alkaline Phosphatase 58 (46-116) U/L Total Protein 5.9 L (6.4-8.2) g/dl Albumin 2.3 L (3.4-5.0) g/dl Globulin 3.6 gm/dL Albumin/Globulin Ratio 0.6 L (1-2) Result Diagrams: 05/25/21 06:15 05/25/21 06:15 Sepsis Event Note - Evaluation Sepsis Screening Result: No Definite Risk - Focused Exam Vital Signs: Vital Signs Temp Pulse Resp BP Pulse Ox 05/25/21 02:34 36.8 C 68 14 132/81 97 - Problem List Review Problem List Initiated/Reviewed/Updated: Yes - Assessment Assessment:: 05/20/2021 This is a 65-year-old female who was admitted to the floor for concerns over new onset CHF. Patient is requiring 3 L of oxygen currently but states she does not feel too short of breath with this. She is currently receiving 40 mg IV push daily Lasix and has not had too much output with this. We will therefore increase her to 60 mg twice daily IV push with diuretic scheduling. Will monitor I's and O's and daily weights. She does report a history of asthma and so we will add in as needed albuterol MDI and DuoNeb's. RT is consulted and working on weaning patient. Echocardiogram was obtained today and is pending. A1c was 7.9 and we will continue to hold her Metformin and prescribe long-acting insulin per her home dosing and also sliding scale insulin as needed. Troponin has improved from admission to 0.162. This is likely secondary to demand ischemia. BUN is increased to 25 and creatinine is 1.9. GFR is 26. Glucose has been between 202 and 207. Magnesium is 2.2. proBNP on recheck was 6926. We will hold the patient's Cozaar and continue to diurese. Will address plan pending on renal stability and output. Length of stay likely 2-3 more days. 05/21/2021 65-year-old female admitted to the floor for possible CHF exacerbation. No known history of CHF but it is now confirmed by echocardiogram with a EF of 45% and global mildly decreased left ventricular systolic function. There is also concentric left ventricular hypertrophy and a severe aortic stenosis noted. Patient will need to follow-up with cardiology regarding her aortic stenosis after discharge. She continues to have rather unimpressive urine output. She is down 5 pounds from admission. There is no leukocytosis and her hemoglobin is 12.0 with a hematocrit of 39.0. Platelets are 140. Sodium has increased to 140. Potassium 4.3. Chloride 103. Carbon dioxide 30. Anion gap is 11.3. BUN is 39. Creatinine 2.2. GFR is 22. Glucose has been between 152 and 222. Calcium is 7.9. Troponin has improved to 0.146. Suspect this is demand ischemia. She will be placed on BiPAP nocturnally and as needed with naps. Otherwise she reports she feels better today. No acute concerns. Plan will be to continue diuresis and wean with oxygen as patient tolerates. She is currently on 3 L. Likely discharge in 2 to 3 days pending improvement. 05/23/2021 65-year-old female who admitted to the medical floor for concerns of possible congestive heart failure. No history of congestive heart failure however echo showed an EF of 45% and decreased left ventricular systolic function with severe aortic stenosis. Again, patient will be recommended to follow-up with marketing engineer regarding aortic stenosis once discharged from the hospital. Lasix was increased to 80 mg twice daily yesterday. Patient is down 3 pounds in the past 24 hours and -1605 mL per charted intake and output. She is refusing her BiPAP. She continues on oxygen at 2 L per nasal cannula. Continues to have crackles noted in her lungs as well as inspiratory and expiratory wheezing. Denies any complaints. Labs are essentially unchanged other than creatinine down slightly. We will continue to diurese the patient and wean the oxygen. Patient will likely be here through the weekend. - Plan Plan:: 65-year-old female who presents to the emergency department with a chief complaint of cough and difficulty breathing found to be hypoxic requiring supplemental oxygen. Referred for CHF exacerbation. 1. Acute hypoxic respiratory failure. Secondary to acute CHF exacerbation. In the setting of severe aortic stenosis. No on home oxygen Decreased Lasix to 40 mg IV push twice daily. Fluid restriction of 2 L/day. Daily weights by standing scale only. RT consult. Bronchodilators as necessary. Wean supplemental oxygen as tolerated. Daily ambulation saturation trials. Nocturnal BiPAP. 2. Acute CHF exacerbation. Plan as above. Echo -EF of 45 %; global and mildly decreased left ventricle regular systolic function; probable bicuspid aortic valve, severe aortic stenosis with PV 4.34m/s, MG 42mmhg, ASHVIN 0.98cm2, DI 0.26. Moderate AI. Follow-up with cardiology regarding aortic stenosis once she is discharged from the hospital She is on lasix 3. Type 2 diabetes mellitus. Hold metformin. Continue hospital hyperglycemia protocol. hemoglobin A1c 7.9 Dietitian and diabetes education. 3. Mild elevated troponin. Likely secondary to supply demand mismatch in the setting of hypoxia and CKD. Patient without chest pain. No EKG changes. No need for stomach anticoagulation currently. 4. INDIRA on CKD stage III nearly stage IV. Creatinine 2.1 today. Creatinine 1.2 on November 22, 2019. Avoid nephrotoxins. Renally dose medications if appropriate. Holding Metformin. Monitor volume status as she is requiring active diuresis. Decreased lasix Repeat renal function in morning 5. Bronchitis? Patient complains of cough with yellowish sputum Chest x-ray pending Azithromycin 500 mg for 3 - 5 days CODE STATUS: Full code. DVT prophylaxis with heparin and SCDs. Disposition: 1 to 2 days PT OT Follow with PCP, marketing engineer, nephrology
[2021-05-25] MEDS: Simvastatin 40 MG Tab PO SCH (21:07)
[2021-05-26] MEDS: Heparin Sodium 5,000 Units/ML Vial SUBCUT SCH ×3 (05:15→21:51)
[2021-05-26] MEDS: guaiFENesin 100 MG/5 ML Soln 10 ML UD Cup PO SCH ×4 (05:15→21:51)
[2021-05-26] MEDS: Furosemide 40 MG/4 ML VIAL IVPUSH SCH (05:16)
[2021-05-26] MEDS ORDERED: Furosemide 20 MG/2 ML VIAL IVPUSH ONE (08:15)
[2021-05-26] MEDS: Docusate Sodium 100 MG Cap PO PRN (08:46)
[2021-05-26] MEDS: Azithromycin 250 MG Tab PO SCH (08:46)
[2021-05-26] MEDS: Aspirin 81 MG Tab.EC PO SCH (08:46)
[2021-05-26] MEDS: Insulin Glargine,Hum.Rec.Anlog 100 UNIT/ML 3 ML Pen SUBCUT SCH (08:47)
[2021-05-26] MEDS: Insulin Lispro 100 Unit/ML 3 ML KwikPen SUBCUT SCH ×4 (08:48→21:53)
--- NOTE | 2021-05-26 11:37 | CR ---
Chest: Portable view of the chest was obtained. Comparison: Prior chest x-ray of 05/19/21. Heart size is slightly less prominent than seen on prior chest x-ray. Upper mediastinum is within normal limits. Lungs are clear with no acute parenchymal change. Bony structures show nothing acute. Impression: 1. Heart size is slightly less prominent than on prior study. 2. Nothing acute is appreciated on portable chest x-ray. Diagnostic code #2
--- NOTE | 2021-05-26 14:29 | PCM.PN ---
- General Info Date of Service: 05/26/21 Admission Dx/Problem (Free Text): Admission Diagnosis/Problem Admission Diagnosis/Problem CHF, Congestive heart failure Functional Status: Reports: Pain Controlled, Ambulating (With PT), Urinating, Incentive Spirometry. Denies: Tolerating Diet (Patient states she really has no appetite) - Review of Systems General: Reports: No Symptoms HEENT: Reports: No Symptoms Pulmonary: Reports: Shortness of Breath, Cough. Denies: Sputum, Wheezing Cardiovascular: Reports: No Symptoms Gastrointestinal: Reports: No Symptoms Genitourinary: Reports: No Symptoms Musculoskeletal: Reports: No Symptoms Skin: Reports: No Symptoms Neurological: Reports: No Symptoms Psychiatric: Reports: No Symptoms - Patient Data Vitals - Most Recent: Last Vital Signs Temp 97.5 F 05/26/21 11:53 Pulse 64 05/26/21 11:53 Resp 22 H 05/26/21 11:53 BP 113/58 L 05/26/21 11:53 Pulse Ox 93 L 05/26/21 11:53 Weight - Most Recent: 229 lb 3.2 oz I&O - Last 24 Hours: Intake & Output 05/25/21 05/26/21 05/26/21 22:59 06:59 14:59 Intake Total 490 400 0 Output Total 850 300 200 Balance -360 100 -200 Lab Results Last 24 Hours: Laboratory Results - last 24 hr 05/25/21 05/25/21 05/26/21 Range/Units 17:27 20:42 05:30 WBC 9.80 (3.98-10.04) K/mm3 RBC 4.28 (3.98-5.22) M/mm3 Hgb 11.5 (11.2-15.7) gm/dl Hct 37.7 (34.1-44.9) % MCV 88.1 (79.4-94.8) fl MCH 26.9 (25.6-32.2) pg MCHC 30.5 L (32.2-35.5) g/dl RDW Std Deviation 42.8 (36.4-46.3) fL Plt Count 203 (182-369) K/mm3 MPV 13.1 H (9.4-12.3) fl Neut % (Auto) 57.1 (34.0-71.1) % Lymph % (Auto) 28.2 (19.3-51.7) % Fleming % (Auto) 9.1 (4.7-12.5) % Eos % (Auto) 4.7 (0.7-5.8) Baso % (Auto) 0.3 (0.1-1.2) % Neut # (Auto) 5.60 (1.56-6.13) K/mm3 Lymph # (Auto) 2.76 (1.18-3.74) K/mm3 Fleming # (Auto) 0.89 H (0.24-0.36) K/mm3 Eos # (Auto) 0.46 H (0.04-0.36) K/mm3 Baso # (Auto) 0.03 (0.01-0.08) K/mm3 Sodium (136-145) mEq/L Potassium (3.5-5.1) mEq/L Chloride (98-107) mEq/L Carbon Dioxide (21-32) mEq/L Anion Gap (5-15) BUN (7-18) mg/dL Creatinine (0.55-1.02) mg/dL Est Cr Clr Drug Dosing mL/min Estimated GFR (MDRD) (>60) mL/min BUN/Creatinine Ratio (14-18) Glucose (70-99) mg/dL POC Glucose 244 H 190 H (70-99) mg/dL Calcium (8.5-10.1) mg/dL Magnesium (1.8-2.4) mg/dL Total Bilirubin (0.2-1.0) mg/dL AST (15-37) U/L ALT (14-59) U/L Alkaline Phosphatase (46-116) U/L NT-Pro-B Natriuret Pep (0-125) pg/mL Total Protein (6.4-8.2) g/dl Albumin (3.4-5.0) g/dl Globulin gm/dL Albumin/Globulin Ratio (1-2) 05/26/21 05/26/21 05/26/21 Range/Units 05:30 06:40 08:44 WBC (3.98-10.04) K/mm3 RBC (3.98-5.22) M/mm3 Hgb (11.2-15.7) gm/dl Hct (34.1-44.9) % MCV (79.4-94.8) fl MCH (25.6-32.2) pg MCHC (32.2-35.5) g/dl RDW Std Deviation (36.4-46.3) fL Plt Count (182-369) K/mm3 MPV (9.4-12.3) fl Neut % (Auto) (34.0-71.1) % Lymph % (Auto) (19.3-51.7) % Fleming % (Auto) (4.7-12.5) % Eos % (Auto) (0.7-5.8) Baso % (Auto) (0.1-1.2) % Neut # (Auto) (1.56-6.13) K/mm3 Lymph # (Auto) (1.18-3.74) K/mm3 Fleming # (Auto) (0.24-0.36) K/mm3 Eos # (Auto) (0.04-0.36) K/mm3 Baso # (Auto) (0.01-0.08) K/mm3 Sodium 139 (136-145) mEq/L Potassium 4.5 (3.5-5.1) mEq/L Chloride 100 (98-107) mEq/L Carbon Dioxide 33 H (21-32) mEq/L Anion Gap 10.5 (5-15) BUN 65 H (7-18) mg/dL Creatinine 2.3 H (0.55-1.02) mg/dL Est Cr Clr Drug Dosing 19.90 mL/min Estimated GFR (MDRD) 21 (>60) mL/min BUN/Creatinine Ratio 28.3 H (14-18) Glucose 199 H (70-99) mg/dL POC Glucose 179 H (70-99) mg/dL Calcium 8.6 (8.5-10.1) mg/dL Magnesium 2.1 (1.8-2.4) mg/dL Total Bilirubin 0.3 (0.2-1.0) mg/dL AST 16 (15-37) U/L ALT 17 (14-59) U/L Alkaline Phosphatase 63 (46-116) U/L NT-Pro-B Natriuret Pep 1285 H (0-125) pg/mL Total Protein 6.2 L (6.4-8.2) g/dl Albumin 2.4 L (3.4-5.0) g/dl Globulin 3.8 gm/dL Albumin/Globulin Ratio 0.6 L (1-2) 05/26/21 Range/Units 11:49 WBC (3.98-10.04) K/mm3 RBC (3.98-5.22) M/mm3 Hgb (11.2-15.7) gm/dl Hct (34.1-44.9) % MCV (79.4-94.8) fl MCH (25.6-32.2) pg MCHC (32.2-35.5) g/dl RDW Std Deviation (36.4-46.3) fL Plt Count (182-369) K/mm3 MPV (9.4-12.3) fl Neut % (Auto) (34.0-71.1) % Lymph % (Auto) (19.3-51.7) % Fleming % (Auto) (4.7-12.5) % Eos % (Auto) (0.7-5.8) Baso % (Auto) (0.1-1.2) % Neut # (Auto) (1.56-6.13) K/mm3 Lymph # (Auto) (1.18-3.74) K/mm3 Fleming # (Auto) (0.24-0.36) K/mm3 Eos # (Auto) (0.04-0.36) K/mm3 Baso # (Auto) (0.01-0.08) K/mm3 Sodium (136-145) mEq/L Potassium (3.5-5.1) mEq/L Chloride (98-107) mEq/L Carbon Dioxide (21-32) mEq/L Anion Gap (5-15) BUN (7-18) mg/dL Creatinine (0.55-1.02) mg/dL Est Cr Clr Drug Dosing mL/min Estimated GFR (MDRD) (>60) mL/min BUN/Creatinine Ratio (14-18) Glucose (70-99) mg/dL POC Glucose 197 H (70-99) mg/dL Calcium (8.5-10.1) mg/dL Magnesium (1.8-2.4) mg/dL Total Bilirubin (0.2-1.0) mg/dL AST (15-37) U/L ALT (14-59) U/L Alkaline Phosphatase (46-116) U/L NT-Pro-B Natriuret Pep (0-125) pg/mL Total Protein (6.4-8.2) g/dl Albumin (3.4-5.0) g/dl Globulin gm/dL Albumin/Globulin Ratio (1-2) Med Orders - Current: Current Medications Acetaminophen (Acetaminophen 325 Mg Tab) 650 mg PO Q4H PRN PRN Reason: Pain (Mild 1-3)/fever Albuterol (Albuterol 6.7 Gm Inhaler) 0 gm INH Q2H PRN PRN Reason: SOB/Wheezing Albuterol/Ipratropium (Albuterol/Ipratropium 3.0-0.5 Mg/3 Ml Neb Soln) 3 ml NEB QIDRT PRN PRN Reason: SOB/Wheezing Last Admin: 05/23/21 21:01 Dose: 3 ml Documented by: Aspirin (Aspirin 81 Mg Tab.Ec) 81 mg PO DAILY [facility] Last Admin: 05/26/21 08:46 Dose: 81 mg Documented by: Azithromycin (Azithromycin 250 Mg Tab) 500 mg PO DAILY [facility] Stop: 05/29/21 09:46 Last Admin: 05/26/21 08:46 Dose: 500 mg Documented by: Benzonatate (Benzonatate 100 Mg Cap) 100 mg PO Q8H PRN PRN Reason: Cough Docusate Sodium (Docusate Sodium 100 Mg Cap) 100 mg PO BID PRN PRN Reason: Constipation Last Admin: 05/26/21 08:46 Dose: 100 mg Documented by: Guaifenesin (Guaifenesin 100 Mg/5 Ml Soln 10 Ml Ud Cup) 200 mg PO Q6H [facility] Last Admin: 05/26/21 10:00 Dose: 200 mg Documented by: Heparin Sodium (Porcine) (Heparin Sodium 5,000 Units/Ml Vial) 5,000 units SUBCUT Q8H [facility] Last Admin: 05/26/21 11:59 Dose: 5,000 units Documented by: Promethazine HCl 12.5 mg/ (Sodium Chloride) 50.5 mls @ 100 mls/hr IV Q6H PRN PRN Reason: Nausea/Vomiting Insulin Glargine (Insulin Glargine,Hum.Rec.Anlog 100 Unit/Ml 3 Ml Pen) 10 unit SUBCUT DAILY [facility] Last Admin: 05/26/21 08:47 Dose: 10 unit Documented by: Insulin Human Lispro (Insulin Lispro 100 Unit/Ml 3 Ml Kwikpen) 0 unit SUBCUT QIDACANDBED [facility]; Protocol Last Admin: 05/26/21 12:02 Dose: 2 units Documented by: Simvastatin (Simvastatin 40 Mg Tab) 40 mg PO BEDTIME [facility] Last Admin: 05/25/21 21:07 Dose: 40 mg Documented by: Sodium Chloride (Sodium Chloride 0.9% 10 Ml Syringe) 10 ml FLUSH ASDIRECTED PRN PRN Reason: Keep Vein Open Last Admin: 05/19/21 14:01 Dose: 10 ml Documented by: Discontinued Medications Albuterol (Albuterol 0.083% 2.5 Mg/3 Ml Neb Soln) 2.5 mg NEB ONETIME ONE Stop: 05/19/21 12:28 Last Admin: 05/19/21 12:52 Dose: 2.5 mg Documented by: Furosemide (Furosemide 40 Mg/4 Ml Vial) 40 mg IVPUSH NOW ONE Stop: 05/19/21 13:00 Last Admin: 05/19/21 14:01 Dose: 40 mg Documented by: Furosemide (Furosemide 40 Mg/4 Ml Vial) 40 mg IVPUSH BID [facility] Last Admin: 05/20/21 08:33 Dose: 40 mg Documented by: Furosemide (Furosemide 40 Mg/4 Ml Vial) 60 mg IVPUSH BIDDIURETIC [facility] Last Admin: 05/22/21 05:41 Dose: 60 mg Documented by: Furosemide (Furosemide 40 Mg/4 Ml Vial) 80 mg IVPUSH BIDDIURETIC [facility] Last Admin: 05/25/21 06:36 Dose: 80 mg Documented by: Furosemide (Furosemide 40 Mg/4 Ml Vial) 40 mg IVPUSH BIDDIURETIC [facility] Last Admin: 05/26/21 05:16 Dose: 40 mg Documented by: Furosemide (Furosemide 20 Mg/2 Ml Vial) 20 mg IVPUSH BID ONE Stop: 05/26/21 08:16 Last Admin: 05/26/21 08:47 Dose: 20 mg Documented by: Guaifenesin (Guaifenesin 100 Mg/5 Ml Soln 10 Ml Ud Cup) 200 mg PO Q8H [facility] Last Admin: 05/25/21 10:44 Dose: 200 mg Documented by: Heparin Sodium (Porcine) (Heparin Sodium 5,000 Units/Ml Vial) 5,000 units SUBCUT Q8H [facility] Last Admin: 05/19/21 22:11 Dose: Not Given Documented by: Magnesium Sulfate 4 gm/ Premix 50 mls @ 12.5 mls/hr IV ONETIME ONE Stop: 05/19/21 17:37 Last Admin: 05/19/21 14:42 Dose: 12.5 mls/hr Documented by: Insulin Glargine (Insulin Glargine,Hum.Rec.Anlog 100 Unit/Ml 3 Ml Pen) 35 unit SUBCUT BID [facility] Last Admin: 05/20/21 09:30 Dose: Not Given Documented by: Insulin Glargine (Insulin Glargine,Hum.Rec.Anlog 100 Unit/Ml 3 Ml Pen) 10 unit SUBCUT ONETIME ONE Stop: 05/20/21 13:31 Last Admin: 05/20/21 13:37 Dose: 10 units Documented by: Losartan Potassium (Losartan 50 Mg Tab) 50 mg PO DAILY [facility] Last Admin: 05/20/21 08:33 Dose: 50 mg Documented by: Magnesium Hydroxide (Magnesium Hydroxide 400 Mg/5 Ml Susp 30 Ml Cup) 30 ml PO ONETIME ONE Stop: 05/21/21 06:52 Last Admin: 05/21/21 07:26 Dose: 30 ml Documented by: Magnesium Hydroxide (Magnesium Hydroxide 400 Mg/5 Ml Susp 30 Ml Cup) 30 ml PO ONETIME ONE Stop: 05/25/21 09:45 Last Admin: 05/25/21 10:43 Dose: 30 ml Documented by: Ondansetron HCl (Ondansetron 4 Mg Tab.Dis) 4 mg PO Q4H PRN PRN Reason: nausea, able to take PO Ondansetron HCl (Ondansetron 4 Mg/2 Ml Sdv) 4 mg IV Q4H PRN PRN Reason: Nausea/Vomiting - Exam Quality Assessment: Supplemental Oxygen (1 L per nasal cannula), DVT Prophylaxis (Heparin) General: Alert, Oriented, Cooperative, No Acute Distress HEENT: Pupils Equal, Mucous Membr. Moist/[place] Neck: Supple, Trachea Midline Lungs: Normal Respiratory Effort, Decreased Breath Sounds. No: Crackles (Fine crackles noted to the bilateral bases) Cardiovascular: Regular Rate, Regular Rhythm, Murmurs (Systolic grade 3) GI/Abdominal Exam: Normal Bowel Sounds, Soft, Non-Tender, No Distention (Female) Exam: Deferred Back Exam: Normal Inspection, Full Range of Motion Extremities: Normal Inspection, Normal Range of Motion, Non-Tender, No Pedal Edema, Normal Capillary Refill Peripheral Pulses: 2+: Radial (L), Radial (R) Skin: Warm, Dry, Intact Neurological: No New Focal Deficit Psy/Mental Status: Alert, Normal Affect, Normal Mood - Patient Data Lab Results Last 24 hrs: Laboratory Results - last 24 hr 05/25/21 05/25/21 05/26/21 Range/Units 17:27 20:42 05:30 WBC 9.80 (3.98-10.04) K/mm3 RBC 4.28 (3.98-5.22) M/mm3 Hgb 11.5 (11.2-15.7) gm/dl Hct 37.7 (34.1-44.9) % MCV 88.1 (79.4-94.8) fl MCH 26.9 (25.6-32.2) pg MCHC 30.5 L (32.2-35.5) g/dl RDW Std Deviation 42.8 (36.4-46.3) fL Plt Count 203 (182-369) K/mm3 MPV 13.1 H (9.4-12.3) fl Neut % (Auto) 57.1 (34.0-71.1) % Lymph % (Auto) 28.2 (19.3-51.7) % Fleming % (Auto) 9.1 (4.7-12.5) % Eos % (Auto) 4.7 (0.7-5.8) Baso % (Auto) 0.3 (0.1-1.2) % Neut # (Auto) 5.60 (1.56-6.13) K/mm3 Lymph # (Auto) 2.76 (1.18-3.74) K/mm3 Fleming # (Auto) 0.89 H (0.24-0.36) K/mm3 Eos # (Auto) 0.46 H (0.04-0.36) K/mm3 Baso # (Auto) 0.03 (0.01-0.08) K/mm3 Sodium (136-145) mEq/L Potassium (3.5-5.1) mEq/L Chloride (98-107) mEq/L Carbon Dioxide (21-32) mEq/L Anion Gap (5-15) BUN (7-18) mg/dL Creatinine (0.55-1.02) mg/dL Est Cr Clr Drug Dosing mL/min Estimated GFR (MDRD) (>60) mL/min BUN/Creatinine Ratio (14-18) Glucose (70-99) mg/dL POC Glucose 244 H 190 H (70-99) mg/dL Calcium (8.5-10.1) mg/dL Magnesium (1.8-2.4) mg/dL Total Bilirubin (0.2-1.0) mg/dL AST (15-37) U/L ALT (14-59) U/L Alkaline Phosphatase (46-116) U/L NT-Pro-B Natriuret Pep (0-125) pg/mL Total Protein (6.4-8.2) g/dl Albumin (3.4-5.0) g/dl Globulin gm/dL Albumin/Globulin Ratio (1-2) 05/26/21 05/26/21 05/26/21 Range/Units 05:30 06:40 08:44 WBC (3.98-10.04) K/mm3 RBC (3.98-5.22) M/mm3 Hgb (11.2-15.7) gm/dl Hct (34.1-44.9) % MCV (79.4-94.8) fl MCH (25.6-32.2) pg MCHC (32.2-35.5) g/dl RDW Std Deviation (36.4-46.3) fL Plt Count (182-369) K/mm3 MPV (9.4-12.3) fl Neut % (Auto) (34.0-71.1) % Lymph % (Auto) (19.3-51.7) % Fleming % (Auto) (4.7-12.5) % Eos % (Auto) (0.7-5.8) Baso % (Auto) (0.1-1.2) % Neut # (Auto) (1.56-6.13) K/mm3 Lymph # (Auto) (1.18-3.74) K/mm3 Fleming # (Auto) (0.24-0.36) K/mm3 Eos # (Auto) (0.04-0.36) K/mm3 Baso # (Auto) (0.01-0.08) K/mm3 Sodium 139 (136-145) mEq/L Potassium 4.5 (3.5-5.1) mEq/L Chloride 100 (98-107) mEq/L Carbon Dioxide 33 H (21-32) mEq/L Anion Gap 10.5 (5-15) BUN 65 H (7-18) mg/dL Creatinine 2.3 H (0.55-1.02) mg/dL Est Cr Clr Drug Dosing 19.90 mL/min Estimated GFR (MDRD) 21 (>60) mL/min BUN/Creatinine Ratio 28.3 H (14-18) Glucose 199 H (70-99) mg/dL POC Glucose 179 H (70-99) mg/dL Calcium 8.6 (8.5-10.1) mg/dL Magnesium 2.1 (1.8-2.4) mg/dL Total Bilirubin 0.3 (0.2-1.0) mg/dL AST 16 (15-37) U/L ALT 17 (14-59) U/L Alkaline Phosphatase 63 (46-116) U/L NT-Pro-B Natriuret Pep 1285 H (0-125) pg/mL Total Protein 6.2 L (6.4-8.2) g/dl Albumin 2.4 L (3.4-5.0) g/dl Globulin 3.8 gm/dL Albumin/Globulin Ratio 0.6 L (1-2) 05/26/21 Range/Units 11:49 WBC (3.98-10.04) K/mm3 RBC (3.98-5.22) M/mm3 Hgb (11.2-15.7) gm/dl Hct (34.1-44.9) % MCV (79.4-94.8) fl MCH (25.6-32.2) pg MCHC (32.2-35.5) g/dl RDW Std Deviation (36.4-46.3) fL Plt Count (182-369) K/mm3 MPV (9.4-12.3) fl Neut % (Auto) (34.0-71.1) % Lymph % (Auto) (19.3-51.7) % Fleming % (Auto) (4.7-12.5) % Eos % (Auto) (0.7-5.8) Baso % (Auto) (0.1-1.2) % Neut # (Auto) (1.56-6.13) K/mm3 Lymph # (Auto) (1.18-3.74) K/mm3 Fleming # (Auto) (0.24-0.36) K/mm3 Eos # (Auto) (0.04-0.36) K/mm3 Baso # (Auto) (0.01-0.08) K/mm3 Sodium (136-145) mEq/L Potassium (3.5-5.1) mEq/L Chloride (98-107) mEq/L Carbon Dioxide (21-32) mEq/L Anion Gap (5-15) BUN (7-18) mg/dL Creatinine (0.55-1.02) mg/dL Est Cr Clr Drug Dosing mL/min Estimated GFR (MDRD) (>60) mL/min BUN/Creatinine Ratio (14-18) Glucose (70-99) mg/dL POC Glucose 197 H (70-99) mg/dL Calcium (8.5-10.1) mg/dL Magnesium (1.8-2.4) mg/dL Total Bilirubin (0.2-1.0) mg/dL AST (15-37) U/L ALT (14-59) U/L Alkaline Phosphatase (46-116) U/L NT-Pro-B Natriuret Pep (0-125) pg/mL Total Protein (6.4-8.2) g/dl Albumin (3.4-5.0) g/dl Globulin gm/dL Albumin/Globulin Ratio (1-2) Result Diagrams: 05/26/21 05:30 05/26/21 05:30 Sepsis Event Note - Evaluation Sepsis Screening Result: No Definite Risk - Focused Exam Vital Signs: Vital Signs Temp Pulse Resp BP Pulse Ox Pulse Ox 05/26/21 11:53 97.5 F 64 22 H 113/58 L 93 L 05/26/21 08:47 97.9 F 66 18 114/68 97 05/26/21 08:36 98 05/26/21 05:10 97.3 F 61 18 112/40 L 95 - Problem List & Annotations (1) INDIRA (acute kidney injury) SNOMED Code(s): 61528851, 55458819 Code(s): N17.9 - ACUTE KIDNEY FAILURE, UNSPECIFIED Status: Acute Priority: High Current Visit: Yes (2) Acute hypoxemic respiratory failure SNOMED Code(s): 225640268 Code(s): J96.01 - ACUTE RESPIRATORY FAILURE WITH HYPOXIA Status: Acute Priority: High Current Visit: Yes (3) Elevated troponin SNOMED Code(s): 185989002, 931777976, 821462690 Code(s): R77.8 - OTHER SPECIFIED ABNORMALITIES OF PLASMA PROTEINS Status: Acute Priority: Medium Current Visit: Yes (4) Suspected CHF (congestive heart failure) SNOMED Code(s): 145526625, 747092460 Code(s): R09.89 - OTH SYMPTOMS AND SIGNS INVOLVING THE CIRC AND RESP SYSTEMS Status: Acute Priority: High Current Visit: Yes (5) CKD (chronic kidney disease) stage 3, GFR 30-59 ml/min SNOMED Code(s): 507013144 Code(s): N18.30 - CHRONIC KIDNEY DISEASE, STAGE 3 UNSPECIFIED Status: Chronic Priority: High Current Visit: Yes Qualifiers: Chronic kidney disease stage 3 subtype: stage 3b (GFR 30-44) Qualified Code(s): N18.32 - Chronic kidney disease, stage 3b (6) Obesity SNOMED Code(s): 544841749, 774753528 Code(s): E66.9 - OBESITY, UNSPECIFIED Status: Chronic Priority: Medium Current Visit: Yes Qualifiers: Obesity type: unspecified obesity type Obesity classification: adult class 3 (BMI >= 40) Serious obesity comorbidity presence: with serious comorbidity Body mass index: BMI 40.0-44.9 Qualified Code(s): E66.01 - Morbid (severe) obesity due to excess calories; Z68.41 - Body mass index [BMI] 40.0-44.9, adult (7) Type II diabetes mellitus SNOMED Code(s): 26930725 Code(s): E11.9 - TYPE 2 DIABETES MELLITUS WITHOUT COMPLICATIONS Status: Chronic Priority: High Current Visit: Yes Qualifiers: Diabetes mellitus exterminator helper termite insulin use: with exterminator helper termite use Diabetes mellitus complication status: with other specified complication Qualified Code(s): E11.69 - Type 2 diabetes mellitus with other specified complication; Z79.4 - residential (current) use of insulin - Problem List Review Problem List Initiated/Reviewed/Updated: Yes - My Orders Last 24 Hours: My Active Orders 05/27/21 05:11 CBC WITH AUTO DIFF [HEME] DAILY COMPREHENSIVE METABOLIC PN,CMP [CHEM] DAILY MAGNESIUM [CHEM] DAILY - Assessment Assessment:: 05/20/2021 This is a 65-year-old female who was admitted to the floor for concerns over new onset CHF. Patient is requiring 3 L of oxygen currently but states she does not feel too short of breath with this. She is currently receiving 40 mg IV p ush daily Lasix and has not had too much output with this. We will therefore increase her to 60 mg twice daily IV push with diuretic scheduling. Will monitor I's and O's and daily weights. She does report a history of asthma and so we will add in as needed albuterol MDI and DuoNeb's. RT is consulted and working on weaning patient. Echocardiogram was obtained today and is pending. A1c was 7.9 and we will continue to hold her Metformin and prescribe long-acting insulin per her home dosing and also sliding scale insulin as needed. Troponin has improved from admission to 0.162. This is likely secondary to demand ischemia. BUN is increased to 25 and creatinine is 1.9. GFR is 26. Glucose has been between 202 and 207. Magnesium is 2.2. proBNP on recheck was 6926. We will hold the patient's Cozaar and continue to diurese. Will address plan pending on renal stability and output. Length of stay likely 2-3 more days. 05/21/2021 65-year-old female admitted to the floor for possible CHF exacerbation. No known history of CHF but it is now confirmed by echocardiogram with a EF of 45% and global mildly decreased left ventricular systolic function. There is also concentric left ventricular hypertrophy and a severe aortic stenosis noted. Patient will need to follow-up with cardiology regarding her aortic stenosis after discharge. She continues to have rather unimpressive urine output. She is down 5 pounds from admission. There is no leukocytosis and her hemoglobin is 12.0 with a hematocrit of 39.0. Platelets are 140. Sodium has increased to 14 0. Potassium 4.3. Chloride 103. Carbon dioxide 30. Anion gap is 11.3. BUN is 39. Creatinine 2.2. GFR is 22. Glucose has been between 152 and 222. Calcium is 7.9. Troponin has improved to 0.146. Suspect this is demand ischemia. She will be placed on BiPAP nocturnally and as needed with naps. Otherwise she reports she feels better today. No acute concerns. Plan will be to continue diuresis and wean with oxygen as patient tolerates. She is currently on 3 L. Likely discharge in 2 to 3 days pending improvement. 05/23/2021 65-year-old female who admitted to the medical floor for concerns of possible congestive heart failure. No history of congestive heart failure however echo showed an EF of 45% and decreased left ventricular systolic function with severe aortic stenosis. Again, patient will be recommended to follow-up with sorority mother regarding aortic stenosis once discharged from the hospital. Lasix was increased to 80 mg twice daily yesterday. Patient is down 3 pounds in the past 24 hours and -1605 mL per charted intake and output. She is refusing her BiPAP. She continues on oxygen at 2 L per nasal cannula. Continues to have crackles noted in her lungs as well as inspiratory and expiratory wheezing. Denies any complaints. Labs are essentially unchanged other than creatinine down slightly. We will continue to diurese the patient and wean the oxygen. Patient will likely be here through the weekend. 05/26/2021 65-year-old female who is on the medical floor with complaints of shortness of breath. Was found to have hypoxemia and congestive heart failure with an EF of 45% and severe aortic stenosis. Patient has been receiving IV diuresis. She is also on fluid restriction. Will need to follow-up with cardiology once discharged from the hospital due to aortic stenosis. Patient request to follow- up with sorority mother in [place]. Lasix was held today due to elevated creatinine levels. Patient will also likely need to follow-up with nephrology. Repeat chest x-ray from May 24, 2021 reveals heart size is slightly less prominent than seen on prior chest x-ray. Upper mediastinum within normal limits. Lungs are clear with no acute parenchymal change. Bony structures show nothing acute. Hematology is essentially unremarkable. Chemistry reveals a sodium of 139, potassium 4.5, carbon dioxide 33, anion gap 10.5, BUN 65, creatinine 2.3, GFR 21, proBNP 1285. Patient's weight today was up approximately 1-1/2 pounds. Intake and output reveals -200 mL over the past 24 hours. - Plan Plan:: 65-year-old female who presents to the emergency department with a chief complaint of cough and difficulty breathing found to be hypoxic requiring supplemental oxygen. Referred for CHF exacerbation. 1. Acute hypoxic respiratory failure. Secondary to acute CHF exacerbation. In the setting of severe aortic stenosis. No on home oxygen Hold Lasix today Fluid restriction of 2 L/day. Daily weights by standing scale only. RT consult. Bronchodilators as necessary. Wean supplemental oxygen as tolerated. Daily ambulation saturation trials. Nocturnal BiPAP. 2. Acute CHF exacerbation. Plan as above. Echo -EF of 45 %; global and mildly decreased left ventricle regular systolic function; probable bicuspid aortic valve, severe aortic stenosis with PV 4.34m/s, MG 42mmhg, ASHVIN 0.98cm2, DI 0.26. Moderate AI. Follow-up with cardiology regarding aortic stenosis once she is discharged from the hospital She is on lasix 3. Type 2 diabetes mellitus. Hold metformin. Continue hospital hyperglycemia protocol. hemoglobin A1c 7.9 Dietitian and diabetes education. 3. Mild elevated troponin. Likely secondary to supply demand mismatch in the setting of hypoxia and CKD. Patient without chest pain. No EKG changes. No need for stomach anticoagulation currently. 4. INDIRA on CKD stage III nearly stage IV. Creatinine 2.1 today. Creatinine 1.2 on November 22, 2019. Avoid nephrotoxins. Renally dose medications if appropriate. Holding Metformin. Monitor volume status as she is requiring active diuresis. Decreased lasix Repeat renal function in morning Follow-up with nephrology regarding chronic renal failure when she is discharged from the hospital. 5. Bronchitis? Patient complains of cough with yellowish sputum Chest x-ray pending Azithromycin 500 mg for 3 - 5 days CODE STATUS: Full code. DVT prophylaxis with heparin and SCDs. Disposition: Patient likely here greater than 96 hours due to needed diuresis with IV Lasix and titration of oxygen PT OT Follow with PCP, sorority mother, nephrology
[2021-05-26] MEDS: Benzonatate 100 MG Cap PO PRN ×2 (14:38→21:52)
[2021-05-26] MEDS: Simvastatin 40 MG Tab PO SCH (21:52)
[2021-05-27] MEDS: guaiFENesin 100 MG/5 ML Soln 10 ML UD Cup PO SCH ×4 (04:16→21:35)
[2021-05-27] MEDS: Heparin Sodium 5,000 Units/ML Vial SUBCUT SCH ×3 (04:16→21:35)
[2021-05-27] MEDS ORDERED: Furosemide 40 MG/4 ML VIAL IVPUSH ONE (08:01)
--- NOTE | 2021-05-27 08:04 | PCM.PN ---
- General Info Date of Service: 05/27/21 Admission Dx/Problem (Free Text): Admission Diagnosis/Problem Admission Diagnosis/Problem CHF, Congestive heart failure Functional Status: Reports: Pain Controlled, Tolerating Diet, Ambulating, Urinating, Incentive Spirometry, Other (Acapella ). Denies: New Symptoms - Review of Systems General: Reports: No Symptoms. Denies: Fever, Weakness, Fatigue, Malaise, Chills HEENT: Reports: No Symptoms. Denies: Glasses, Visual Changes Pulmonary: Reports: Shortness of Breath, Cough. Denies: Pleuritic Chest Pain, Sputum, Wheezing Cardiovascular: Reports: Dyspnea on Exertion, Edema (trace ). Denies: Chest Pain, Palpitations Gastrointestinal: Reports: Decreased Appetite. Denies: Abdominal Pain, Constipation, Diarrhea, Nausea, Vomiting Genitourinary: Reports: No Symptoms. Denies: Pain Musculoskeletal: Reports: No Symptoms Skin: Reports: No Symptoms. Denies: Cyanosis Neurological: Reports: No Symptoms. Denies: Confusion, Dizziness, Headache, Numbness, Pre-Existing Deficit, Seizure, Syncope, Tingling, Trouble Speaking, Difficulty Walking, Weakness, Gait Disturbance Psychiatric: Reports: No Symptoms - Patient Data Vitals - Most Recent: Last Vital Signs Temp 97.7 F 05/27/21 07:59 Pulse 56 L 05/27/21 07:59 Resp 20 05/27/21 07:59 BP 133/67 05/27/21 07:59 Pulse Ox 95 05/27/21 07:59 Weight - Most Recent: 228 lb 12.8 oz I&O - Last 24 Hours: Intake & Output 05/26/21 05/27/21 05/27/21 22:59 06:59 14:59 Intake Total 800 200 Output Total 1000 400 Balance -200 -200 Lab Results Last 24 Hours: Laboratory Results - last 24 hr 05/26/21 05/26/21 05/26/21 Range/Units 08:44 11:49 17:39 WBC (3.98-10.04) K/mm3 RBC (3.98-5.22) M/mm3 Hgb (11.2-15.7) gm/dl Hct (34.1-44.9) % MCV (79.4-94.8) fl MCH (25.6-32.2) pg MCHC (32.2-35.5) g/dl RDW Std Deviation (36.4-46.3) fL Plt Count (182-369) K/mm3 MPV (9.4-12.3) fl Neut % (Auto) (34.0-71.1) % Lymph % (Auto) (19.3-51.7) % Weber % (Auto) (4.7-12.5) % Eos % (Auto) (0.7-5.8) Baso % (Auto) (0.1-1.2) % Neut # (Auto) (1.56-6.13) K/mm3 Lymph # (Auto) (1.18-3.74) K/mm3 Weber # (Auto) (0.24-0.36) K/mm3 Eos # (Auto) (0.04-0.36) K/mm3 Baso # (Auto) (0.01-0.08) K/mm3 Sodium (136-145) mEq/L Potassium (3.5-5.1) mEq/L Chloride (98-107) mEq/L Carbon Dioxide (21-32) mEq/L Anion Gap (5-15) BUN (7-18) mg/dL Creatinine (0.55-1.02) mg/dL Est Cr Clr Drug Dosing mL/min Estimated GFR (MDRD) (>60) mL/min BUN/Creatinine Ratio (14-18) Glucose (70-99) mg/dL POC Glucose 197 H 233 H (70-99) mg/dL Calcium (8.5-10.1) mg/dL Magnesium (1.8-2.4) mg/dL Total Bilirubin (0.2-1.0) mg/dL AST (15-37) U/L ALT (14-59) U/L Alkaline Phosphatase (46-116) U/L NT-Pro-B Natriuret Pep 1285 H (0-125) pg/mL Total Protein (6.4-8.2) g/dl Albumin (3.4-5.0) g/dl Globulin gm/dL Albumin/Globulin Ratio (1-2) 05/26/21 05/27/21 05/27/21 Range/Units 21:50 05:22 05:22 WBC 9.00 (3.98-10.04) K/mm3 RBC 4.07 (3.98-5.22) M/mm3 Hgb 11.0 L (11.2-15.7) gm/dl Hct 35.8 (34.1-44.9) % MCV 88.0 (79.4-94.8) fl MCH 27.0 (25.6-32.2) pg MCHC 30.7 L (32.2-35.5) g/dl RDW Std Deviation 41.6 (36.4-46.3) fL Plt Count 185 (182-369) K/mm3 MPV 13.5 H (9.4-12.3) fl Neut % (Auto) 55.2 (34.0-71.1) % Lymph % (Auto) 30.0 (19.3-51.7) % Weber % (Auto) 8.9 (4.7-12.5) % Eos % (Auto) 4.6 (0.7-5.8) Baso % (Auto) 0.4 (0.1-1.2) % Neut # (Auto) 4.97 (1.56-6.13) K/mm3 Lymph # (Auto) 2.70 (1.18-3.74) K/mm3 Weber # (Auto) 0.80 H (0.24-0.36) K/mm3 Eos # (Auto) 0.41 H (0.04-0.36) K/mm3 Baso # (Auto) 0.04 (0.01-0.08) K/mm3 Sodium 139 (136-145) mEq/L Potassium 4.3 (3.5-5.1) mEq/L Chloride 101 (98-107) mEq/L Carbon Dioxide 34 H (21-32) mEq/L Anion Gap 8.3 (5-15) BUN 77 H (7-18) mg/dL Creatinine 2.4 H (0.55-1.02) mg/dL Est Cr Clr Drug Dosing 19.07 mL/min Estimated GFR (MDRD) 20 (>60) mL/min BUN/Creatinine Ratio 32.1 H (14-18) Glucose 208 H (70-99) mg/dL POC Glucose 147 H (70-99) mg/dL Calcium 8.7 (8.5-10.1) mg/dL Magnesium 2.4 (1.8-2.4) mg/dL Total Bilirubin 0.2 (0.2-1.0) mg/dL AST 15 (15-37) U/L ALT 19 (14-59) U/L Alkaline Phosphatase 58 (46-116) U/L NT-Pro-B Natriuret Pep (0-125) pg/mL Total Protein 5.8 L (6.4-8.2) g/dl Albumin 2.3 L (3.4-5.0) g/dl Globulin 3.5 gm/dL Albumin/Globulin Ratio 0.7 L (1-2) 05/27/21 Range/Units 06:36 WBC (3.98-10.04) K/mm3 RBC (3.98-5.22) M/mm3 Hgb (11.2-15.7) gm/dl Hct (34.1-44.9) % MCV (79.4-94.8) fl MCH (25.6-32.2) pg MCHC (32.2-35.5) g/dl RDW Std Deviation (36.4-46.3) fL Plt Count (182-369) K/mm3 MPV (9.4-12.3) fl Neut % (Auto) (34.0-71.1) % Lymph % (Auto) (19.3-51.7) % Weber % (Auto) (4.7-12.5) % Eos % (Auto) (0.7-5.8) Baso % (Auto) (0.1-1.2) % Neut # (Auto) (1.56-6.13) K/mm3 Lymph # (Auto) (1.18-3.74) K/mm3 Weber # (Auto) (0.24-0.36) K/mm3 Eos # (Auto) (0.04-0.36) K/mm3 Baso # (Auto) (0.01-0.08) K/mm3 Sodium (136-145) mEq/L Potassium (3.5-5.1) mEq/L Chloride (98-107) mEq/L Carbon Dioxide (21-32) mEq/L Anion Gap (5-15) BUN (7-18) mg/dL Creatinine (0.55-1.02) mg/dL Est Cr Clr Drug Dosing mL/min Estimated GFR (MDRD) (>60) mL/min BUN/Creatinine Ratio (14-18) Glucose (70-99) mg/dL POC Glucose 187 H (70-99) mg/dL Calcium (8.5-10.1) mg/dL Magnesium (1.8-2.4) mg/dL Total Bilirubin (0.2-1.0) mg/dL AST (15-37) U/L ALT (14-59) U/L Alkaline Phosphatase (46-116) U/L NT-Pro-B Natriuret Pep (0-125) pg/mL Total Protein (6.4-8.2) g/dl Albumin (3.4-5.0) g/dl Globulin gm/dL Albumin/Globulin Ratio (1-2) Med Orders - Current: Current Medications Acetaminophen (Acetaminophen 325 Mg Tab) 650 mg PO Q4H PRN PRN Reason: Pain (Mild 1-3)/fever Albuterol (Albuterol 6.7 Gm Inhaler) 0 gm INH Q2H PRN PRN Reason: SOB/Wheezing Albuterol/Ipratropium (Albuterol/Ipratropium 3.0-0.5 Mg/3 Ml Neb Soln) 3 ml NEB QIDRT PRN PRN Reason: SOB/Wheezing Last Admin: 05/23/21 21:01 Dose: 3 ml Documented by: Aspirin (Aspirin 81 Mg Tab.Ec) 81 mg PO DAILY RAUDEL Last Admin: 05/26/21 08:46 Dose: 81 mg Documented by: Azithromycin (Azithromycin 250 Mg Tab) 500 mg PO DAILY RAUDEL Stop: 05/29/21 09:46 Last Admin: 05/26/21 08:46 Dose: 500 mg Documented by: Benzonatate (Benzonatate 100 Mg Cap) 100 mg PO Q8H PRN PRN Reason: Cough Last Admin: 05/26/21 21:52 Dose: 100 mg Documented by: Docusate Sodium (Docusate Sodium 100 Mg Cap) 100 mg PO BID PRN PRN Reason: Constipation Last Admin: 05/26/21 08:46 Dose: 100 mg Documented by: Furosemide (Furosemide 20 Mg/2 Ml Vial) 20 mg IVPUSH BIDDIURETIC [facility] Guaifenesin (Guaifenesin 100 Mg/5 Ml Soln 10 Ml Ud Cup) 200 mg PO Q6H [facility] Last Admin: 05/27/21 04:16 Dose: 200 mg Documented by: Heparin Sodium (Porcine) (Heparin Sodium 5,000 Units/Ml Vial) 5,000 units SUBCUT Q8H [facility] Last Admin: 05/27/21 04:16 Dose: 5,000 units Documented by: Promethazine HCl 12.5 mg/ (Sodium Chloride) 50.5 mls @ 100 mls/hr IV Q6H PRN PRN Reason: Nausea/Vomiting Insulin Glargine (Insulin Glargine,Hum.Rec.Anlog 100 Unit/Ml 3 Ml Pen) 10 unit SUBCUT DAILY [facility] Last Admin: 05/26/21 08:47 Dose: 10 unit Documented by: Insulin Human Lispro (Insulin Lispro 100 Unit/Ml 3 Ml Kwikpen) 0 unit SUBCUT QIDACANDBED [facility]; Protocol Last Admin: 05/26/21 21:53 Dose: Not Given Documented by: Simvastatin (Simvastatin 40 Mg Tab) 40 mg PO BEDTIME [facility] Last Admin: 05/26/21 21:52 Dose: 40 mg Documented by: Sodium Chloride (Sodium Chloride 0.9% 10 Ml Syringe) 10 ml FLUSH ASDIRECTED PRN PRN Reason: Keep Vein Open Last Admin: 05/19/21 14:01 Dose: 10 ml Documented by: Discontinued Medications Albuterol (Albuterol 0.083% 2.5 Mg/3 Ml Neb Soln) 2.5 mg NEB ONETIME ONE Stop: 05/19/21 12:28 Last Admin: 05/19/21 12:52 Dose: 2.5 mg Documented by: Furosemide (Furosemide 40 Mg/4 Ml Vial) 40 mg IVPUSH NOW ONE Stop: 05/19/21 13:00 Last Admin: 05/19/21 14:01 Dose: 40 mg Documented by: Furosemide (Furosemide 40 Mg/4 Ml Vial) 40 mg IVPUSH BID [facility] Last Admin: 05/20/21 08:33 Dose: 40 mg Documented by: Furosemide (Furosemide 40 Mg/4 Ml Vial) 60 mg IVPUSH BIDDIURETIC [facility] Last Admin: 05/22/21 05:41 Dose: 60 mg Documented by: Furosemide (Furosemide 40 Mg/4 Ml Vial) 80 mg IVPUSH BIDDIURETIC [facility] Last Admin: 05/25/21 06:36 Dose: 80 mg Documented by: Furosemide (Furosemide 40 Mg/4 Ml Vial) 40 mg IVPUSH BIDDIURETIC [facility] Last Admin: 05/26/21 05:16 Dose: 40 mg Documented by: Furosemide (Furosemide 20 Mg/2 Ml Vial) 20 mg IVPUSH BID ONE Stop: 05/26/21 08:16 Last Admin: 05/26/21 08:47 Dose: 20 mg Documented by: Furosemide (Furosemide 40 Mg/4 Ml Vial) 40 mg IVPUSH NOW ONE Stop: 05/27/21 08:02 Guaifenesin (Guaifenesin 100 Mg/5 Ml Soln 10 Ml Ud Cup) 200 mg PO Q8H [facility] Last Admin: 05/25/21 10:44 Dose: 200 mg Documented by: Heparin Sodium (Porcine) (Heparin Sodium 5,000 Units/Ml Vial) 5,000 units SUBCUT Q8H [facility] Last Admin: 05/19/21 22:11 Dose: Not Given Documented by: Magnesium Sulfate 4 gm/ Premix 50 mls @ 12.5 mls/hr IV ONETIME ONE Stop: 05/19/21 17:37 Last Admin: 05/19/21 14:42 Dose: 12.5 mls/hr Documented by: Insulin Glargine (Insulin Glargine,Hum.Rec.Anlog 100 Unit/Ml 3 Ml Pen) 35 unit SUBCUT BID [facility] Last Admin: 05/20/21 09:30 Dose: Not Given Documented by: Insulin Glargine (Insulin Glargine,Hum.Rec.Anlog 100 Unit/Ml 3 Ml Pen) 10 unit SUBCUT ONETIME ONE Stop: 05/20/21 13:31 Last Admin: 05/20/21 13:37 Dose: 10 units Documented by: Losartan Potassium (Losartan 50 Mg Tab) 50 mg PO DAILY [facility] Last Admin: 05/20/21 08:33 Dose: 50 mg Documented by: Magnesium Hydroxide (Magnesium Hydroxide 400 Mg/5 Ml Susp 30 Ml Cup) 30 ml PO ONETIME ONE Stop: 05/21/21 06:52 Last Admin: 05/21/21 07:26 Dose: 30 ml Documented by: Magnesium Hydroxide (Magnesium Hydroxide 400 Mg/5 Ml Susp 30 Ml Cup) 30 ml PO ONETIME ONE Stop: 05/25/21 09:45 Last Admin: 05/25/21 10:43 Dose: 30 ml Documented by: Ondansetron HCl (Ondansetron 4 Mg Tab.Dis) 4 mg PO Q4H PRN PRN Reason: nausea, able to take PO Ondansetron HCl (Ondansetron 4 Mg/2 Ml Sdv) 4 mg IV Q4H PRN PRN Reason: Nausea/Vomiting - Exam Quality Assessment: Supplemental Oxygen (1L), DVT Prophylaxis. No: Urine [place] General: Alert, Oriented, Cooperative, No Acute Distress HEENT: Pupils Equal, Pupils Reactive, Mucous Membr. Moist/[place] Neck: Supple, Trachea Midline Lungs: Normal Respiratory Effort, Decreased Breath Sounds, Crackles. No: Rhonchi, Wheezing Cardiovascular: Regular Rate, Regular Rhythm, Murmurs (systolic ) GI/Abdominal Exam: Normal Bowel Sounds, Soft, Non-Tender, No Distention (Female) Exam: Deferred Back Exam: Normal Inspection, Full Range of Motion Extremities: Normal Inspection, Normal Range of Motion, Non-Tender, Normal Capillary Refill, Pedal Edema (trace ) Skin: Warm, Dry, Intact Neurological: No New Focal Deficit Psy/Mental Status: Alert, Normal Affect, Normal Mood - Patient Data Lab Results Last 24 hrs: Laboratory Results - last 24 hr 05/26/21 05/26/21 05/26/21 Range/Units 08:44 11:49 17:39 WBC (3.98-10.04) K/mm3 RBC (3.98-5.22) M/mm3 Hgb (11.2-15.7) gm/dl Hct (34.1-44.9) % MCV (79.4-94.8) fl MCH (25.6-32.2) pg MCHC (32.2-35.5) g/dl RDW Std Deviation (36.4-46.3) fL Plt Count (182-369) K/mm3 MPV (9.4-12.3) fl Neut % (Auto) (34.0-71.1) % Lymph % (Auto) (19.3-51.7) % Weber % (Auto) (4.7-12.5) % Eos % (Auto) (0.7-5.8) Baso % (Auto) (0.1-1.2) % Neut # (Auto) (1.56-6.13) K/mm3 Lymph # (Auto) (1.18-3.74) K/mm3 Weber # (Auto) (0.24-0.36) K/mm3 Eos # (Auto) (0.04-0.36) K/mm3 Baso # (Auto) (0.01-0.08) K/mm3 Sodium (136-145) mEq/L Potassium (3.5-5.1) mEq/L Chloride (98-107) mEq/L Carbon Dioxide (21-32) mEq/L Anion Gap (5-15) BUN (7-18) mg/dL Creatinine (0.55-1.02) mg/dL Est Cr Clr Drug Dosing mL/min Estimated GFR (MDRD) (>60) mL/min BUN/Creatinine Ratio (14-18) Glucose (70-99) mg/dL POC Glucose 197 H 233 H (70-99) mg/dL Calcium (8.5-10.1) mg/dL Magnesium (1.8-2.4) mg/dL Total Bilirubin (0.2-1.0) mg/dL AST (15-37) U/L ALT (14-59) U/L Alkaline Phosphatase (46-116) U/L NT-Pro-B Natriuret Pep 1285 H (0-125) pg/mL Total Protein (6.4-8.2) g/dl Albumin (3.4-5.0) g/dl Globulin gm/dL Albumin/Globulin Ratio (1-2) 05/26/21 05/27/21 05/27/21 Range/Units 21:50 05:22 05:22 WBC 9.00 (3.98-10.04) K/mm3 RBC 4.07 (3.98-5.22) M/mm3 Hgb 11.0 L (11.2-15.7) gm/dl Hct 35.8 (34.1-44.9) % MCV 88.0 (79.4-94.8) fl MCH 27.0 (25.6-32.2) pg MCHC 30.7 L (32.2-35.5) g/dl RDW Std Deviation 41.6 (36.4-46.3) fL Plt Count 185 (182-369) K/mm3 MPV 13.5 H (9.4-12.3) fl Neut % (Auto) 55.2 (34.0-71.1) % Lymph % (Auto) 30.0 (19.3-51.7) % Weber % (Auto) 8.9 (4.7-12.5) % Eos % (Auto) 4.6 (0.7-5.8) Baso % (Auto) 0.4 (0.1-1.2) % Neut # (Auto) 4.97 (1.56-6.13) K/mm3 Lymph # (Auto) 2.70 (1.18-3.74) K/mm3 Weber # (Auto) 0.80 H (0.24-0.36) K/mm3 Eos # (Auto) 0.41 H (0.04-0.36) K/mm3 Baso # (Auto) 0.04 (0.01-0.08) K/mm3 Sodium 139 (136-145) mEq/L Potassium 4.3 (3.5-5.1) mEq/L Chloride 101 (98-107) mEq/L Carbon Dioxide 34 H (21-32) mEq/L Anion Gap 8.3 (5-15) BUN 77 H (7-18) mg/dL Creatinine 2.4 H (0.55-1.02) mg/dL Est Cr Clr Drug Dosing 19.07 mL/min Estimated GFR (MDRD) 20 (>60) mL/min BUN/Creatinine Ratio 32.1 H (14-18) Glucose 208 H (70-99) mg/dL POC Glucose 147 H (70-99) mg/dL Calcium 8.7 (8.5-10.1) mg/dL Magnesium 2.4 (1.8-2.4) mg/dL Total Bilirubin 0.2 (0.2-1.0) mg/dL AST 15 (15-37) U/L ALT 19 (14-59) U/L Alkaline Phosphatase 58 (46-116) U/L NT-Pro-B Natriuret Pep (0-125) pg/mL Total Protein 5.8 L (6.4-8.2) g/dl Albumin 2.3 L (3.4-5.0) g/dl Globulin 3.5 gm/dL Albumin/Globulin Ratio 0.7 L (1-2) 05/27/ Range/Units 06:36 WBC (3.98-10.04) K/mm3 RBC (3.98-5.22) M/mm3 Hgb (11.2-15.7) gm/dl Hct (34.1-44.9) % MCV (79.4-94.8) fl MCH (25.6-32.2) pg MCHC (32.2-35.5) g/dl RDW Std Deviation (36.4-46.3) fL Plt Count (182-369) K/mm3 MPV (9.4-12.3) fl Neut % (Auto) (34.0-71.1) % Lymph % (Auto) (19.3-51.7) % Weber % (Auto) (4.7-12.5) % Eos % (Auto) (0.7-5.8) Baso % (Auto) (0.1-1.2) % Neut # (Auto) (1.56-6.13) K/mm3 Lymph # (Auto) (1.18-3.74) K/mm3 Weber # (Auto) (0.24-0.36) K/mm3 Eos # (Auto) (0.04-0.36) K/mm3 Baso # (Auto) (0.01-0.08) K/mm3 Sodium (136-145) mEq/L Potassium (3.5-5.1) mEq/L Chloride (98-107) mEq/L Carbon Dioxide (21-32) mEq/L Anion Gap (5-15) BUN (7-18) mg/dL Creatinine (0.55-1.02) mg/dL Est Cr Clr Drug Dosing mL/min Estimated GFR (MDRD) (>60) mL/min BUN/Creatinine Ratio (14-18) Glucose (70-99) mg/dL POC Glucose 187 H (70-99) mg/dL Calcium (8.5-10.1) mg/dL Magnesium (1.8-2.4) mg/dL Total Bilirubin (0.2-1.0) mg/dL AST (15-37) U/L ALT (14-59) U/L Alkaline Phosphatase (46-116) U/L NT-Pro-B Natriuret Pep (0-125) pg/mL Total Protein (6.4-8.2) g/dl Albumin (3.4-5.0) g/dl Globulin gm/dL Albumin/Globulin Ratio (1-2) Result Diagrams: 05/27/21 05:22 05/27/21 05:22 Sepsis Event Note - Evaluation Sepsis Screening Result: No Definite Risk - Focused Exam Vital Signs: Vital Signs Temp Pulse Resp BP Pulse Ox Pulse Ox 05/27/21 07:59 97.7 F 56 L 20 133/67 95 05/27/21 07:07 97.2 F 57 L 20 145/82 H 93 L 05/27/21 04:07 97.7 F 60 16 125/58 L 94 L 05/26/21 23:35 98.4 F 74 20 115/74 94 L 05/26/21 22:45 86 L 05/26/21 21:48 98.4 F 66 22 H 128/98 H 94 L - Problem List & Annotations (1) Acute hypoxemic respiratory failure SNOMED Code(s): 257331808 Code(s): J96.01 - ACUTE RESPIRATORY FAILURE WITH HYPOXIA Status: Acute Priority: High Current Visit: Yes (2) CKD (chronic kidney disease) stage 3, GFR 30-59 ml/min SNOMED Code(s): 598990292 Code(s): N18.30 - CHRONIC KIDNEY DISEASE, STAGE 3 UNSPECIFIED Status: Chronic Priority: High Current Visit: Yes Qualifiers: Chronic kidney disease stage 3 subtype: stage 3b (GFR 30-44) Qualified Code(s): N18.32 - Chronic kidney disease, stage 3b (3) INDIRA (acute kidney injury) SNOMED Code(s): 29898813, 35217880 Code(s): N17.9 - ACUTE KIDNEY FAILURE, UNSPECIFIED Status: Acute Priority: High Current Visit: Yes (4) Elevated troponin SNOMED Code(s): 099540845, 272062070, 367637458 Code(s): R77.8 - OTHER SPECIFIED ABNORMALITIES OF PLASMA PROTEINS Status: Acute Priority: Medium Current Visit: Yes (5) Type II diabetes mellitus SNOMED Code(s): 26155326 Code(s): E11.9 - TYPE 2 DIABETES MELLITUS WITHOUT COMPLICATIONS Status: Chronic Priority: High Current Visit: Yes Qualifiers: 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: 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 care home use Diabetes mellitus complication status: with other specified complication Qualified Code(s): E11.69 - Type 2 diabetes mellitus with other specified complication; Z79.4 - half-way (current) use of insulin (6) Obesity SNOMED Code(s): 295023880, 768089541 Code(s): E66.9 - OBESITY, UNSPECIFIED Status: Chronic Priority: Medium Current Visit: Yes Qualifiers: Obesity type: unspecified obesity type Obesity classification: adult class 3 (BMI >= 40) Serious obesity comorbidity presence: with serious comorbidity Body mass index: BMI 40.0-44.9 Qualified Code(s): E66.01 - Morbid (severe) obesity due to excess calories; Z68.41 - Body mass index [BMI] 40.0-44.9, adult (7) Bronchitis SNOMED Code(s): 08440515 Code(s): J40 - BRONCHITIS, NOT SPECIFIED ACUTE OR CHRONIC Status: Acute Priority: High Current Visit: Yes (8) Congestive heart failure SNOMED Code(s): 79380891 Code(s): I50.9 - HEART FAILURE, UNSPECIFIED Status: Acute Priority: High Current Visit: Yes Qualifiers: Heart failure type: unspecified Heart failure chronicity: acute Qualified Code(s): I50.9 - Heart failure, unspecified (9) Aortic stenosis with bicuspid valve SNOMED Code(s): 70140532 Code(s): Q23.0 - CONGENITAL STENOSIS OF AORTIC VALVE; Q23.1 - CONGENITAL INSUFFICIENCY OF AORTIC VALVE Status: Chronic Priority: High Current Visit: Yes - Problem List Review Problem List Initiated/Reviewed/Updated: Yes - My Orders Last 24 Hours: My Active Orders 05/27/21 14:00 Furosemide [Lasix] 20 mg IVPUSH BIDDIURETIC - Assessment Assessment:: 05/20/2021 This is a 65-year-old female who was admitted to the floor for concerns over new onset CHF. Patient is requiring 3 L of oxygen currently but states she does not feel too short of breath with this. She is currently receiving 40 mg IV push daily Lasix and has not had too much output with this. We will therefore increase her to 60 mg twice daily IV push with diuretic scheduling. Will monitor I's and O's and daily weights. She does report a history of asthma and so we will add in as needed albuterol MDI and DuoNeb's. RT is consulted and working on weaning patient. Echocardiogram was obtained today and is pending. A1c was 7.9 and we will continue to hold her Metformin and prescribe long-acting insulin per her home dosing and also sliding scale insulin as needed. Troponin has improved from admission to 0.162. This is likely secondary to demand ischemia. BUN is increased to 25 and creatinine is 1.9. GFR is 26. Glucose has been between 202 and 207. Magnesium is 2.2. proBNP on recheck was 6926. We will hold the patient's Cozaar and continue to diurese. Will address plan pending on renal stability and output. Length of stay likely 2-3 more days. 05/21/2021 65-year-old female admitted to the floor for possible CHF exacerbation. No known history of CHF but it is now confirmed by echocardiogram with a EF of 45% and global mildly decreased left ventricular systolic function. There is also concentric left ventricular hypertrophy and a severe aortic stenosis noted. Patient will need to follow-up with cardiology regarding her aortic stenosis after discharge. She continues to have rather unimpressive urine output. She is down 5 pounds from admission. There is no leukocytosis and her hemoglobin is 12.0 with a hematocrit of 39.0. Platelets are 140. Sodium has increased to 140. Potassium 4.3. Chloride 103. Carbon dioxide 30. Anion gap is 11.3. BUN is 39. Creatinine 2.2. GFR is 22. Glucose has been between 152 and 222. Calcium is 7.9. Troponin has improved to 0.146. Suspect this is demand ischemia. She will be placed on BiPAP nocturnally and as needed with naps. Otherwise she reports she feels better today. No acute concerns. Plan will be to continue diuresis and wean with oxygen as patient tolerates. She is currently on 3 L. Likely discharge in 2 to 3 days pending improvement. 05/23/2021 65-year-old female who admitted to the medical floor for concerns of possible congestive heart failure. No history of congestive heart failure however echo showed an EF of 45% and decreased left ventricular systolic function with severe aortic stenosis. Again, patient will be recommended to follow-up with cardio logist regarding aortic stenosis once discharged from the hospital. Lasix was increased to 80 mg twice daily yesterday. Patient is down 3 pounds in the past 24 hours and -1605 mL per charted intake and output. She is refusing her BiPAP. She continues on oxygen at 2 L per nasal cannula. Continues to have crackles noted in her lungs as well as inspiratory and expiratory wheezing. Denies any c omplaints. Labs are essentially unchanged other than creatinine down slightly. We will continue to diurese the patient and wean the oxygen. Patient will likely be here through the weekend. 05/26/2021 65-year-old female who is on the medical floor with complaints of shortness of breath. Was found to have hypoxemia and congestive heart failure with an EF of 45% and severe aortic stenosis. Patient has been receiving IV diuresis. She is also on fluid restriction. Will need to follow-up with cardiology once discharged from the hospital due to aortic stenosis. Patient request to follow- up with [facility] in [place]. Lasix was held today due to elevated creatinine levels. Patient will also likely need to follow-up with nephrology. Repeat chest x-ray from May 24, 2021 reveals heart size is slightly less prominent than seen on prior chest x-ray. Upper mediastinum within normal limits. Lungs are clear with no acute parenchymal change. Bony structures show nothing acute. Hematology is essentially unremarkable. Chemistry reveals a sodium of 139, potassium 4.5, carbon dioxide 33, anion gap 10.5, BUN 65, creatinine 2.3, GFR 21, proBNP 1285. Patient's weight today was up approximately 1-1/2 pounds. Intake and output reveals -200 mL over the past 24 hours. 05/27/2021 This is a 65-year-old female admitted to the floor for dyspnea and found to have new onset congestive heart failure. EF of 45% with severe aortic stenosis. She is also had a cough, which was productive and was started on azithromycin for possible bronchitis. She will need to follow-up with cardiology and nephrology, as she has acute on chronic renal failure. We have been actively trying to diurese the patient however per nursing patient's daughter has been bringing her food and drink, which has not been monitored. She is down approximately 10 pounds over the course of her stay. Continues to require 1 L of oxygen. We did attempt to wean today but this was unsuccessful. Labs today show a white count of 9.00. Hemoglobin is 11.0. Platelet 185,000. Sodium 139. Potassium 4.3. Chloride 101. Carbon dioxide 24. Anion gap 8.3. BUN is 77. Creatinine 2.4. GFR is 20. Glucose between 270 and 147. Calcium 8.7. Magnesium 2.4. Bilirubin 0.2. AST is 15, ALT 19, alkaline phosphatase 58. Protein is 5.8. Albumin is 2.3. Patient's daughter was in at bedside and we did discuss echo results and follow-up after this. We discussed the importance of following sodium and fluid restriction. Materials were printed online and drawings were made for patient and her daughter. Possible discharge tomorrow pending continued stability and lab results. - Plan Plan:: 65-year-old female who presents to the emergency department with a chief complaint of cough and difficulty breathing found to be hypoxic requiring supplemental oxygen. Referred for CHF exacerbation. 1. Acute hypoxic respiratory failure. New onset CHF exacerbation. In the setting of severe aortic stenosis. No on home oxygen Fluid restriction of 2 L/day. Daily weights by standing scale only. RT consult. Bronchodilators as necessary. Wean supplemental oxygen as tolerated. Daily ambulation saturation trials. Nocturnal BiPAP. 2. Acute CHF exacerbation. Plan as above. Echo -EF of 45 %; global and mildly decreased left ventricle regular systolic function; probable bicuspid aortic valve, severe aortic stenosis with PV 4.34m/s, MG 42mmhg, ASHVIN 0.98cm2, DI 0.26. Moderate AI. Follow-up with cardiology regarding aortic stenosis once she is discharged from the hospital She is on Lasix 3. Type 2 diabetes mellitus. Hold metformin. Continue hospital hyperglycemia protocol. Hemoglobin A1c 7.9 Dietitian and diabetes education. 3. Mild elevated troponin. Likely secondary to supply demand mismatch in the setting of hypoxia and CKD. Patient without chest pain. No EKG changes. No need for full strength anticoagulation currently. 4. INDIRA on CKD stage III nearly stage IV. Creatinine 2.4 today. Creatinine 1.2 on November 22, 2019. Avoid nephrotoxins. Renally dose medications if appropriate. Holding Metformin. Monitor volume status as she is requiring active diuresis. Decreased Lasix Repeat renal function in morning Follow-up with nephrology regarding chronic renal failure when she is discharged from the hospital. 5. Bronchitis ? Patient complains of cough with yellowish sputum Chest x-ray pending Azithromycin 500 mg for 3 - 5 days CODE STATUS: Full code. DVT prophylaxis with heparin and SCDs. Disposition: Patient likely here greater than 96 hours due to needed diuresis with IV Lasix and titration of oxygen PT OT Follow with PCP, transit man, nephrology
[2021-05-27] MEDS: Insulin Glargine,Hum.Rec.Anlog 100 UNIT/ML 3 ML Pen SUBCUT SCH (08:58)
[2021-05-27] MEDS: Insulin Lispro 100 Unit/ML 3 ML KwikPen SUBCUT SCH ×4 (08:59→21:35)
[2021-05-27] MEDS: Aspirin 81 MG Tab.EC PO SCH (09:00)
[2021-05-27] MEDS: Azithromycin 250 MG Tab PO SCH (09:01)
[2021-05-27] MEDS: Benzonatate 100 MG Cap PO PRN (11:25)
[2021-05-27] MEDS ORDERED: Furosemide 20 MG/2 ML VIAL IVPUSH SCH (14:00)
[2021-05-27] MEDS: Simvastatin 40 MG Tab PO SCH (21:35)
[2021-05-28] MEDS: Heparin Sodium 5,000 Units/ML Vial SUBCUT SCH (05:08)
[2021-05-28] MEDS: guaiFENesin 100 MG/5 ML Soln 10 ML UD Cup PO SCH ×2 (05:08→08:47)
[2021-05-28] MEDS ORDERED: Furosemide 20 MG Tab PO SCH (06:00)
[2021-05-28] MEDS: Aspirin 81 MG Tab.EC PO SCH (08:46)
[2021-05-28] MEDS: Azithromycin 250 MG Tab PO SCH (08:46)
[2021-05-28] MEDS: Insulin Glargine,Hum.Rec.Anlog 100 UNIT/ML 3 ML Pen SUBCUT SCH (08:47)
[2021-05-28] MEDS: Insulin Lispro 100 Unit/ML 3 ML KwikPen SUBCUT SCH (08:47)
--- NOTE | 2021-05-28 10:36 | PCM.DCSUM1 ---
Discharge Summary - Hospital Course HPI Initial Comments: Patient is a 65-year-old female with a past medical history as listed below who presents to the emergency department with a chief complaint of cough and difficulties breathing. Patient states that she was in her usual state of health up until about 3 or 4 days ago when she started to experience a rather nagging cough. She has not had any sputum production. No recent sick contacts that she knows of. No constitutional symptoms including fever. Denies any chest pain, chest pressure or pleurisy. No nausea or vomiting. No lightheadedness or dizziness. She has been able to tolerate food. No dysuria. No skin changes. Patient states that over the past couple of days her breathing has become more labored and it is difficult to walk within the house even very short distances without becoming winded. She has not endorsed any specific troubles while sleeping. She does not believe that her feet are any more swollen than what they usually are. She states that she is excessively thirsty but she knows this is due to her diabetes. 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 They believe that her heart was worked up for either a mild heart attack or heart failure but they cannot disclose any further information. She does not remember what facility she was in. When asked about diuretics, she states that she used to be on them but has since discontinued them. She cannot describe her reasoning for discontinuing them. In the emergency department, she presented with hypoxia down to 86% on room air. This was remedied by a couple liters of oxygen via nasal cannula. Chest x-ray showing mild volume overload. She has a degree of cardiomegaly which is apparent. proBNP was high at 10,000. Troponins mildly elevated in the setting of hypoxia. Patient was ultimately referred to the internal medicine service for further management. Patient was also given Lasix to augment diuresis in the ER. Diagnosis: Stroke: No - Discharge Data Discharge Date: 05/28/21 (Admit date: 05/19/2021) Discharge Disposition: Home, Self-Care 01 Condition: Good - Referral to Home Health Primary Care Physician: JOHN Vera - Discharge Diagnosis/Problem(s) (1) Acute hypoxemic respiratory failure SNOMED Code(s): 284553069 ICD Code: J96.01 - ACUTE RESPIRATORY FAILURE WITH HYPOXIA Status: Resolved Priority: High Current Visit: Yes (2) CKD (chronic kidney disease) stage 3, GFR 30-59 ml/min SNOMED Code(s): 275186005 ICD Code: N18.30 - CHRONIC KIDNEY DISEASE, STAGE 3 UNSPECIFIED Status: Chronic Priority: High Current Visit: Yes Qualifiers: Chronic kidney disease stage 3 subtype: stage 3b (GFR 30-44) Qualified Code(s): N18.32 - Chronic kidney disease, stage 3b (3) INDIRA (acute kidney injury) SNOMED Code(s): 98582654, 30333803 ICD Code: N17.9 - ACUTE KIDNEY FAILURE, UNSPECIFIED Status: Acute Priority: High Current Visit: Yes (4) Elevated troponin SNOMED Code(s): 919990124, 199982763, 726194706 ICD Code: R77.8 - OTHER SPECIFIED ABNORMALITIES OF PLASMA PROTEINS Status: Ruled-out Priority: Medium Current Visit: Yes (5) Type II diabetes mellitus SNOMED Code(s): 77101537 ICD Code: E11.9 - TYPE 2 DIABETES MELLITUS WITHOUT COMPLICATIONS Status: Chronic Priority: High Current Visit: Yes Qualifiers: 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 renewal inspector insulin use: with fpc use Diabetes mellitus complication status: with other specified complication Qualified Code(s): E11.69 - Type 2 diabetes mellitus with other specified complication; Z79.4 - senior living (current) use of insulin (6) Obesity SNOMED Code(s): 386178378, 424844552 ICD Code: E66.9 - OBESITY, UNSPECIFIED Status: Chronic Priority: Medium Current Visit: Yes Qualifiers: Obesity type: unspecified obesity type Obesity classification: adult class 3 (BMI >= 40) Serious obesity comorbidity presence: with serious comorbidity Body mass index: BMI 40.0-44.9 Qualified Code(s): E66.01 - Morbid (severe) obesity due to excess calories; Z68.41 - Body mass index [BMI] 40.0-44.9, adult (7) Bronchitis SNOMED Code(s): 93647856 ICD Code: J40 - BRONCHITIS, NOT SPECIFIED ACUTE OR CHRONIC Status: Acute Priority: High Current Visit: Yes (8) Congestive heart failure SNOMED Code(s): 22973299 ICD Code: I50.9 - HEART FAILURE, UNSPECIFIED Status: Acute Priority: High Current Visit: Yes Qualifiers: Heart failure type: unspecified Heart failure chronicity: acute Qualified Code(s): I50.9 - Heart failure, unspecified (9) Aortic stenosis with bicuspid valve SNOMED Code(s): 28333828 ICD Code: Q23.0 - CONGENITAL STENOSIS OF AORTIC VALVE; Q23.1 - CONGENITAL INSUFFICIENCY OF AORTIC VALVE Status: Chronic Priority: High Current Visit: Yes - Patient Summary/Data Consults: Consultations 05/19/21 17:22 Consult to Diabetic Nurse Specialist [CONS] Routine Consult to Aircraft Structural Repairer [CONS] Routine Respiratory Care Assess and Treatment [CONS] Routine Labs Pending at D/C: None Recommended Follow-up Testing/Procedures: Follow-up with primary care provider within 5 to 7 days of discharge, sooner if needed. * Patient's home Cozaar was discontinued as her GFR has been quite low. Please consider restarting this if her renal function improves. * Patient's home Metformin was discontinued due to low renal function. Consider restarting this if renal function improves. * Patient discharged on 20 mg twice daily Lasix. Please titrate this as needed. * Patient instructed to take her weight daily and recorded in a journal. She should contact her primary care provider if she notices a 3 pound weight gain in 1 day or 5 pound weight gain in 1 week. * Patient treated for bronchitis with azithromycin. No antibiotic prescribed at discharge as she completed treatment. * She will be prescribed as needed Tessalon Perles for cough. * Patient discharged on 2 g sodium restriction and 2 L fluid restriction. Please reinforce this as she has been having some difficulty with this. * All other home medications continued. Recommend follow-up with cardiology regarding severe aortic stenosis and new diagnosis of CHF. Recommend follow-up with nephrology regarding chronic kidney disease. Hospital Course: This is a 65-year-old female admitted to the floor for suspected new onset CHF. Patient was noted to have a systolic murmur on admission which she states she has had for quite some time. She was placed on a 2 g sodium restriction and 2 L fluid restriction and an echocardiogram was obtained showing "1. Left ventricul ar ejection fraction, by visual estimation is 45%. 2. Global and mildly decreased left ventricular systolic function. 3. Elevated mean left atrial pressure. 4. Moderate concentric left ventricular hypertrophy. 5. Normal right ventricular systolic function. 6. Probable bicuspid aortic valve. Severe aortic stenosis with PVD 4.34 m/s, MG 42 mmHg, ASHVIN 0.98cm2, DI 0.26. Moderate AI. 7. Trace mitral valve regurgitation. 8. Right ventricular systolic pressure is unable to be determined. Our dietitian did meet with the patient discussed CHF from a dietary standpoint. Unfortunately patient and her family were having some difficulty sticking to the fluid restriction. Family was noted to bring multiple drinks and for the patient so her JANEL's were likely inaccurate. We did significantly increase her Lasix and attempt to draw off extra fluid and she did ultimately lose 10 pounds. Unfortunately her renal function did decrease quite a bit. She does have baseline CKD. She was noted to have a cough while here and although there were no signs of any infiltrates it is thought she had a bronchitis, which was treated with azithromycin. She completed treatment while here and will not be prescribed any antibiotics at discharge. She will be sent home with as needed Tessalon Perles for cough. She will be discharged on 20 mg twice daily diuretic dosing of Lasix. She will be discharged on a 2 g sodium and 2 L fluid restriction. We recommend she follow- up with her primary care provider within 5 to 7 days of discharge, sooner if needed. We recommend cardiology follow-up at next available appointment regarding her severe aortic stenosis and new diagnosis of CHF. We also recommend patient follow-up with nephrology given her acute on chronic renal injury. Patient was instructed to discontinue her Metformin and her Cozaar for now due to her decreased GFR. PCP should monitor patient's labs and restart this if warranted. Blood pressure has been stable. She has been utilizing incentive spirometry and Acapella. She was instructed to weigh herself daily and record this in a journal, bring this with to all medical appointments. She was instructed to contact her primary care provider should she notice a 5 pound weight gain in 1 week or 3 pound weight gain in 1 day. She was advised to return the emergency room or contact her primary care provider should symptoms worsen. She was requiring up to 3 L of oxygen while here and was weaned off oxygen prior to discharge. Physical therapy and occupational therapy did evaluate the patient and deemed her appropriate for return home. She was discharged home today. - Patient Instructions Diet: Heart Healthy Diet, Low Sodium, Fluid Restriction Fluid Restriction: 2000 mL Activity: As Tolerated Showering/Bathing: May Shower, May Shower in 3 Days Notify Provider of: Fever, Increased Pain, Nausea and/or Vomiting Other/Special Instructions: Follow-up with primary care provider within 5 to 7 days of discharge, sooner if needed. Follow-up with cardiology at next available appointment. Follow-up with nephrology at next available appointment. Due to your kidney insufficiency your losartan and Metformin have been discontinued, as these can hurt your kidney worse. Your primary care provider or specialty providers may decide to reintroduce these medications later on. You completed antibiotic treatment for your bronchitis. No antibiotic will be prescribed at discharge. You will need to take a twice daily medication called Lasix. Many people referred to this as a water pill. You should take it daily at 6 AM, or right away when you wake up and then in the afternoon around 2 PM. Try to avoid taking it closer to bedtime as it may cause you to be up later passing urine. It is very important that you avoid sodium (salt) in your diet. You should limit this to 2 g daily. You should limit your amount of fluid you taken daily. You should aim for 2 L or less of fluid. This includes water, juice, or other liquids like soup. Any excess water that you take in will lead to difficulty with breathing and worsening of your heart failure. You were prescribed a medication called Tessalon Perles for cough. You may take these as needed as prescribed. You should weigh yourself daily. Record this in a journal and bring this with to all medical appointments. Contact your primary care provider if you notice a 3 pound or greater weight gain in 1 day or a 5 pound or greater weight gain in 1 week. Should symptoms return or worsen contact your primary care provider or return to the emergency room. - Discharge Plan *PRESCRIPTION DRUG MONITORING PROGRAM REVIEWED*: No *COPY OF PRESCRIPTION DRUG MONITORING REPORT IN PATIENT MARCY: No Prescriptions/Med Rec: Furosemide [Lasix] 20 mg PO BIDDIURETIC #40 tablet Benzonatate [Tessalon Perles] 100 mg PO Q8H PRN #12 cap PRN Reason: Cough Home Medications: Home Meds Aspirin [Adult Low Dose Aspirin EC] 81 mg PO DAILY 08/29/19 [History] Simvastatin [Zocor] 40 mg PO BEDTIME 08/29/19 [History] Insulin Isophane NPH, Human [NovoLIN N] 35 units SQ BID 05/20/21 [History] Benzonatate [Tessalon Perles] 100 mg PO Q8H PRN #12 cap 05/28/21 [Rx] Furosemide [Lasix] 20 mg PO BIDDIURETIC #40 tablet 05/28/21 [Rx] Oxygen Therapy Mode: Room Air Patient Handouts: Aortic Valve Stenosis, Food Basics for Chronic Kidney Disease, Heart Failure, Self-Care, [id number], Heart Failure Action Plan, Chronic Kidney Disease, Adult, [id number], Heart Failure, Diagnosis, [id number], Living With Heart Failure, Preventing Diabetes Mellitus Complications, Form - Daily Weight Record Forms: ED Department Discharge Referrals: Rea Elkins NP [Ordering Only Provider] - 06/09/21 11:15 am ([facility]) - Discharge Summary/Plan Comment DC Time >30 min.: Yes Total # of Minutes for Discharge Time: 45 - General Info Date of Service: 05/28/21 Admission Dx/Problem (Free Text: Admission Diagnosis/Problem Admission Diagnosis/Problem CHF, Congestive heart failure Functional Status: Reports: Pain Controlled, Tolerating Diet, Ambulating, Urinating, Incentive Spirometry, Other (Acapella ). Denies: New Symptoms - Review of Systems General: Reports: No Symptoms. Denies: Fever, Weakness, Fatigue, Malaise, Chills HEENT: Reports: No Symptoms. Denies: Headaches, Sore Throat Pulmonary: Reports: Cough. Denies: Shortness of Breath, Pleuritic Chest Pain, Sputum, Wheezing Cardiovascular: Reports: Dyspnea on Exertion, Edema. Denies: Chest Pain, Palpitations Gastrointestinal: Reports: No Symptoms. Denies: Abdominal Pain, Constipation, Diarrhea, Nausea, Vomiting Genitourinary: Reports: No Symptoms. Denies: Pain Musculoskeletal: Reports: No Symptoms Skin: Reports: No Symptoms. Denies: Cyanosis Neurological: Reports: No Symptoms. Denies: Confusion, Dizziness, Headache, Numbness, Pre-Existing Deficit, Tingling, Difficulty Walking, Weakness, Gait Disturbance Psychiatric: Reports: No Symptoms - Patient Data Vitals - Most Recent: Last Vital Signs Temp 98.1 F 05/28/21 08:45 Pulse 67 05/28/21 08:45 Resp 14 05/28/21 08:45 BP 119/81 05/28/21 08:45 Pulse Ox 90 L 05/28/21 08:45 Weight - Most Recent: 229 lb 9.6 oz I&O - Last 24 hours: Intake & Output 05/27/21 05/28/21 05/28/21 22:59 06:59 14:59 Intake Total 240 Output Total 650 250 Balance -410 -250 Lab Results - Last 24 hrs: Laboratory Results - last 24 hr 05/27/21 05/27/21 05/27/21 Range/Units 11:23 18:39 21:05 WBC (3.98-10.04) K/mm3 RBC (3.98-5.22) M/mm3 Hgb (11.2-15.7) gm/dl Hct (34.1-44.9) % MCV (79.4-94.8) fl MCH (25.6-32.2) pg MCHC (32.2-35.5) g/dl RDW Std Deviation (36.4-46.3) fL Plt Count (182-369) K/mm3 MPV (9.4-12.3) fl Neut % (Auto) (34.0-71.1) % Lymph % (Auto) (19.3-51.7) % Sharkey % (Auto) (4.7-12.5) % Eos % (Auto) (0.7-5.8) Baso % (Auto) (0.1-1.2) % Neut # (Auto) (1.56-6.13) K/mm3 Lymph # (Auto) (1.18-3.74) K/mm3 Sharkey # (Auto) (0.24-0.36) K/mm3 Eos # (Auto) (0.04-0.36) K/mm3 Baso # (Auto) (0.01-0.08) K/mm3 Sodium (136-145) mEq/L Potassium (3.5-5.1) mEq/L Chloride (98-107) mEq/L Carbon Dioxide (21-32) mEq/L Anion Gap (5-15) BUN (7-18) mg/dL Creatinine (0.55-1.02) mg/dL Est Cr Clr Drug Dosing mL/min Estimated GFR (MDRD) (>60) mL/min BUN/Creatinine Ratio (14-18) Glucose (70-99) mg/dL POC Glucose 270 H 235 H 314 H (70-99) mg/dL Calcium (8.5-10.1) mg/dL Magnesium (1.8-2.4) mg/dL Total Bilirubin (0.2-1.0) mg/dL AST (15-37) U/L ALT (14-59) U/L Alkaline Phosphatase (46-116) U/L Total Protein (6.4-8.2) g/dl Albumin (3.4-5.0) g/dl Globulin gm/dL Albumin/Globulin Ratio (1-2) 05/28/21 05/28/21 05/28/21 Range/Units 06:02 06:25 06:35 WBC 9.20 (3.98-10.04) K/mm3 RBC 4.16 (3.98-5.22) M/mm3 Hgb 11.1 L (11.2-15.7) gm/dl Hct 36.1 (34.1-44.9) % MCV 86.8 (79.4-94.8) fl MCH 26.7 (25.6-32.2) pg MCHC 30.7 L (32.2-35.5) g/dl RDW Std Deviation 41.4 (36.4-46.3) fL Plt Count 207 (182-369) K/mm3 MPV 12.7 H (9.4-12.3) fl Neut % (Auto) 57.2 (34.0-71.1) % Lymph % (Auto) 29.5 (19.3-51.7) % Sharkey % (Auto) 8.7 (4.7-12.5) % Eos % (Auto) 3.9 (0.7-5.8) Baso % (Auto) 0.3 (0.1-1.2) % Neut # (Auto) 5.26 (1.56-6.13) K/mm3 Lymph # (Auto) 2.71 (1.18-3.74) K/mm3 Sharkey # (Auto) 0.80 H (0.24-0.36) K/mm3 Eos # (Auto) 0.36 (0.04-0.36) K/mm3 Baso # (Auto) 0.03 (0.01-0.08) K/mm3 Sodium 141 (136-145) mEq/L Potassium 4.5 (3.5-5.1) mEq/L Chloride 102 (98-107) mEq/L Carbon Dioxide 33 H (21-32) mEq/L Anion Gap 10.5 (5-15) BUN 74 H (7-18) mg/dL Creatinine 2.2 H (0.55-1.02) mg/dL Est Cr Clr Drug Dosing 20.81 mL/min Estimated GFR (MDRD) 22 (>60) mL/min BUN/Creatinine Ratio 33.6 H (14-18) Glucose 194 H (70-99) mg/dL POC Glucose 177 H (70-99) mg/dL Calcium 8.7 (8.5-10.1) mg/dL Magnesium 2.3 (1.8-2.4) mg/dL Total Bilirubin 0.3 (0.2-1.0) mg/dL AST 16 (15-37) U/L ALT 18 (14-59) U/L Alkaline Phosphatase 58 (46-116) U/L Total Protein 6.1 L (6.4-8.2) g/dl Albumin 2.4 L (3.4-5.0) g/dl Globulin 3.7 gm/dL Albumin/Globulin Ratio 0.7 L (1-2) Med Orders - Current: Current Medications Acetaminophen (Acetaminophen 325 Mg Tab) 650 mg PO Q4H PRN PRN Reason: Pain (Mild 1-3)/fever Albuterol (Albuterol 6.7 Gm Inhaler) 0 gm INH Q2H PRN PRN Reason: SOB/Wheezing Albuterol/Ipratropium (Albuterol/Ipratropium 3.0-0.5 Mg/3 Ml Neb Soln) 3 ml NEB QIDRT PRN PRN Reason: SOB/Wheezing Last Admin: 05/23/21 21:01 Dose: 3 ml Documented by: Aspirin (Aspirin 81 Mg Tab.Ec) 81 mg PO DAILY [facility] Last Admin: 05/28/21 08:46 Dose: 81 mg Documented by: Azithromycin (Azithromycin 250 Mg Tab) 500 mg PO DAILY [facility] Stop: 05/29/21 09:46 Last Admin: 05/28/21 08:46 Dose: 500 mg Documented by: Benzonatate (Benzonatate 100 Mg Cap) 100 mg PO Q8H PRN PRN Reason: Cough Last Admin: 05/27/21 11:25 Dose: 100 mg Documented by: Docusate Sodium (Docusate Sodium 100 Mg Cap) 100 mg PO BID PRN PRN Reason: Constipation Last Admin: 05/26/21 08:46 Dose: 100 mg Documented by: Furosemide (Furosemide 20 Mg Tab) 20 mg PO BIDDIURETIC [facility] Last Admin: 05/28/21 05:08 Dose: 20 mg Documented by: Guaifenesin (Guaifenesin 100 Mg/5 Ml Soln 10 Ml Ud Cup) 200 mg PO Q6H [facility] Last Admin: 05/28/21 08:47 Dose: 200 mg Documented by: Heparin Sodium (Porcine) (Heparin Sodium 5,000 Units/Ml Vial) 5,000 units SUBCUT Q8H [facility] Last Admin: 05/28/21 05:08 Dose: 5,000 units Documented by: Promethazine HCl 12.5 mg/ (Sodium Chloride) 50.5 mls @ 100 mls/hr IV Q6H PRN PRN Reason: Nausea/Vomiting Insulin Glargine (Insulin Glargine,Hum.Rec.Anlog 100 Unit/Ml 3 Ml Pen) 10 unit SUBCUT DAILY [facility] Last Admin: 05/28/21 08:47 Dose: 10 unit Documented by: Insulin Human Lispro (Insulin Lispro 100 Unit/Ml 3 Ml Kwikpen) 0 unit SUBCUT QIDACANDBED [facility]; Protocol Last Admin: 05/28/21 08:47 Dose: 2 units Documented by: Simvastatin (Simvastatin 40 Mg Tab) 40 mg PO BEDTIME [facility] Last Admin: 05/27/21 21:35 Dose: 40 mg Documented by: Sodium Chloride (Sodium Chloride 0.9% 10 Ml Syringe) 10 ml FLUSH ASDIRECTED PRN PRN Reason: Keep Vein Open Last Admin: 05/19/21 14:01 Dose: 10 ml Documented by: Discontinued Medications Albuterol (Albuterol 0.083% 2.5 Mg/3 Ml Neb Soln) 2.5 mg NEB ONETIME ONE Stop: 05/19/21 12:28 Last Admin: 05/19/21 12:52 Dose: 2.5 mg Documented by: Furosemide (Furosemide 40 Mg/4 Ml Vial) 40 mg IVPUSH NOW ONE Stop: 05/19/21 13:00 Last Admin: 05/19/21 14:01 Dose: 40 mg Documented by: Furosemide (Furosemide 40 Mg/4 Ml Vial) 40 mg IVPUSH BID [facility] Last Admin: 05/20/21 08:33 Dose: 40 mg Documented by: Furosemide (Furosemide 40 Mg/4 Ml Vial) 60 mg IVPUSH BIDDIURETIC [facility] Last Admin: 05/22/21 05:41 Dose: 60 mg Documented by: Furosemide (Furosemide 40 Mg/4 Ml Vial) 80 mg IVPUSH BIDDIURETIC [facility] Last Admin: 05/25/21 06:36 Dose: 80 mg Documented by: Furosemide (Furosemide 40 Mg/4 Ml Vial) 40 mg IVPUSH BIDDIURETIC [facility] Last Admin: 05/26/21 05:16 Dose: 40 mg Documented by: Furosemide (Furosemide 20 Mg/2 Ml Vial) 20 mg IVPUSH BID ONE Stop: 05/26/21 08:16 Last Admin: 05/26/21 08:47 Dose: 20 mg Documented by: Furosemide (Furosemide 40 Mg/4 Ml Vial) 40 mg IVPUSH NOW ONE Stop: 05/27/21 08:02 Last Admin: 05/27/21 08:51 Dose: 40 mg Documented by: Furosemide (Furosemide 20 Mg/2 Ml Vial) 20 mg IVPUSH BIDDIURETIC [facility] Last Admin: 05/27/21 13:43 Dose: 20 mg Documented by: Guaifenesin (Guaifenesin 100 Mg/5 Ml Soln 10 Ml Ud Cup) 200 mg PO Q8H [facility] Last Admin: 05/25/21 10:44 Dose: 200 mg Documented by: Heparin Sodium (Porcine) (Heparin Sodium 5,000 Units/Ml Vial) 5,000 units SUBCUT Q8H [facility] Last Admin: 05/19/21 22:11 Dose: Not Given Documented by: Magnesium Sulfate 4 gm/ Premix 50 mls @ 12.5 mls/hr IV ONETIME ONE Stop: 05/19/21 17:37 Last Admin: 05/19/21 14:42 Dose: 12.5 mls/hr Documented by: Insulin Glargine (Insulin Glargine,Hum.Rec.Anlog 100 Unit/Ml 3 Ml Pen) 35 unit SUBCUT BID [facility] Last Admin: 05/20/21 09:30 Dose: Not Given Documented by: Insulin Glargine (Insulin Glargine,Hum.Rec.Anlog 100 Unit/Ml 3 Ml Pen) 10 unit SUBCUT ONETIME ONE Stop: 05/20/21 13:31 Last Admin: 05/20/21 13:37 Dose: 10 units Documented by: Losartan Potassium (Losartan 50 Mg Tab) 50 mg PO DAILY [facility] Last Admin: 05/20/21 08:33 Dose: 50 mg Documented by: Magnesium Hydroxide (Magnesium Hydroxide 400 Mg/5 Ml Susp 30 Ml Cup) 30 ml PO ONETIME ONE Stop: 05/21/21 06:52 Last Admin: 05/21/21 07:26 Dose: 30 ml Documented by: Magnesium Hydroxide (Magnesium Hydroxide 400 Mg/5 Ml Susp 30 Ml Cup) 30 ml PO ONETIME ONE Stop: 05/25/21 09:45 Last Admin: 05/25/21 10:43 Dose: 30 ml Documented by: Ondansetron HCl (Ondansetron 4 Mg Tab.Dis) 4 mg PO Q4H PRN PRN Reason: nausea, able to take PO Ondansetron HCl (Ondansetron 4 Mg/2 Ml Sdv) 4 mg IV Q4H PRN PRN Reason: Nausea/Vomiting - Exam Quality Assessment: Reports: DVT Prophylaxis. Denies: Supplemental Oxygen, Urine Catheter General: Reports: Alert, Oriented, Cooperative, No Acute Distress HEENT: Reports: Pupils Equal, Pupils Reactive, Mucous Membr. Moist/[place] Neck: Reports: Supple, Trachea Midline Lungs: Reports: Clear to Auscultation, Normal Respiratory Effort, Decreased Breath Sounds Cardiovascular: Reports: Regular Rate, Regular Rhythm, Murmurs (Systolic) GI/Abdominal Exam: Normal Bowel Sounds, Soft, Non-Tender, No Distention (Female) Exam: Deferred Rectal (Female) Exam: Deferred Back Exam: Reports: Normal Inspection, Full Range of Motion Extremities: Normal Inspection, Normal Range of Motion, Non-Tender, Normal Capillary Refill, Pedal Edema (trace ) Skin: Reports: Warm, Dry, Intact Neurological: Reports: No New Focal Deficit Psy/Mental Status: Reports: Alert, Normal Affect, Normal Mood
== END 2021-05-28 13:12 | disposition home or self-care (01) | DRG 291 ==
LOC: JD.ED 09:53 → JD.MS 18:01
PROVIDERS: ADMIT Hospitalist; ATTEND Hospitalist
DX: I13.0 Hypertensive heart and chronic kidney disease with heart failure and stage 1 through stage 4 chronic kidney disease, or unspecified chronic kidney disease (principal); H54.7 Unspecified visual loss; J96.01 Acute respiratory failure with hypoxia; I11.0 Hypertensive heart disease with heart failure; N17.9 Acute kidney failure, unspecified; E11.9 Type 2 diabetes mellitus without complications; I24.8 Other forms of acute ischemic heart disease; I50.9 Heart failure, unspecified; Z79.899 Other long term (current) drug therapy; Z20.822 Contact with and (suspected) exposure to COVID-19; N18.32 Chronic kidney disease, stage 3b; E11.22 Type 2 diabetes mellitus with diabetic chronic kidney disease; E66.01 Morbid (severe) obesity due to excess calories; J20.9 Acute bronchitis, unspecified; I35.0 Nonrheumatic aortic (valve) stenosis; E78.00 Pure hypercholesterolemia, unspecified; J45.909 Unspecified asthma, uncomplicated; Z79.4 Long term (current) use of insulin; Z98.41 Cataract extraction status, right eye; Z79.82 Long term (current) use of aspirin
CPT/HCPCS: 36415; 71045; 71045-26; 80048; 80053; 82947; 83036; 83735; 83880; 84484; 85025; 86140; 93005; 93306; 94640; 94760; 94761; 94762; 96365; 96366; 96375; 99221; 99232; 99239; 99285-25; A9270-GY; J1644; J1815; J1940; J3475; J7620-GY; U0002

== ENCOUNTER 2021-07-27 03:14 | Emergency (ER) | payer MEDICAID ==
[2021-07-27] MEDS ORDERED: Acetaminophen 325 MG Tab PO ONE (03:56)
== END 2021-07-27 04:07 | disposition home or self-care (01) ==
LOC: JD.ED 03:14
DX: I11.0 Hypertensive heart disease with heart failure (principal); I50.9 Heart failure, unspecified; J45.909 Unspecified asthma, uncomplicated; E11.9 Type 2 diabetes mellitus without complications; Z79.82 Long term (current) use of aspirin; Z79.4 Long term (current) use of insulin; Z79.899 Other long term (current) drug therapy
CPT/HCPCS: 99283; A9270

== ENCOUNTER 2021-07-27 11:13 | Emergency (ER) | payer MEDICAID ==
[2021-07-27] MEDS ORDERED: amLODIPine 5 MG Tab PO ONE (12:10)
== END 2021-07-27 12:25 | disposition home or self-care (01) ==
LOC: JD.ED 11:13
DX: I10 Essential (primary) hypertension (principal); E11.9 Type 2 diabetes mellitus without complications; E03.9 Hypothyroidism, unspecified; Z79.82 Long term (current) use of aspirin; Z79.4 Long term (current) use of insulin; Z79.899 Other long term (current) drug therapy
CPT/HCPCS: 99283; A9270

== ENCOUNTER 2021-09-15 09:37 | Day surgery (SDC) | payer MEDICARE, MEDICAID ==
[~2021-09-15 09:37] MED LIST changes: -Lidocaine 1% 0 ML ONE; -Propofol 200 MG/20 ML SDV ONE; +Sodium Chloride 0.9% 10 ML Syringe FLUSH SCH; -fentaNYL 100 MCG/2 ML SDV ONE
[2021-09-15] MEDS ORDERED: Propofol 200 MG/20 ML SDV ONE (09:44)
[2021-09-15] MEDS ORDERED: Lidocaine 1% 4 ML ONE (09:44)
== END 2021-09-15 12:08 | disposition home or self-care (01) ==
LOC: JD.SDS 09:37
PROVIDERS: ATTEND Surgery
DX: Z12.11 Encounter for screening for malignant neoplasm of colon (principal); K63.5 Polyp of colon; K57.30 Diverticulosis of large intestine without perforation or abscess without bleeding; I25.2 Old myocardial infarction; I50.9 Heart failure, unspecified; E11.9 Type 2 diabetes mellitus without complications; E78.00 Pure hypercholesterolemia, unspecified; E03.9 Hypothyroidism, unspecified
CPT/HCPCS: 45380; J2704; J7120; 00812; 88305

== ENCOUNTER 2021-09-17 14:43 | Emergency (ER) | payer MEDICAID, MEDICARE ==
[2021-09-17] MEDS ORDERED: Sodium Chloride 0.9% 10 ML Syringe FLUSH PRN (15:31)
[2021-09-17] MEDS ORDERED: Sodium Chloride 0.9% 1,000 ML IV ONE (15:31)
[2021-09-17] MEDS ORDERED: Ondansetron 4 MG/2 ML SDV IVPUSH ONE (15:31)
[2021-09-17 17:18] LABS: CORONAVIRUS COVID-19 NAA NEGATIVE (NEGATIVE)
== END 2021-09-17 18:30 | disposition home or self-care (01) ==
LOC: JD.ED 14:43
DX: K52.9 Noninfective gastroenteritis and colitis, unspecified (principal); E11.22 Type 2 diabetes mellitus with diabetic chronic kidney disease; I13.0 Hypertensive heart and chronic kidney disease with heart failure and stage 1 through stage 4 chronic kidney disease, or unspecified chronic kidney disease; N18.9 Chronic kidney disease, unspecified; I50.9 Heart failure, unspecified; E78.00 Pure hypercholesterolemia, unspecified; J45.909 Unspecified asthma, uncomplicated; E03.9 Hypothyroidism, unspecified; Z79.82 Long term (current) use of aspirin; Z79.899 Other long term (current) drug therapy; Z79.4 Long term (current) use of insulin; Z20.822 Contact with and (suspected) exposure to COVID-19
CPT/HCPCS: 0240U; 36415; 80053; 81001; 83735; 85025; 86140; 96374; 99284; J2405; J7030